=== PATIENT | female | born 1995 | race African-American/Black ===

== ENCOUNTER 2017-10-16 19:59 | Emergency (ER) | payer MEDICAID, SELFPAY ==
[2017-10-16 20:00] VITALS: BP 129/83; PULSE 86; RESP 15; TEMP 37.3; BMI 38.2
--- NOTE | 2017-10-16 21:32 | ED.VISSUMM ---
- ER Visit Summary Date of Service: 10/16/17 Chief Complaint: [] Bilateral ear pain History of Present Illness: The patient is a 22 F [] complaining of bilateral ear pain beginning 2 days ago. Denies fevers. Reports mild sore throat. No other complaints at this time. Physical Examination: [] HEENT exam reveals bilateral tympanic membrane erythema consistent with bilateral otitis media. Moist mucous membranes. Remainder of exam is unremarkable. Test Results: [] None. Emergency Department Course and Treatment: [] Patient provided oral Augmentin and ibuprofen for symptom relief. Patient provided with a prescription of Augmentin 875 #14. I encourage PCP follow-up. Treatment Plan: [] Follow-up with PCP, outpatient antibiotic prescription. Disposition: [] Discharge, stable. Impression: [] Bilateral otitis media This note was generated with [employer] dictation software. It may contain incorrect words, spelling, and punctuation that were not noted in review of the chart prior to signing ED Disposition - Plan for ED Patient: Chief Complaint: Ear Problem Referrals: Taye Majano MD [Primary Care Provider] -
--- NOTE | 2017-10-16 21:33 | ED.DEP ---
ED Disposition - Plan for ED Patient: Disposition: Home or Assisted Living Chief Complaint: Ear Problem Instructions: ED Otitis Media Acute Adult Prescriptions: Amoxicillin/Potassium Clav [Augmentin 875-125 Tablet] 1 ea PO BID #14 tab Referrals: Taye Majano MD [Primary Care Provider] -
[2017-10-16] MEDS: Amox/Clavulanate 875 MG Tablet PO (21:52)
[2017-10-16] MEDS: Ibuprofen 400 MG Tablet 800 MG PO (21:52)
[2017-10-16 21:54] VITALS: RESP 14
== END 2017-10-16 21:54 | disposition home or self-care (01) ==
LOC: ED 21:40
PROVIDERS: Emergency Provider Emergency Medicine; Family Provider Family Medicine; PCP Family Medicine
DX: H66.93 Otitis media, unspecified, bilateral (principal)
CPT/HCPCS: 99283

== ENCOUNTER 2018-05-24 19:25 | Emergency (ER) | payer MEDICAID, SELFPAY ==
[2018-05-24 19:25] VITALS: BP 123/74; PULSE 77; RESP 16; TEMP 37; O2SAT 97; BMI 38.4
--- NOTE | 2018-05-24 20:13 | ED.RN ---
PT STATES SHE IS GOING TO SEE HER FAMILY TOMORROW. LWBS.
== END 2018-05-24 20:05 | disposition left against medical advice (07) ==
LOC: ED 09-27 13:09
PROVIDERS: Emergency Provider Emergency Medicine; Family Provider Family Medicine; PCP Family Medicine
DX: Z53.21 Procedure and treatment not carried out due to patient leaving prior to being seen by health care provider (principal)

== ENCOUNTER 2018-06-04 18:49 | Emergency (ER) | payer MEDICAID, SELFPAY ==
[2018-06-04 18:50] VITALS: BP 135/74; PULSE 75; RESP 16; TEMP 36.7; O2SAT 98; BMI 39.3
--- NOTE | 2018-06-04 19:13 | EKG12_ITS ---
Test Reason : CHEST PAIN Blood Pressure : / mmHG Vent. Rate : 064 BPM Atrial Rate : 064 BPM P-R Int : 162 ms QRS Dur : 080 ms QT Int : 388 ms P-R-T Axes : 014 047 026 degrees QTc Int : 400 ms Normal sinus rhythm Septal infarct , age undetermined Abnormal ECG Confirmed by CONRADO RODRIGUEZ, DILSHAD ([id number]), desk editor ALONSO SARMIENTO ([id number]) on 06/08/2018 8:55:20 AM Referred By: ZHOU/JOHAN Confirmed By:DILSHAD CAMP MD
--- NOTE | 2018-06-04 19:13 | RAD_ITS ---
STUDY: X-RAY CHEST REASON FOR EXAM: Female, 23 years old. Chest pain TECHNIQUE: Single AP portable view of the chest. COMPARISON: 12/23/2015 FINDINGS: The lungs are clear and expanded. There is no demonstrated pleural abnormality. Normal size heart. Normal mediastinum and asad. Normal visualized pulmonary arteries. Normal visualized aortic arch and descending thoracic aorta. Normal visualized thoracic spine. Normal visualized ribs, clavicles, and shoulders. There is no demonstrated abnormality of the visualized soft tissue structures of the upper abdomen. RAD/Chest 1 View (Portable) IMPRESSION: Normal x-ray examination of the chest. Electronically Signed: Michael Vasquez DO at 20:27 EDT Tel , Service support ,
[2018-06-04 19:40] VITALS: BP 123/79; PULSE 78; RESP 16; O2SAT 98
[2018-06-04 20:06] LABS: Absolute Neutrophil Count 4.9 X10^3/uL (2.0-7.7); Basophil# 0.02 X10^3/uL; Basophil% 0.2 % (0-1); Eosinophils% 1.1 % (0-5); Hematocrit 41.8 % (37-47); Hemoglobin 15.1 g/dl (12.0-15.0); Lymphocyte % 35.5 % (19-41); Mean Corp Hgb Conc 36.1 g/gl (32-36); Mean Corpuscular Hgb 30.8 pg (27.0-32.0); Mean Corpuscular Volume 85.1 fL (81-99); Mean Platelet Vol. 9.6 fl (6.2-12.0); Monocyte# 0.76 X10^3/uL; Monocyte% 8.4 % (0-10); Neutrophil # 4.91 X10^3/uL (2.7-7.7); Neutrophil % 54.6 % (47-70); POSITIVE COUNT NO; POSITIVE DIFFERENTIAL NO; POSITIVE MORPHOLOGY NO; Platelet Count 325 K/mm3 (150-450); RBC Distribution Width CV 11.9 % (11.6-14.6); RBC Distribution Width SD 36.7 fl (35.1-43.9); Red Blood Count 4.91 M/mm3 (4.2-5.4)
[2018-06-04 20:18] LABS: Anion Gap 7 (5-15); BUN 15 mg/dL (7-18); BUN/Creat Ratio 18.1 RATIO (10-20); Calcium,Total 8.9 mg/dL (8.5-10.1); Chloride 106 mmol/L (98-107); Creatinine, Serum 0.83 mg/dL (0.55-1.02); EST Glomerular Filtration Rate 90 mL/min (>60); Est Glom Filt Rate - Afr Amer 109 mL/min (>60); Estimated Creatinine Clearance 82.66 ml/min; Glucose 75 mg/dL (74-106); Potassium 3.7 mmol/L (3.5-5.1); Sodium Level 139 mmol/L (136-145)
--- NOTE | 2018-06-04 21:09 | ED.VISSUMM ---
- ER Visit Summary Date of Service: 06/04/18 Chief Complaint: Chest pain right lower extremity contusion History of Present Illness: The patient is a 23 F who noticed anterior pain and swelling on the anterior basilio region, she has a history of von Willebrand's and thought it was a clot. She also had some sharp stabbing chest pain which has resolved. No fever chills no PE risk factors. Pain is not tearing or radiating to her back, she has no neurological symptoms. Physical Examination: [] Not appear in acute distress. Moist mucous membranes, no obvious facial deformity No C-spine tenderness supple neck. Regular rate and rhythm without any obvious murmurs Clear lungs bilaterally speaking in full sentences without any obvious respiratory distress Abdomen soft and nontender no guarding or rebound Moves all extremities without any difficulty or pain. There is a small area that is slightly raised on her anterior basilio, there is no erythema or calor, neurovascularly intact Skin does not show any obvious rashes or lesions, no trauma. Alert oriented ?3 with no gross focal deficit Emergency Department Course and Treatment: Patient had an unremarkable cardiac workup, I do not see an obvious hematoma but there may be a small underlying hematoma on her anterior basilio region, regardless this is not in the calf or thigh or anywhere where a DVT would present I reassured her she will be discharged in stable condition Discharge stable condition Impression: Chest pain nonspecific Right leg pain This note was generated with [employer] dictation software. It may contain incorrect words, spelling, and punctuation that were not noted in review of the chart prior to signing ED Disposition - Plan for ED Patient: Disposition: Home or Assisted Living Chief Complaint: Chest Pain Instructions: ED Chest Pain NonCardiac Referrals: Taye Majano MD [Primary Care Provider] - 2 Days
[2018-06-04 21:30] VITALS: BP 122/61; PULSE 62; RESP 16; O2SAT 99
== END 2018-06-04 21:31 | disposition home or self-care (01) ==
PROVIDERS: Emergency Provider Emergency Medicine; Family Provider Family Medicine; PCP Family Medicine
DX: R07.9 Chest pain, unspecified (principal); M79.661 Pain in right lower leg; M79.89 Other specified soft tissue disorders; D68.0 Von Willebrand disease
CPT/HCPCS: 71045; 80048; 84484; 85025; 93005; 99284; A4216

== ENCOUNTER 2019-12-26 19:26 | Emergency (ER) | payer SELFPAY ==
[2019-11-20 16:40] VITALS: BMI 38.2
[2019-12-26 19:27] VITALS: BP 152/86; PULSE 85; RESP 14; TEMP 36.8; O2SAT 98; BMI 36.1
--- NOTE | 2019-12-26 19:45 | ED.DCSUM_ITS ---
- ER Visit Summary Date of Service: 12/26/19 Chief Complaint: Headache History of Present Illness: The patient is a 24 F who presents with a headache that is been getting worse over the past 3 days. Patient states that she has been taking Tylenol for her headaches with no improvement. Patient states this feels different than previous migraines and that it has lasted longer. Patient states the pain still feels the same as prior migraine headaches but it has not responded to Tylenol like prior migraine headaches. Patient states the pain is localized to the left side of her head. Patient describes the pain as throbbing. Patient admits to some nausea and vomiting. Patient admits to some photophobia. Patient also admits to some intermittent diplopia which is typical of her migraine headaches. Physical Examination: Vital signs are stable. Patient is afebrile. Patient is in no acute distress. Oral mucosa is pink and moist. Neck is supple. Trachea is midline. There is no JVD noted. Heart was regular rate and rhythm. Lungs are clear and equal bilaterally. Abdomen is soft. Bowel sounds are normal. There is no tenderness. There is no rebound or guarding noted. Skin is warm dry. Cranial nerves II through XII are intact. There are no focal motor or sensory deficits noted. Extremities are intact. There is no calf tenderness or edema. Emergency Department Course and Treatment: Patient was given IV fluids, Reglan, Benadryl, and Toradol. Shortly after getting her medications she called out to the nurse and told the nurse that she needed to go home because her brother possibly broke his arm and she has the only vehicle to bring him to the emergency department. Patient requested to be discharged. Patient was able to ambulate without difficulty. Does not appear to be drowsy. Patient will be discharged home. Patient was instructed to follow-up with her primary care physician in 3 to 5 days. Patient was instructed to rest in a dark quiet room. Patient understood and was agreeable with the plan. All questions were answered. Disposition: Discharge home Impression: 1. Migraine headache This note was generated with [employer] software. It may contain incorrect words, spelling, and punctuation that were not noted in review of the chart prior to signing ED Disposition - Plan for ED Patient: Disposition: Home or Assisted Living Diagnosis: Migraine headache Instructions: ED, Migraine (Classical) Referrals: NOT,DEFINED [NON-STAFF] - 3-5 Days
[2019-12-26] MEDS: DiphenhydrAMINE 50 MG/ML Syringe 25 MG IV (19:54)
[2019-12-26] MEDS: 0.9% Normal Saline 1,000 ML 999 ML IV (19:54)
[2019-12-26] MEDS: Metoclopramide 10 MG/2 ML Vial IV (19:55)
[2019-12-26] MEDS: Ketorolac 30 MG/ML Syringe IV (19:55)
[2019-12-26 20:10] VITALS: BP 118/71; PULSE 86; RESP 16; O2SAT 96
== END 2019-12-26 20:49 | disposition home or self-care (01) ==
PROVIDERS: Emergency Provider Emergency Medicine
DX: G43.909 Migraine, unspecified, not intractable, without status migrainosus (principal); M54.2 Cervicalgia; Z72.0 Tobacco use
CPT/HCPCS: 96361; 96374; 96375; 99283; J7030; A4216

== ENCOUNTER → 2020-02-14 12:17 | Outpatient (CLI) | payer MEDICAID, SELFPAY ==
--- NOTE | 2020-02-14 12:35 | RAD_ITS ---
STUDY: X-RAY - RIGHT KNEE REASON FOR EXAM: Female, 24 years old. Patient states she has had right knee pain ever since her surgery on it in 2013 TECHNIQUE: 3 view(s) of the knee. COMPARISON: None. FINDINGS: No acute fracture, dislocation or osseous destruction. No significant joint space narrowing. No significant productive changes. No significant soft tissue swelling. IMPRESSION: Normal x-ray examination of the knee. Electronically Signed: Doron Ireland, at 22:01 EDT Tel , Service support , RAD/Knee 3 Views
== END ==
PROVIDERS: Visit Provider Nurse Practitioner Family
DX: M25.561 Pain in right knee (principal)
CPT/HCPCS: 73562

== ENCOUNTER → 2020-11-29 07:57 | Outpatient (CLI) | payer MEDICAID, SELFPAY ==
--- NOTE | 2020-11-29 08:19 | BI_ITS ---
MAMMOGRAPHY - BILATERAL SCREENING REASON FOR EXAM: Female, 25 years old. Routine annual screening examination. PERTINENT HISTORY: Mother with breast cancer. Grandmother with breast cancer. Aunts with breast cancer. TECHNIQUE: Digital bilateral breast salbador (3D mammographic acquisition) in the CC and MLO projections. 2-D mediolateral oblique (MLO) and craniocaudad (CC) views of both breasts were obtained. CAD: Full Field Digital Mammography with Computer Added Detection was performed. COMPARISON: None. Baseline examination. FINDINGS: Breast Composition: The breasts are heterogeneously dense, which may obscure small masses. There are no dominant masses or suspicious calcifications. No other significant abnormalities are identified. BI/SCRN MAMM (CAD)W/SALBADOR BILAT IMPRESSION: Negative screening mammogram. Yearly followup mammogram recommended. (A) ASSESSMENT CATEGORY: BIRADS Category 1: Negative. A letter regarding these results will be sent to the patient by the facility within 30 days. Approximately 10% of breast cancers are not detected by mammography. A normal mammogram should not delay biopsy of a clinically suspicious abnormality. [id number] Electronically Signed: Sunday Wallace MD at 10:00 EDT , Service support ,
== END ==
DX: Z12.31 Encounter for screening mammogram for malignant neoplasm of breast (principal); Z80.3 Family history of malignant neoplasm of breast
CPT/HCPCS: 77063; 77067

== ENCOUNTER 2020-12-05 11:28 | Emergency (ER) | payer MEDICAID, SELFPAY ==
[2020-12-05 11:29] VITALS: BP 157/88; PULSE 85; RESP 18; TEMP 36.4; O2SAT 98; BMI 31.9
--- NOTE | 2020-12-05 12:17 | RAD_ITS ---
STUDY: X-RAY - LEFT HAND REASON FOR EXAM: Female, 25 years old. Injury TECHNIQUE: 3 view(s) of the hand. COMPARISON: Comparison is made with prior study dated 01/25/2012. FINDINGS: Normal radiocarpal articulation. Normal distal radioulnar joint. Normal visualized carpal bones. Normal carpal articulations Normal carpometacarpal articulation of the thumb. Normal second through fifth carpometacarpal joints. Normal metacarpi. Normal metacarpophalangeal joint of the thumb. Normal interphalangeal joint of the thumb. Normal proximal and distal phalanges of the thumb. Normal metacarpophalangeal joints of the second through fifth fingers. Normal proximal and distal interphalangeal joints of the second through fifth fingers. Normal phalanges of the second through fifth fingers. The soft tissue structures are unremarkable. RAD/Hand Min 3 Views IMPRESSION: Normal x-ray examination of the hand. Electronically Signed: Sunday Wallace MD at 12:38 EDT , Service support ,
--- NOTE | 2020-12-05 13:10 | ED.DCSUM_ITS ---
History of Present Illness Chief Complaint: Upper Extremity Injury Informant: Patient Narrative: Patient presents with 1 week of left hand pain. She states it had been swollen. This morning she noted some redness but that is resolved. She notes pain over the dorsum of the left hand from the little and ring finger MCP joint proximally to the wrist joint. She denies any trauma. She states that she has been diagnosed with a fracture before without any trauma. 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 Past Medical History - Allergies and Home Meds Allergies/Adverse Reactions: Allergies hydrocodone bitartrate [From Vicodin] Adverse Reaction (Verified 12/05/20 11:33) Vomiting Primary Care Physician: [facility],Chioma Gilliland [Primary Care Provider] - Past Medical History: None Surgical History: noncontributory Smoking Status: Current every day smoker Drugs: None Review of Systems General: Denies: Chills, Fever, Sweats Eyes: Denies: Visual changes - bilaterally, Diplopia ENT: Denies: Rhinorrhea, Sore throat Cardiovascular: Denies: Chest pain, Palpitations Respiratory: Denies: Dyspnea, Cough, Dyspnea on exertion Gastrointestinal: Denies: Abdominal pain, Nausea, Vomiting, Diarrhea, Melena, Hematochezia Genitourinary: Denies: Dysuria, Hematuria, Frequency Musculoskeletal: Reports: Swelling, Extremity Pain. Denies: Back pain Skin: Denies: Rash, Wounds Neurological: Denies: Headache, Weakness, Numbness Physical Exam Vital Signs/Narrative: Vital Signs Temp Pulse Resp BP Pulse Ox 12/05/20 11:29 97.6 F L 85 18 157/88 H 98 Inital Vital Signs reviewed: Yes General: Well nourished, Well developed, No Acute Distress Head: Normocephalic, Atraumatic Eyes: Perrl, EOMI ENT: Moist mucous membranes, No rhinorrhea Neck: Supple, Nontender Cardiovascular: Regular rate, Regular rhythm, No murmurs Respiratory: No distress, CTA bilaterally, Chest nontender Abdomen: Soft, Nontender, Nondistended, Normal bowel sounds Back: Nontender, Normal Inspection Extremities: No edema, Tenderness - Tenderness to palpation over the fourth and fifth metacarpals. No deformity. Neurovascular intact. No erythema. No significant swelling or crepitance. Skin: Normal color, No rash Neurological: Alert, Oriented x3, Cranial nerves II-XII grossly intact, Normal Strength, Normal Sensation Psychological: Normal affect, Normal Mood Diagnostic/Tx/Re-eval Clinical Impression(s) from Imaging Studies Hand X-Ray 12/05/20 12:17 IMPRESSION: Normal x-ray examination of the hand. Electronically Signed: Sunday Wallace MD at 12:38 EDT , Service support , - Medical Decision Making My interpretation of the plain films of the left hand are no acute fracture. Allergy concurs. I would have her use anti-inflammatories rest with a cock-up splint follow-up with primary care 10 days if not improved ED Disposition - Plan for ED Patient: Disposition: Home or Assisted Living Diagnosis: Left hand tendonitis Instructions: ED Tendonitis Prescriptions: Naproxen [Naprosyn] 500 mg PO BID #20 tablet Prescription Printed Referrals: [facility],Chioma Gilliland [Primary Care Provider] - (10 days if not improved)
== END 2020-12-05 14:09 | disposition home or self-care (01) ==
PROVIDERS: Emergency Provider Emergency Medicine
DX: M77.8 Other enthesopathies, not elsewhere classified (principal); M79.642 Pain in left hand; F17.200 Nicotine dependence, unspecified, uncomplicated
CPT/HCPCS: 73130; 99283

== ENCOUNTER → 2020-12-19 14:02 | Outpatient (CLI) | payer MEDICAID, SELFPAY ==
[2020-12-05 11:29] VITALS: BMI 31.9
--- NOTE | 2020-12-19 14:10 | RAD_ITS ---
INDICATION: left wrist pain EXAMINATION/TECHNIQUE: X-RAY - LEFT XR Wrist Min 3 Views COMPARISON: None. FINDINGS: No acute fracture or malalignment. No blastic or lytic lesions. No degenerative changes are seen. The soft tissues are unremarkable. RAD/Wrist min 3 Views IMPRESSION: No acute radiographic abnormalities. Electronically Signed: Elmer Strauss MD at 22:16 EDT Tel , Service support ,
== END ==
DX: M25.532 Pain in left wrist (principal); M25.432 Effusion, left wrist
CPT/HCPCS: 73110

== ENCOUNTER → 2021-02-05 10:18 | Outpatient (CLI) | payer MEDICAID, SELFPAY ==
[2021-02-05 12:15] LABS: Erythrocyte Sedimentation Rate 2 mm/hr (0-30)
[2021-02-05 12:17] LABS: Absolute Lymphocyte Count 2.31 X10^3/uL (0.83-4.51); Basophil# 0.04 X10^3/uL; Basophil% 0.5 % (0-1); Eosinophil# 0.12 X10^3/uL; Eosinophils% 1.5 % (0-5); Hematocrit 42.7 % (37-47); Hemoglobin 14.7 g/dL (12.0-15.0); Lymphocyte # 2.31 X10^3/ul (0.83-4.51); Lymphocyte % 28.7 % (19-41); Mean Corp Hgb Conc 34.4 g/dL (32-36); Mean Corpuscular Hgb 30.1 pg (27.0-32.0); Mean Corpuscular Volume 87.5 fL (81-99); Mean Platelet Vol. 10.1 fl (6.2-12.0); Monocyte# 0.59 X10^3/uL; Monocyte% 7.3 % (0-10); NRBC Flagged by Analyzer 0 % (0-5); Neutrophil # 4.98 X10^3/uL (2.7-7.7); Neutrophil % 61.8 % (47-70); Platelet Count 315 K/mm3 (150-450); RBC Distribution Width CV 11.6 % (11.6-14.6); RBC Distribution Width SD 37.4 fl (35.1-43.9); Red Blood Count 4.88 M/mm3 (4.2-5.4); White Blood Count 8.1 K/mm3 (4.4-11.0)
[2021-02-05 12:35] LABS: ALB/GLOB Ratio 1.3 RATIO (0.9-2.4); AST(SGOT) 11 U/L (15-37); Alanine Aminotransfer ALT/SGPT 21 U/L (13-56); Albumin, Serum 3.9 g/dL (3.2-5.0); Alkaline Phosphatase 96 U/L (45-117); Anion Gap 7 (5-15); BUN 16 mg/dL (7-18); BUN/Creat Ratio 18.3 RATIO (10-20); CRP < 2.90 mg/L (0.0-3.0); Chloride 106 mmol/L (98-107); Creatinine, Serum 0.88 mg/dL (0.55-1.02); EST Glomerular Filtration Rate 83 mL/min (>60); Est Glom Filt Rate - Afr Amer 100 mL/min (>60); Globulin 3.1 g/dL (2.2-4.2); Glucose 102 mg/dL (74-106); Potassium 3.8 mmol/L (3.5-5.1); Sodium Level 139 mmol/L (136-145)
== END ==
PROVIDERS: PCP Nurse Practitioner Adult Health; Referring Provider Nurse Practitioner Adult Health; Visit Provider Nurse Practitioner Adult Health
DX: G50.1 Atypical facial pain (principal)
CPT/HCPCS: 36415; 80053; 85025; 85652; 86140

== ENCOUNTER 2021-02-07 14:06 | Emergency (ER) | payer MEDICAID, SELFPAY ==
[2021-02-07 14:07] VITALS: BP 143/84; PULSE 83; RESP 16; TEMP 35.8; O2SAT 98; BMI 35.0
--- NOTE | 2021-02-07 15:01 | CT_ITS ---
STUDY: CT BRAIN WITHOUT CONTRAST REASON FOR EXAM: Female, 25 years old. Pain RADIATION DOSAGE (If Supplied By Facility): CTDIvol = ( 38.43 ) mGy, DLP = ( 640.64 ) mGycm TECHNIQUE: Transaxial CT imaging of the brain was performed without administration of intravenous contrast material. Individualized dose optimization techniques were used for this CT. COMPARISON: No relevant priors. FINDINGS: Normal soft tissue structures. Normal calvarium. Normal size ventricles and extra-axial spaces for the patient''s age. Normal white matter tracts of the cerebral hemispheres. Normal basal ganglia and thalami. Normal brainstem. Normal cerebellum. There is no intracranial hemorrhage. There are no findings of an acute ischemic infarction. 1 opacified air cell at the tip of the right mastoid process. CT/Brain/Head without Contrast IMPRESSION: Normal unenhanced CT scan of the brain. One opacified air cell of the tip of the right mastoid process. Electronically Signed: Sabina Whitney MD at 15:53 EDT , Service support ,
--- NOTE | 2021-02-07 15:04 | EDS_ITS ---
HPI History of Present Illness Chief Complaint: Headache Narrative Narrative: 25-year-old female presenting with right facial pain. This is been present for 2 weeks. Patient was seen by her PCP and had lab work drawn which was normal. She had a normal sed rate. CBC and CMP were unremarkable. She was referred to rigging and controls aircraft mechanic who saw her today. He states that her eye is structurally normal. She does complain of some blurring in the vision intermittently. She also states she has a history of migraine headache but it does not usually last this long. Does not feel the same to her. She denies any dizziness, lightheadedness. [facility] Medical History Migraines Home Medications naproxen 500 mg PO BID #20 tablet 12/05/20 [Rx Last Taken Unknown] Allergy/AdvReac Type Severity Reaction Status Date / Time hydrocodone bitartrate AdvReac Vomiting Verified 02/07/21 14:09 [From Vicodin] Social History Smoking Status: Current every day smoker tobacco type: cigarettes ROS ROS ED Constitutional Constitutional ED: Denies chills, fever(s) or sweats Eyes Eyes: Reports blurry vision right; Denies change in vision ENT ENT ED: Denies ear pain or sore throat Cardiovascular Cardiovascular: Denies chest pain, palpitations or racing heartbeat Respiratory/Chest Respiratory/Chest: Denies cough, dyspnea or sputum Gastrointestinal Gastrointestinal: Denies abdominal pain, constipation, diarrhea, nausea or vomiting Genitourinary Genitourinary ED: Denies dysuria, hematuria or urinary frequency Musculoskeletal Musculoskeletal: Denies arthralgias, myalgias or neck pain Integumentary Denies abscess, Abrasions or rash Neurologic Neurologic: Reports headache(s); Denies paresthesias or weakness Psychiatric Psychiatric: Denies anxiety, depression, suicidal ideation or suicidal thoughts Endocrine Endocrinology: Denies polydipsia or polyuria EXAM Physical Exam Const Vital Signs: 02/07/21 14:07 Temperature 96.4 F L Temperature Source Temporal Pulse Rate 83 Respiratory Rate 16 Blood Pressure 143/84 H Blood Pressure Mean 103 Pulse Ox 98 Oxygen Delivery Method Room Air Positive well nourished General Appearance ED: NAD; Negative for pallor HEENT Reports normocephalic, head/scalp atraumatic and moist mucous membranes HEENT Narrative: No tenderness over the bilateral temples. atraumatic Eyes PERRL and EOMs intact bilaterally Neck no lymphadenopathy and supple Chest Wall inspection of chest normal and palpation of chest normal Resp normal respiratory effort and clear to auscultation bilaterally Auscultation: Negative for rales, rhonchi or wheezes Cardio regular rate and regular rhythm GI normal to inspection, nondistended, normoactive bowel sounds Narrative: Deferred Back/Spine Cervical Spine: Negative for cervical spine tenderness Extremity normal to inspection General Extremety ED: Yes edema and tenderness General Extremity: edema Neuro oriented x3 and CN's II-XII intact bilaterally Sensorium / Orientation: alert Motor Exam: strength 5/5 throughout Psych mental status grossly normal Attitude: No agitated Skin no rashes or lesions noted and no wounds General Skin Exam: Negative for jaundice or pallor MDM MDM MDM Narrative Medical decision making narrative: Patient seen and evaluated on arrival. Vital signs are stable and she is afebrile. She complains of pain to the right side of the scalp, face. I did review her outpatient lab work which shows a white blood cell count of 8.1, hemoglobin 14.7, hematocrit 42.7, platelets 315. Creatinine 0.88 BUN 16 electrolytes normal LFTs normal. ESR 2. Patient will be given Reglan, Benadryl. Obtain CT brain which is normal. Given the patient is already seen an rigging and controls aircraft mechanic to evaluate her right eye and her lab work is normal. I do not believe she needs anything else acutely. Patient states she feels better with a migraine cocktail. Patient will be referred to neurology. Patient amenable to this plan. Impression: 1. Headache 2. Right eye pain Radiography Diagnostic Testing: Radiology Impression Brain CT 02/07/21 15:01 IMPRESSION: Normal unenhanced CT scan of the brain. One opacified air cell of the tip of the right mastoid process. Electronically Signed: Sabina Whitney MD at 15:53 EDT , Service support , Discharge Plan Triage Chief Complaint: Headache ED Provider: John Bartlett Dx/Rx/DC Orders Instructions: ED Headache Unspecified Prescriptions: No Action naproxen 500 MG tablet 500 mg PO BID Qty: 20 RF: 0 Primary Care Provider: Bev Gomez Referrals: Kunal Catalan MD [STAFF PHYSICIAN] - As soon as possible Bev Gomez NP-C [Primary Care Provider] - Disposition Disposition: Home, self care
[2021-02-07] MEDS: 0.9% Normal Saline 1,000 ML 999 ML IV (15:30)
[2021-02-07] MEDS: Metoclopramide 10 MG/2 ML Vial IV (15:30)
[2021-02-07] MEDS: DiphenhydrAMINE 50 MG/ML Syringe 25 MG IV (15:30)
[2021-02-07 17:32] VITALS: BP 135/82; PULSE 71; RESP 18; O2SAT 98
== END 2021-02-07 17:36 | disposition home or self-care (01) ==
PROVIDERS: Emergency Provider Student in an Organized Health Care Education/Training Program; PCP Nurse Practitioner Adult Health
DX: R51.9 Headache, unspecified (principal); H57.11 Ocular pain, right eye; F17.210 Nicotine dependence, cigarettes, uncomplicated
CPT/HCPCS: 70450; 96361; 96374; 96375; 99282; J7030; A4216

== ENCOUNTER → 2021-02-27 06:23 | Outpatient (CLI) | payer MEDICAID, SELFPAY ==
[2021-02-07 14:07] VITALS: BMI 35.0
--- NOTE | 2021-02-27 06:41 | MRI_ITS ---
STUDY: MRI BRAIN WITH AND WITHOUT CONTRAST REASON FOR EXAM: Female, 25 years old. L FACE PAIN AFTER DENTAL PROCEDURE 2 MONTHS AGO TECHNIQUE: Standardized multiplanar fat and water weighted pulse sequences were obtained. IV 18 cc dotarem was administered for the contrast portion of the examination. COMPARISON: None. FINDINGS: Normal size of the ventricles and extra-axial spaces for the patient''s age. Normal white matter tracts of the supratentorial brain. There is no evidence for recent intracranial ischemia or other cause of cytotoxic edema on diffusion weighted imaging (DWI). Normal T2* images of the brain without demonstrated susceptibility artifact. There is no demonstrated hemosiderin stain. Normal bilateral basal ganglia. Normal thalami. There is no extra-axial fluid accumulation. Normal flow voids within the major intracranial circulation suggesting patency by spin echo criteria. Normal venous enhancement. There is no enhancing intra-axial or extra-axial abnormality. Normal sella turcica, pituitary gland, infundibular stalk, optic chiasm and hypothalamus. Normal tectal plate and pineal gland. Normal midbrain, tripp and medulla. Normal cerebellum. Normal basal cisterns. Normal bilateral temporal bones. Normal bilateral internal auditory canals. No demonstrated orbital abnormality, within the constraints of a routine brain study. Normal visualized paranasal sinuses. Normal calvarium and skull base. Normal visualized soft tissue structures. Normal visualized upper cervical spine. MRI/Brain W/WO Contrast IMPRESSION: Normal unenhanced and enhanced MRI of the brain. Electronically Signed: Gregory Gallegos MD at 8:13 EDT Tel , Service support ,
== END ==
DX: G50.1 Atypical facial pain (principal)
CPT/HCPCS: 70553; A9575

== ENCOUNTER 2021-04-27 23:23 | Emergency (ER) | payer MEDICAID, SELFPAY ==
[2021-04-27 23:24] VITALS: BP 135/81; PULSE 61; RESP 18; TEMP 36.6; O2SAT 98; BMI 34.9
--- NOTE | 2021-04-28 00:31 | EX.ED.DYSGE1 ---
HPI History of Present Illness Chief Complaint: Seizure Narrative Narrative: 26-year-old female presenting with concern for possible seizure. She states this is witnessed by her family. Patient states she has no history of seizures is not on any antiepileptic drugs. Patient does state that she was told in the past that she has abnormal reactions to stress and anxiety which caused the symptoms. She has chronic headache pain for which her neurologist tells her to smoke marijuana. She states this is due to her previous surgery for dental infection that has caused chronic pain in her head. Patient denies any fever, chills. She denies nausea or vomiting. She feels otherwise well currently. She states she is just a little bit sleepy. [facility] Medical History Migraines Seizures Home Medications NK 04/27/21 [History Last Taken Unknown] Allergy/AdvReac Type Severity Reaction Status Date / Time hydrocodone bitartrate AdvReac Vomiting Verified 04/27/21 23:27 [From Vicodin] Social History Smoking Status: Current every day smoker tobacco type: cigarettes ROS ROS ED Constitutional Constitutional ED: Denies chills or fever(s) Eyes Eyes: Denies blurry vision or diplopia ENT ENT ED: Denies rhinorrhea or sore throat Cardiovascular Cardiovascular: Denies chest pain or palpitations Respiratory/Chest Respiratory/Chest: Denies cough or dyspnea Gastrointestinal Gastrointestinal: Denies abdominal pain, nausea or vomiting Genitourinary Genitourinary ED: Denies dysuria or hematuria Musculoskeletal Musculoskeletal: Denies arthralgias or myalgias Integumentary Denies abscess or rash Neurologic Neurologic: Reports headache(s); Denies paresthesias Psychiatric Psychiatric: Denies anxiety or depression EXAM Physical Exam Const Vital Signs: 04/27/21 23:24 Temperature 97.9 F Temperature Source Temporal Pulse Rate 61 Respiratory Rate 18 Blood Pressure 135/81 H Blood Pressure Mean 99 Pulse Ox 98 Oxygen Delivery Method Room Air Positive well nourished HEENT Reports moist mucous membranes trauma Eyes PERRL and EOMs intact bilaterally Neck no lymphadenopathy and supple Resp normal respiratory effort and clear to auscultation bilaterally Cardio regular rate and regular rhythm Extremity normal to inspection General Extremety ED: Negative for tenderness Neuro oriented x3, CN's II-XII intact bilaterally and no sensory deficits noted Sensorium / Orientation: alert Motor Exam: strength 5/5 throughout Psych mental status grossly normal Skin no rashes or lesions noted and no wounds MDM MDM MDM Narrative Medical decision making narrative: Patient presenting for a mid patient herself states she has no seizure history and states she does have a history of abnormal reactions to stress or anxiety. She states has been under a lot of stress secondary to working 7 days a week. Patient is from out of town and she is here to see her girlfriend and this is where she stays. Patient has a chronic headache which is unchanged. She has no focal neurologic deficits on examination. Her vital signs are stable and she is afebrile. She states that this time she feels tired and she does not want any work-up or evaluation and she just wants to be discharged home. I feel the patient has the capacity to make decision at this time. We did discuss return precautions. Impression: 1. Altered mental status resolved Discharge Plan Triage Chief Complaint: Seizure ED Provider: John Bartlett Dx/Rx/DC Orders Instructions: Diagnosing Epilepsy Prescriptions: No Action NK RF: 0 Primary Care Provider: [facility] - Disposition Disposition: Home, Self Care
[2021-04-28 00:45] VITALS: BP 133/60; PULSE 67; RESP 18; O2SAT 96
== END 2021-04-28 00:47 | disposition home or self-care (01) ==
LOC: ED 04-28 00:47
PROVIDERS: Emergency Provider Student in an Organized Health Care Education/Training Program
DX: G40.909 Epilepsy, unspecified, not intractable, without status epilepticus (principal); F17.210 Nicotine dependence, cigarettes, uncomplicated; F41.9 Anxiety disorder, unspecified
CPT/HCPCS: 99283

== ENCOUNTER → 2021-05-06 12:20 | Outpatient (CLI) | payer MEDICAID, SELFPAY ==
[2021-05-06 13:31] LABS: Hemoglobin A1c 5.1 % (3.8-5.6)
[2021-05-06 14:27] LABS: T4 Free Direct 0.97 ng/dL (0.76-1.46); Thyroid Stim Hormone (TSH) 0.68 uIU/mL (0.358-3.74)
== END ==
DX: G40.89 Other seizures (principal)
CPT/HCPCS: 36415; 83036; 84439; 84443

== ENCOUNTER → 2021-05-30 12:16 | Outpatient (CLI) | payer MEDICAID, SELFPAY ==
--- NOTE | 2021-05-30 14:51 | TELEMED_ITS ---
[facility] Tele[facility] has confirmed receipt of a request for visit. This document confirms receipt of the order initiating the consult. To find the results of the consultation, please view the patient's reports for the scanned Telemed Consult.
== END ==
PROVIDERS: Referring Provider Nurse Practitioner Adult Health; Visit Provider Nurse Practitioner Adult Health
DX: G40.89 Other seizures (principal)
CPT/HCPCS: 95819

== ENCOUNTER 2021-09-17 11:35 | Outpatient (CLI) | payer MEDICAID, SELFPAY ==
[2021-09-17 12:44] LABS: Absolute Lymphocyte Count 2.25 X10^3/uL (0.83-4.51); Absolute Neutrophil Count 5.8 X10^3/uL (2.0-7.7); Basophil# 0.03 X10^3/uL; Basophil% 0.3 % (0-1); Eosinophil# 0.06 X10^3/uL; Eosinophils% 0.7 % (0-5); Hemoglobin 14.9 g/dL (12.0-15.0); Lymphocyte # 2.25 X10^3/ul (0.83-4.51); Lymphocyte % 25.5 % (19-41); Mean Corp Hgb Conc 34.7 g/dL (32-36); Mean Corpuscular Hgb 30.3 pg (27.0-32.0); Mean Corpuscular Volume 87.4 fL (81-99); Mean Platelet Vol. 9.7 fl (6.2-12.0); Monocyte% 7.9 % (0-10); NRBC Flagged by Analyzer 0 % (0-5); Neutrophil # 5.77 X10^3/uL (2.7-7.7); Neutrophil % 65.4 % (47-70); Platelet Count 304 K/mm3 (150-450); RBC Distribution Width CV 11.9 % (11.6-14.6); RBC Distribution Width SD 38.2 fl (35.1-43.9); Red Blood Count 4.92 M/mm3 (4.2-5.4); White Blood Count 8.8 K/mm3 (4.4-11.0)
[2021-09-17 13:47] LABS: Internal QC Validated? YES +Cl - CLEAR BKGD; Monotest Negative (Negative)
== END 2021-09-17 23:59 | disposition short-term general hospital (02) ==
LOC: LAB 11:37
PROVIDERS: Visit Provider Nurse Practitioner Adult Health
DX: R59.1 Generalized enlarged lymph nodes (principal); R53.83 Other fatigue
CPT/HCPCS: 36415; 85025; 86308

== ENCOUNTER 2021-11-27 14:14 | Outpatient (CLI) | payer MEDICAID, SELFPAY ==
[2021-11-27 16:23] LABS: Absolute Lymphocyte Count 2.39 X10^3/uL (0.83-4.51); Absolute Neutrophil Count 4.4 X10^3/uL (2.0-7.7); Basophil# 0.02 X10^3/uL; Basophil% 0.3 % (0-1); Eosinophil# 0.08 X10^3/uL; Eosinophils% 1.1 % (0-5); Hematocrit 41.7 % (37-47); Hemoglobin 14.4 g/dL (12.0-15.0); Lymphocyte # 2.39 X10^3/ul (0.83-4.51); Lymphocyte % 31.7 % (19-41); Mean Corp Hgb Conc 34.5 g/dL (32-36); Mean Corpuscular Hgb 30.1 pg (27.0-32.0); Mean Corpuscular Volume 87.2 fL (81-99); Mean Platelet Vol. 9.9 fl (6.2-12.0); Monocyte# 0.59 X10^3/uL; Monocyte% 7.8 % (0-10); NRBC Flagged by Analyzer 0 % (0-5); Neutrophil # 4.44 X10^3/uL (2.7-7.7); Neutrophil % 58.8 % (47-70); Platelet Count 379 K/mm3 (150-450); RBC Distribution Width CV 11.7 % (11.6-14.6); RBC Distribution Width SD 37.6 fl (35.1-43.9); Red Blood Count 4.78 M/mm3 (4.2-5.4); White Blood Count 7.5 K/mm3 (4.4-11.0)
[2021-11-27 16:51] LABS: ALB/GLOB Ratio 1.2 RATIO (0.9-2.4); AST(SGOT) 11 U/L (15-37); Alanine Aminotransfer ALT/SGPT 23 U/L (13-56); Albumin, Serum 3.9 g/dL (3.2-5.0); Alkaline Phosphatase 94 U/L (45-117); Anion Gap 4 (5-15); BUN 10 mg/dL (7-18); BUN/Creat Ratio 11.1 RATIO (10-20); Calcium,Total 9.4 mg/dL (8.5-10.1); Chloride 106 mmol/L (98-107); Cholesterol 166 mg/dL (200); EST Glomerular Filtration Rate 80 mL/min (>60); Est Glom Filt Rate - Afr Amer 96 mL/min (>60); Globulin 3.2 g/dL (2.2-4.2); Glucose 97 mg/dL (74-106); High Density Lipoprotein 32 mg/dL; Potassium 3.9 mmol/L (3.5-5.1); Protein, Total 7.1 g/dL (6.4-8.2); Sodium Level 139 mmol/L (136-145); Triglycerides 180 mg/dL; Very Low Density Lipoprotein 36 mg/dL (5-40)
== END 2021-11-27 23:59 | disposition home or self-care (01) ==
LOC: LAB 14:16
PROVIDERS: Referring Provider Nurse Practitioner Adult Health; Visit Provider Nurse Practitioner Adult Health
DX: F31.81 Bipolar II disorder (principal)
CPT/HCPCS: 36415; 80053; 80061; 85025

== ENCOUNTER 2021-12-10 12:55 | Outpatient (CLI) | payer MEDICAID, SELFPAY ==
--- NOTE | 2021-12-10 12:57 | BI_ITS ---
MAMMOGRAPHY - BILATERAL SCREENING REASON FOR EXAM: Female, 26 years old. Routine annual screening examination. PERTINENT HISTORY: Mother with breast cancer. Grandmother with breast cancer. Aunts with breast cancer. TECHNIQUE: Digital bilateral breast salbador (3D mammographic acquisition) in the CC and MLO projections. 2-D mediolateral oblique (MLO) and craniocaudad (CC) views of both breasts were obtained. CAD: Full Field Digital Mammography with Computer Added Detection was performed. COMPARISON: Comparison is made with prior study dated 11/29/2020. FINDINGS: Breast Composition: The breasts are heterogeneously dense, which may obscure small masses. There are no dominant masses or suspicious calcifications. No other significant abnormalities are identified. There has been no significant change since the prior study. BI/SCRN MAMM (CAD)W/SALBADOR BILAT IMPRESSION: Stable bilateral screening mammogram. Yearly follow-up mammogram recommended. (A) ASSESSMENT CATEGORY: BIRADS Category 1: Negative. A letter regarding these results will be sent to the patient by the facility within 30 days. Approximately 10% of breast cancers are not detected by mammography. A normal mammogram should not delay biopsy of a clinically suspicious abnormality. [id number] Electronically Signed: Sunday Wallace MD at 13:34 EDT ,
== END 2021-12-10 23:59 | disposition home or self-care (01) ==
LOC: OPBI 12:55
PROVIDERS: Visit Provider Nurse Practitioner Adult Health
DX: Z12.31 Encounter for screening mammogram for malignant neoplasm of breast (principal); Z80.3 Family history of malignant neoplasm of breast
CPT/HCPCS: 77063; 77067

== ENCOUNTER 2021-12-17 10:22 | Outpatient (CLI) | payer MEDICAID, SELFPAY ==
[2021-12-17 11:18] LABS: Hemoglobin A1c 5.3 % (3.8-5.6)
[2021-12-17 11:40] LABS: Vitamin B12 479 pg/mL (211-911)
[2021-12-17 11:50] LABS: Thyroid Stim Hormone (TSH) 1.12 uIU/mL (0.358-3.74)
== END 2021-12-17 23:59 | disposition home or self-care (01) ==
LOC: LAB 10:24
PROVIDERS: Visit Provider Nurse Practitioner Adult Health
DX: R53.83 Other fatigue (principal); Z13.1 Encounter for screening for diabetes mellitus
CPT/HCPCS: 36415; 82607; 83036; 84443

== ENCOUNTER → 2022-08-31 | Outpatient (CLI) | payer MEDICAID, SELFPAY ==
[2022-08-31 12:16] LABS: Absolute Lymphocyte Count 2.44 X10^3/uL (0.83-4.51); Absolute Neutrophil Count 3.9 X10^3/uL (2.0-7.7); Basophil# 0.03 X10^3/uL; Basophil% 0.4 % (0-1); Eosinophil# 0.09 X10^3/uL; Eosinophils% 1.3 % (0-5); Hematocrit 44.9 % (37-47); Hemoglobin 15.1 g/dL (12.0-15.0); Lymphocyte # 2.44 X10^3/ul (0.83-4.51); Lymphocyte % 34.6 % (19-41); Mean Corp Hgb Conc 33.6 g/dL (32-36); Mean Corpuscular Hgb 30.5 pg (27.0-32.0); Mean Corpuscular Volume 90.7 fL (81-99); Mean Platelet Vol. 10.3 fl (6.2-12.0); Monocyte# 0.59 X10^3/uL; Monocyte% 8.4 % (0-10); NRBC Flagged by Analyzer 0 % (0-5); Neutrophil # 3.89 X10^3/uL (2.7-7.7); Neutrophil % 55.2 % (47-70); Platelet Count 298 K/mm3 (150-450); RBC Distribution Width CV 11.7 % (11.6-14.6); Red Blood Count 4.95 M/mm3 (4.2-5.4); White Blood Count 7.1 K/mm3 (4.4-11.0)
[2022-08-31 12:36] LABS: ALB/GLOB Ratio 1.2 RATIO (0.9-2.4); AST(SGOT) 10 U/L (15-37); Alanine Aminotransfer ALT/SGPT 20 U/L (13-56); Albumin, Serum 3.8 g/dL (3.2-5.0); Alkaline Phosphatase 99 U/L (45-117); Anion Gap 3 (5-15); BUN 11 mg/dL (7-18); Calcium,Total 9.3 mg/dL (8.5-10.1); Chloride 105 mmol/L (98-107); Creatinine, Serum 0.92 mg/dL (0.55-1.02); EST Glomerular Filtration Rate 77 mL/min (>60); Est Glom Filt Rate - Afr Amer 94 mL/min (>60); Globulin 3.3 g/dL (2.2-4.2); Glucose 95 mg/dL (74-106); Lipase 116 U/L (73-393); Potassium 3.9 mmol/L (3.5-5.1); Protein, Total 7.1 g/dL (6.4-8.2); Sodium Level 139 mmol/L (136-145)
== END | disposition home or self-care (01) ==
LOC: LAB 10:49
PROVIDERS: Referring Provider Nurse Practitioner Family; Visit Provider Nurse Practitioner Family
DX: R11.10 Vomiting, unspecified (principal)
CPT/HCPCS: 36415; 80053; 83690; 85025

== ENCOUNTER → 2022-10-28 | Outpatient (CLI) | payer BC, MEDICAID, SELFPAY ==
--- NOTE | 2022-10-28 08:50 | RAD_ITS ---
STUDY: X-RAY - RIGHT ELBOW REASON FOR EXAM: Female, 27 years old. Injury. Pain. TECHNIQUE: 3 view(s) of the elbow. COMPARISON: None. FINDINGS: Normal visualized humerus, radius and ulna. Normal radiocapitellar and ulnotrochlear articulations. The soft tissue structures are unremarkable. RAD/Elbow min 3 Views IMPRESSION: No abnormality of the right elbow. Electronically Signed: Vipul Hill, at 12:37 EST ,
== END | disposition home or self-care (01) ==
LOC: RAD 08:45
PROVIDERS: Referring Provider Nurse Practitioner Family; Visit Provider Nurse Practitioner Family
DX: S59.901A Unspecified injury of right elbow, initial encounter (principal); X58.XXXA Exposure to other specified factors, initial encounter
CPT/HCPCS: 73080

== ENCOUNTER → 2023-01-14 | Outpatient (CLI) | payer BC, MEDICAID, SELFPAY ==
--- NOTE | 2023-01-14 11:37 | US_ITS ---
STUDY: ULTRASOUND TRANSVAGINAL CLINICAL: Female, 27 years old. Irregular menses. Constant vaginal bleeding for 5 months. TECHNIQUE: Transvaginal COMPARISON: None. FINDINGS: Uterus is anteverted and midline measuring 6.8 x 4.3 x 2.3 cm.. There are no myometrial masses. Endometrium measures 3 mm in thickness and is hyperechoic.. There are no endometrial masses, and there is no fluid in the endometrial cavity. Normal uterine cervix. Normal right ovary, measuring 2.6 x 2.3 x 3.1 cm. There are multiple follicles without a dominant cyst. Normal vascularity on Doppler imaging. Normal left ovary, measuring 2.5 x 1.7 x 3.3 cm. There are multiple follicles without a dominant cyst. Normal vascularity on Doppler imaging. There is no free fluid in the pelvis. Polycystic ovary disease: No. US/Transvaginal Non- IMPRESSION: Normal pelvic ultrasound. Electronically Signed: Tony Ortiz DO at 19:00 EDT ,
== END | disposition home or self-care (01) ==
PROVIDERS: Referring Provider Nurse Practitioner Women's Health; Visit Provider Nurse Practitioner Women's Health
DX: N92.5 Other specified irregular menstruation (principal)
CPT/HCPCS: 76830

== ENCOUNTER → 2023-01-18 | Outpatient (CLI) | payer BC, MEDICAID, SELFPAY ==
[2023-01-18 16:30] LABS: Hematocrit 42.3 % (37-47); Hemoglobin 14.9 g/dL (12.0-15.0); Mean Corp Hgb Conc 35.2 g/dL (32-36); Mean Corpuscular Hgb 30.5 pg (27.0-32.0); Mean Corpuscular Volume 86.5 fL (81-99); Mean Platelet Vol. 9.7 fl (6.2-12.0); Platelet Count 269 K/mm3 (150-450); RBC Distribution Width CV 11.7 % (11.6-14.6); RBC Distribution Width SD 37.2 fl (35.1-43.9); Red Blood Count 4.89 M/mm3 (4.2-5.4)
[2023-01-18 17:13] LABS: Iron 78 ug/dL (50-170); Iron Binding Capacity,Total 353 ug/dL (250-450); PERCENT IRON SATURATION 22.1 % (15.0-55.0); Thyroid Stim Hormone (TSH) 0.84 uIU/mL (0.358-3.74)
== END | disposition home or self-care (01) ==
DX: R53.83 Other fatigue (principal)
CPT/HCPCS: 36415; 83540; 83550; 84443; 85027

== ENCOUNTER 2023-02-19 21:07 | Emergency (ER) | payer BC, MEDICAID, SELFPAY ==
[2023-02-19 21:08] VITALS: BP 136/90; PULSE 89; RESP 16; TEMP 36.4; O2SAT 100
[2023-02-19 21:14] VITALS: BMI 33.6
--- NOTE | 2023-02-19 21:39 | EX.ED.UPPERE ---
HPI History of Present Illness Chief Complaint: Laceration Detail of Chief Complaint: Injury left index finger Informant: patient Occured/Mechanism Comment: Cut at work Onset/Context/Timing Context: Sudden Onset Timing: Continuous Quality of Pain: - (No) Location: Radial tip of the left index finger Current Severity: Gone Maximum Severity: Mild Worsened by: Initial injury Relieved by: Not applicable Associated Symptoms Associated Symptoms: Negative for Parasthesia, Weakness or Loss of Funtion Narrative Narrative: Patient is a 27-year-old [id number] woman who presents with laceration to the left index finger. Denies paresthesia, anesthesia or motor weakness. She is not on antithrombotic or anticoagulant. She is presently on no medication. Tetanus Immunization: 5-10 years Prior similar symptoms: Yes Recent Illness/Hospitalization: No PFSH PFSH Medical History Migraines Von willebrand disease, type 1 Home Medications buspirone 10 mg tablet 10 mg PO BID 10/28/22 [History Last Taken Unknown] cariprazine 3 mg capsule (Vraylar) 3 mg PO DAILY 10/28/22 [History Last Taken Unknown] melatonin 1 mg tablet 1 mg PO HS PRN 10/28/22 [History Last Taken Unknown] prednisone 20 mg tablet 20 mg PO BID #2 tabs 10/28/22 [Rx Last Taken Unknown] celecoxib 200 mg capsule (Celebrex) 200 mg PO BID #30 caps 11/04/22 [Rx Last Taken Unknown] Allergy/AdvReac Type Severity Reaction Status Date / Time hydrocodone bitartrate AdvReac Vomiting Verified 02/19/23 21:07 [From Vicodin] Surgical History History of arthroscopic knee surgery History of placement of ear tubes History of tonsillectomy and adenoidectomy Social History Smoking Status: Current every day smoker tobacco type: cigarettes ROS ROS ED Musculoskeletal Musculoskeletal: Denies back pain, myalgias, neck pain or other Neurologic Neurologic: Denies paresthesias or weakness Hematologic/Lymphatic Hematologic/Lymphatic: Reports easy bleeding and easy bruising; Denies lymphadenopathy EXAM Physical Exam Const Vital Signs: 02/19/23 21:08 Temperature 97.6 F L Temperature Source Temporal Pulse Rate 89 Respiratory Rate 16 Blood Pressure 136/90 H Blood Pressure Mean 105 Pulse Ox 100 Oxygen Delivery Method Room Air Positive well nourished, well developed and obese General Appearance ED: well developed and NAD Nutritional Appearance: obese HEENT Reports moist mucous membranes normocephalic and atraumatic Eyes PERRL and EOMs intact bilaterally Neck full ROM Resp normal respiratory effort Cardio regular rate and regular rhythm Extremity Negative for normal to inspection Extremity Narrative: Patient has avulsion of skin radial tip of left index finger. Median, radial and ulnar function intact. Extensor and slight tenderness function intact. The flexor digitorum superficialis and flexor digitorum profundus are intact. Capillary fill is normal. Neuro oriented x3, CN's II-XII intact bilaterally, no focal motor deficits and no sensory deficits noted Sensorium / Orientation: alert Psych mental status grossly normal Skin Skin Narrative: Skin avulsion to bite 3 mm MDM MDM MDM Narrative Medical decision making narrative: Patient is not actively bleeding. Patient has a superficial skin avulsion. Treatment is symptomatic. Discharge Plan Triage Chief Complaint: Laceration ED Provider: Steve Brenner Dx/Rx/DC Orders Clinical Impression: Avulsion of skin of finger Instructions: ED Skin Avulsion Prescriptions: No Action buspirone 10 mg tablet 10 mg PO BID melatonin 1 mg tablet 1 mg PO HS PRN Vraylar 3 mg capsule 3 mg PO DAILY prednisone 20 mg tablet 20 mg PO BID Qty: 2 0RF celecoxib [Celebrex] 200 mg capsule 200 mg PO BID Qty: 30 0RF Primary Care Provider: [facility] Hawthorne Referrals: [facility] Rodriguez [Primary Care Provider] - As Needed Disposition Disposition: Home, Self Care
== END 2023-02-19 21:56 | disposition home or self-care (01) ==
PROVIDERS: Emergency Provider Emergency Medicine; Visit Provider Emergency Medicine
DX: S61.211A Laceration without foreign body of left index finger without damage to nail, initial encounter (principal); E66.9 Obesity, unspecified; Z79.899 Other long term (current) drug therapy; F17.210 Nicotine dependence, cigarettes, uncomplicated
CPT/HCPCS: 99282

== ENCOUNTER → 2023-04-06 | Outpatient (CLI) | payer MEDICAID, SELFPAY ==
--- NOTE | 2023-04-06 14:56 | RAD_ITS ---
INDICATION: LOW BACK PAIN EXAMINATION/TECHNIQUE: X-RAY - XR Spine Thoracic 3 Views COMPARISON: 06/04/2018 chest radiograph. FINDINGS: 3 views of the thoracic spine. BONES: Normal anatomic alignment without evidence of fracture or subluxation. No concerning bony lesion or abnormal sclerosis to suggest lesion. DISCS/JOINTS: No significant degenerative change. SOFT TISSUES: Unremarkable. RAD/Thoracic Spine 3 Views IMPRESSION: Unremarkable thoracic spine. If there is persistent clinical concern for spine fracture and this is a trauma patient, recommend dedicated thoracic spine CT. Electronically Signed: Steve Prieto MD at 23:40 EDT ,
--- NOTE | 2023-04-06 15:00 | RAD_ITS ---
INDICATION: low back pain EXAMINATION/TECHNIQUE: X-RAY - XR Spine Lumbar 2 or 3 Views COMPARISON: No comparison. FINDINGS: 3 views of the lumbar spine. BONES: Normal anatomic alignment without evidence of fracture or subluxation. No concerning bony lesion or abnormal sclerosis to suggest lesion. DISCS/JOINTS: No significant degenerative change. SOFT TISSUES: Unremarkable. RAD/Lumbar Spine 2 or 3 Views IMPRESSION: Unremarkable lumbar spine. If there is persistent clinical concern for spine fracture and this is a trauma patient, recommend dedicated lumbar spine CT. Electronically Signed: Steve Prieto MD at 21:09 EDT ,
== END | disposition home or self-care (01) ==
LOC: RAD.FUTURE 14:51 → RAD 14:52
PROVIDERS: Referring Provider Nurse Practitioner Family; Visit Provider Nurse Practitioner Family
DX: M54.50 Low back pain, unspecified (principal)
CPT/HCPCS: 72072; 72100

== ENCOUNTER 2023-08-20 20:57 | Emergency (ER) | payer SELFPAY ==
[2023-08-20 20:59] VITALS: BP 121/50; PULSE 65; RESP 16; TEMP 36.2; O2SAT 97; BMI 35.4
--- NOTE | 2023-08-20 21:35 | CT_ITS ---
INDICATION: seizure, headache EXAMINATION: CT BRAIN WITHOUT CONTRAST, CTA HEAD, AND CTA NECK TECHNIQUE: Noncontrast axial images were obtained of the brain. Subsequently, routine carotid CT angiogram protocol was performed without and with IV contrast. In addition, images were obtained of the [place] of [place]. NASCET criteria using the distal ICAs for comparison were used for evaluation of stenoses. 3D reconstructions were reviewed. A radiation dose optimization technique was used for this scan. IV Contrast dosage and agent: 100 mL of Isovue-370 COMPARISON: Prior study dated: MRI performed 02/27/2021 FINDINGS: --CT BRAIN WITHOUT CONTRAST: BRAIN PARENCHYMA: No intra- or extra-axial hemorrhage. No evidence of acute infarct. No intracranial mass or mass effect. There is preservation of the tomlin/white matter interface. Posterior fossa structures are unremarkable. CSF SPACES: Appropriate for age. No hydrocephalus. Basal cisterns are patent. CALVARIUM, SKULL BASE, PARANASAL SINUSES AND MASTOID AIR CELLS: Clear. No discrete lytic or blastic abnormalities. ASPECTS Score for Acute Strokes: 10 --CTA NECK: AORTIC ARCH AND BRANCHES: Normal anatomy, patent. RIGHT CCA: No occlusion, significant stenosis or dissection. RIGHT ICA: No occlusion, significant stenosis or dissection. LEFT CCA: No occlusion, significant stenosis or dissection. LEFT ICA: No occlusion, significant stenosis or dissection. RIGHT VERTEBRAL ARTERY: No occlusion, significant stenosis or dissection. LEFT VERTEBRAL ARTERY: No occlusion, significant stenosis or dissection. NECK SOFT TISSUES: The lung apices show no acute abnormality. No cervical lymphadenopathy. No acute osseous abnormality. --CTA HEAD: --Anterior circulation: ICAs: No significant stenosis at the intracranial/visualized segments. ACAs: No significant stenosis at the visualized segments. ACOM: Present. MCAs: No significant stenosis at the visualized segments. --Posterior circulation: PCOMs: Patent bilaterally. operating room orderly: No significant stenosis at the visualized segments. BASILAR ARTERY: No significant stenosis. VERTEBRAL ARTERIES: No significant stenosis at the intradural/visualized segments. No evidence of intracranial aneurysm or vascular malformation. The dural venous sinuses are well opacified. CT/CTA Head AND Neck W/ Contrast IMPRESSION: Negative CT Brain, CTA Carotid, and CTA Brain. Electronically Signed: Titi Jordan MD at 22:40 EST ,
--- NOTE | 2023-08-20 21:37 | EDS_ITS ---
HPI History of Present Illness Chief Complaint: Seizure Detail of Chief Complaint: Seizure Informant: patient and spouse/S.O. Narrative Narrative: Patient presents to the emergency department after having a seizure this evening. Patient was at a bowling alley with friends and family. She had had an argument with her fianc?. She apparently had complained of a headache and went to the restroom and sat down. Patient then was found to be seizing with whole body tonic-clonic like activity and unresponsive. Fianc? states symptoms lasted about 5 minutes and then she started to wake up and then had another episode that lasted about 2 minutes. Patient has history of seizure last which was 3 years ago. Patient states she is never been on seizure medicine because seizures are typically stress related and induced. Patient denies recent illness. Fianc? states that she has been complaining of headaches daily for 2 years. Patient just feels tired. Patient states that headaches run the gamut and sometimes she has nausea and vomiting with them and sometimes bright lights bother her eyes but not always. [facility] Medical History Migraines Von willebrand disease, type 1 Home Medications melatonin 1 mg tablet 5 mg PO HS PRN sleep 10/28/22 [History Last Taken Unknown] Allergy/AdvReac Type Severity Reaction Status Date / Time hydrocodone bitartrate AdvReac Vomiting Verified 02/19/23 21:07 [From Vicodin] Surgical History History of arthroscopic knee surgery History of placement of ear tubes History of tonsillectomy and adenoidectomy Social History Smoking Status: Current every day smoker tobacco type: cigarettes and e- cigarettes ROS ROS ED Review of Systems ROS Unobtainable: other Constitutional Constitutional ED: Reports lethargy; Denies chills, fever(s), sweats or weight loss Eyes Eyes: Denies blurry vision, change in vision or diplopia ENT ENT ED: Denies rhinorrhea or sore throat Cardiovascular Cardiovascular: Denies chest pain, orthopnea or racing heartbeat Respiratory/Chest Respiratory/Chest: Denies cough, dyspnea, dyspnea on exertion, orthopnea or sputum Gastrointestinal Gastrointestinal: Denies abdominal pain, diarrhea, nausea or vomiting Genitourinary Genitourinary ED: Denies dysuria, hematuria or urinary frequency Musculoskeletal Musculoskeletal: Denies arthralgias, back pain, myalgias or neck pain Integumentary Denies abscess, Abrasions or rash Neurologic Neurologic: Reports other Details: Your ; Denies headache(s) or weakness Psychiatric Psychiatric: Denies anxiety, depression or suicidal thoughts Endocrine Endocrinology: Denies polydipsia, polyphagia or polyuria Hematologic/Lymphatic Hematologic/Lymphatic: Denies easy bleeding, easy bruising or lymphadenopathy Allergic/Immunologic Allergic/Immunologic ED: Denies mouth swelling, tongue swelling or urticaria EXAM Physical Exam Narrative Exam Narrative: Patient did not lose control of bowel or bladder. Const Vital Signs: 08/20/23 20:59 08/20/23 23:12 Temperature 97.1 F L Temperature Source Temporal Pulse Rate 65 57 L Respiratory Rate 16 20 H Blood Pressure 121/50 H 132/85 H Blood Pressure Mean 73 100 Pulse Ox 97 97 Oxygen Delivery Method Room Air Room Air Positive well nourished and well developed General Appearance ED: well developed and NAD HEENT Reports TM's clear and moist mucous membranes HEENT Narrative: No bite wounds noted to the tongue or buccal mucosa or lips. normocephalic and atraumatic; Negative for trauma or tenderness Tympanic Membrane ED: Yes TM's clear Eyes PERRL and EOMs intact bilaterally General Eye ED: Negative for pale conjunctiva or scleral icterus Neck no lymphadenopathy, supple and no JVD General: Negative for tenderness Chest Wall inspection of chest normal and palpation of chest normal Chest: Negative for tenderness Resp normal respiratory effort and clear to auscultation bilaterally Effort and Inspection: Negative for respiratory distress or pain with movement Auscultation: Negative for rhonchi, wheezes or diminished lung sounds Cardio regular rate, regular rhythm, S1 normal heart sound, S2 normal heart sound and no murmurs Peripheral Pulses: pulses 2+ throughout GI normal to inspection, nondistended, normoactive bowel sounds, soft to palpation, non-tender, non-distended and no masses Back/Spine no CVA tenderness and no thoracic nor lumbar tenderness Extremity normal to inspection General Extremety ED: Negative for edema General Extremity: Negative for edema Neuro oriented x3, CN's II-XII intact bilaterally, no sensory deficits noted and gait normal Sensorium / Orientation: awake, alert, oriented to person, oriented to place and oriented to time Motor Exam: strength 5/5 throughout and strength abnormal Psych mental status grossly normal Skin no rashes or lesions noted and no wounds MDM MDM MDM Narrative Medical decision making narrative: Months with history of headaches and anxiety related seizures. Today she had a seizure per significant other initially lasted 5 minutes and then another 1 lasted about 2 minutes. Patient did not lose control of bowel or bladder and she did not bite her tongue or oral mucosa. IV line established. Patient had CTA of head and neck which were normal. She describes several years long history of chronic headaches. She currently does not see a neurologist. Basic lab workup obtained showed normal WBC, 7.7 with hemoglobin 14.6 and platelet count of 282. Chemistries and remark well. LFTs were normal your normal. Patient will be medicated with Toradol and Reglan and Benadryl. Suspect her headache may be chronic migraine. At this point we will not treat for seizure as it is unclear if this is nonepileptic seizure versus true seizure. Will refer to neurology for follow-up. Lab Data Attestation: I reviewed the patient's lab results. Labs: Laboratory Results - last 24 hr 08/20/23 21:50 WBC 7.7 RBC 4.86 Hgb 14.6 Hct 42.1 MCV 86.6 MCH 30.0 MCHC 34.7 RDW Std Deviation 37.6 RDW Coeff of Nazia 11.9 Plt Count 282 MPV 9.6 Immature Gran % (Auto) 0.300 Neut % (Auto) 58.3 Lymph % (Auto) 32.7 [place] % (Auto) 7.2 Eos % (Auto) 0.8 Baso % (Auto) 0.7 Absolute Neuts (auto) 4.5 Absolute Lymphs (auto) 2.51 Nucleated RBC % 0 Sodium 140 Potassium 3.7 Chloride 111 H Carbon Dioxide 27.0 Anion Gap 2 L BUN 12 Creatinine 0.98 Estim Creat Clear Calc 73.14 Est GFR (MDRD) Af Amer 86 Est GFR (MDRD) Non-Af 71 BUN/Creatinine Ratio 12.3 Glucose 98 Calcium 8.8 Total Bilirubin 0.30 AST 9 L ALT 22 Alkaline Phosphatase 114 Total Protein 6.8 Albumin 3.8 Globulin 3.0 Albumin/Globulin Ratio 1.3 Urine Color Yellow Urine Clarity Clear Urine pH 6.5 Ur Specific Ponce 1.010 Urine Protein 15 H Urine Glucose (UA) Normal Urine Ketones Negative Urine Occult Blood 25 H Urine Nitrite Negative Urine Bilirubin Negative Urine Urobilinogen Normal Ur Leukocyte Esterase Negative Urine RBC 0-5 SEEN Urine WBC 0 SEEN Ur Squamous Epith Cells 0-5 SEEN Urine Bacteria 0 SEEN Urine Mucus 0 SEEN Radiography Diagnostic Testing: Clinical Impression(s) from Imaging Studies Head/Neck CTA 08/20/23 21:35 IMPRESSION: Negative CT Brain, CTA Carotid, and CTA Brain. Electronically Signed: Titi Jordan MD at 22:40 EST , Discharge Plan Triage Chief Complaint: Seizure ED Provider: Dominic Aguirre Dx/Rx/DC Orders Clinical Impression: Headache, Seizure Instructions: ED, Migraine (Classical), ED Seizure, Recurrent (Adult) Prescriptions: No Action melatonin 1 mg tablet 5 mg PO HS PRN (Reason: sleep) Primary Care Provider: [facility] Rodriguez Referrals: Kunal Catalan MD [Non-Staff -Ordering Privileges] [facility] - Disposition Disposition: Home, Self Care
[2023-08-20 21:59] LABS: Bacteria 0 SEEN /hpf (None Seen); Mucous, Urine 0 SEEN /hpf (<or=2+); White Blood Cells 0 SEEN /hpf (0-5)
[2023-08-20 22:00] LABS: Absolute Lymphocyte Count 2.51 X10^3/uL (0.83-4.51); Absolute Neutrophil Count 4.5 X10^3/uL (2.0-7.7); Basophil# 0.05 X10^3/uL; Basophil% 0.7 % (0-1); Color, Urine Yellow (Yellow); Eosinophil# 0.06 X10^3/uL; Eosinophils% 0.8 % (0-5); Glucose, Dipstick Normal (Normal); Hematocrit 42.1 % (37-47); Hemoglobin 14.6 g/dL (12.0-15.0); Ketone-Dipstick Negative (Negative); Leukocyte Esterase-Dipstick Negative /ul (Negative); Lymphocyte # 2.51 X10^3/ul (0.83-4.51); Lymphocyte % 32.7 % (19-41); Mean Corp Hgb Conc 34.7 g/dL (32-36); Mean Corpuscular Volume 86.6 fL (81-99); Mean Platelet Vol. 9.6 fl (6.2-12.0); Monocyte# 0.55 X10^3/uL; Monocyte% 7.2 % (0-10); NRBC Flagged by Analyzer 0 % (0-5); Neutrophil # 4.48 X10^3/uL (2.7-7.7); Neutrophil % 58.3 % (47-70); Nitrite-Dipstick Negative (Negative); Occult Blood-Urine 25 /ul (Negative); Platelet Count 282 K/mm3 (150-450); Protein-Dipstick 15 mg/dl (Negative); RBC Distribution Width CV 11.9 % (11.6-14.6); RBC Distribution Width SD 37.6 fl (35.1-43.9); Red Blood Count 4.86 M/mm3 (4.2-5.4); Urine Bilirubin Dipstick Negative (Negative); Urine Clarity Clear (Clear); Urine Urobilinogen Normal (Normal); Urine pH 6.5 (5.0 - 8.0); White Blood Count 7.7 K/mm3 (4.4-11.0)
[2023-08-20 22:06] LABS: Red Blood Cells-Urine 0-5 SEEN /hpf (0-5); Squamous Epithelial Cells - UA 0-5 SEEN /hpf (5-10)
[2023-08-20 22:16] LABS: ALB/GLOB Ratio 1.3 RATIO (0.9-2.4); AST(SGOT) 9 U/L (15-37); Alanine Aminotransfer ALT/SGPT 22 U/L (13-56); Albumin, Serum 3.8 g/dL (3.2-5.0); Alkaline Phosphatase 114 U/L (45-117); Anion Gap 2 (5-15); BUN 12 mg/dL (7-18); BUN/Creat Ratio 12.3 RATIO (10-20); Calcium,Total 8.8 mg/dL (8.5-10.1); Chloride 111 mmol/L (98-107); Creatinine, Serum 0.98 mg/dL (0.55-1.02); EST Glomerular Filtration Rate 71 mL/min (>60); Est Glom Filt Rate - Afr Amer 86 mL/min (>60); Estimated Creatinine Clearance 73.14 ml/min; Glucose 98 mg/dL (74-106); Potassium 3.7 mmol/L (3.5-5.1); Protein, Total 6.8 g/dL (6.4-8.2); Sodium Level 140 mmol/L (136-145)
[2023-08-20] MEDS: Metoclopramide 10 MG/2 ML Vial IV (23:07)
[2023-08-20] MEDS: Ketorolac 30 MG/ML Syringe IV (23:10)
[2023-08-20] MEDS: DiphenhydrAMINE 50 MG/ML Syringe 25 MG IV (23:10)
[2023-08-20 23:12] VITALS: BP 132/85; PULSE 57; RESP 20; O2SAT 97
[2023-08-20 23:42] VITALS: BP 132/85; PULSE 61; RESP 15; O2SAT 98
== END 2023-08-20 23:43 | disposition home or self-care (01) ==
PROVIDERS: Emergency Provider Emergency Medicine; Visit Provider Emergency Medicine
DX: R51.9 Headache, unspecified (principal); R56.9 Unspecified convulsions; F17.210 Nicotine dependence, cigarettes, uncomplicated; F17.290 Nicotine dependence, other tobacco product, uncomplicated
CPT/HCPCS: 70496; 70498; 80053; 81001; 85025; 96374; 96375; 99285; Q9967; A4216

== ENCOUNTER → 2023-09-15 | Outpatient (CLI) | payer MEDICAID, SELFPAY ==
[2023-09-15 12:31] LABS: Absolute Lymphocyte Count 1.86 X10^3/uL (0.83-4.51); Absolute Neutrophil Count 2.9 X10^3/uL (2.0-7.7); Basophil# 0.03 X10^3/uL; Basophil% 0.6 % (0-1); Eosinophil# 0.08 X10^3/uL; Eosinophils% 1.5 % (0-5); Hematocrit 43.9 % (37-47); Hemoglobin 15.2 g/dL (12.0-15.0); Lymphocyte # 1.86 X10^3/ul (0.83-4.51); Mean Corp Hgb Conc 34.6 g/dL (32-36); Mean Corpuscular Hgb 30.2 pg (27.0-32.0); Mean Corpuscular Volume 87.3 fL (81-99); Mean Platelet Vol. 10.1 fl (6.2-12.0); Monocyte# 0.42 X10^3/uL; Monocyte% 7.9 % (0-10); NRBC Flagged by Analyzer 0 % (0-5); Neutrophil # 2.91 X10^3/uL (2.7-7.7); Neutrophil % 54.8 % (47-70); Platelet Count 257 K/mm3 (150-450); RBC Distribution Width CV 11.4 % (11.6-14.6); RBC Distribution Width SD 36.6 fl (35.1-43.9); Red Blood Count 5.03 M/mm3 (4.2-5.4); White Blood Count 5.3 K/mm3 (4.4-11.0)
--- OUTSIDE RECORDS SUMMARY | 2023-09-15 13:03 | XMS RPT_ITS | CCD ---
Author Name Unknown Address [address] [place] [address] Organization [facility] Care Team Providers Care Director Of Cardiac Cath Lab Name Role Phone Rodriguez Thomas Unavailable Unavailable Rodriguez Thomas Unavailable Unavailable James Healy Unavailable Unavailable James Healy Unavailable Unavailable [facility] Unavailable Unavailable Cr Lassiter Unavailable Unavailable PROVIDER, UNKNOWN Unavailable Unavailable PROVIDER, UNKNOWN Unavailable Unavailable KESHAV QUINONES Primary Care Physician Keshav Gomez CNP K Unavailable [phone] DIANA VEE Attending Unavailable KESHAV QUINONES Primary Care Unavailab MICHI Brown Attending Unavailable ALYSSA BROCK [facility] Primary Care Provider Un available PAUL SARMIENTO Referring Unavailable MADELEINE KAPOOR Referring Unavailable Allergies Allergy Classification Reported Allergen(s) Allergy Type Date of Onset Reaction(s) Facility (4 sources) Acetaminophen / HYDROcodone; Translations: [acetaminophen-hyd rocodone] Drug Allergy 6 Vomiting [facility] Work Phone: (5 sources) Aspirin; Translations: [aspirin] Drug Allergy 6 Other: See Comments [facility] Work Phone: (5 sources) Ibuprofen; Translations: [ibuprofen] Drug Allergy 6 Other: See Comments [facility] Work Phone: Medications Current Medications Medication Drug Class(es) Dates Sig (Normalized) Sig (Original) Excedrin Mild Headache (1 source) Central Nervous System Stimulant, Methylxanthine Start: 05-14-2017 Excedrin Mild Headache Dose = 2 tab(s), Oral, 0 Refill(s) Start Date: 05/14/17 Status: Ordered busPIRone hydrochloride 10 mg oral tablet (1 source) Start: 01-16-2022 busPIRone 10 mg oral tablet Dose : 10 mg = 1 tab(s), Oral, TID, 0 Refill(s) Start Date: 01/16/22 Status: Ordered fluticasone propionate 0.05 mg/actuat metered dose nasal spray (4 sources) Corticosteroid Start: 01-16-2022 End: 01-23-2022 take 1 dose nasal route twice daily Flonase 50 mcg/inh nasal spray Dose = 2 spray(s), Nostril, each, BID, # 1 EA, 0 Refill(s), Sinusitis Viral upper respiratory tract infection Start Date: 01/16/22 Stop Date: 01/23/22 Status: Ordered Completed/Discontinued Medications Medication Drug Class(es) Dates Sig (Normalized) Sig (Original) baclofen 10 mg oral tablet (1 source) gamma-Aminobutyri c Acid-ergic Agonist Start: 04-18-2021 End: 10-03-2022 take 1 tablet by mouth every eight hours as needed baclofen (LIORESAL) 10 mg tablet Take 1 tablet by mouth three times daily as needed. 45 tablet 2 04/18/2021 10/03/2022 Discontinued Problems Active Problems Problem Classification Problem Date Documented Da te Episodic/Chronic Coagulation and hemorrhagic disorders (4 sources) Blood coagulation disorder, categorized by value of screening test; Translations: [von Willebrand disorder] Onset: 01-06-2016 04-20-2014 Chronic Past or Other Problems Problem Classification Problem Date Documented Da te Episodic/Chronic Epilepsy; convulsions (3 sources) Seizure; Translations: [Unspecified convulsions] Onset: 05-07-2021 05-07-2021 Episodic Results Test Name Value Interpretation Reference Range Facil ity Vital Signs Date Time Vital Sign Value Performing Clinician Facility 07-27-2023 14:19-0500 Body temperature 98.01 [degF] Madeleine Kapoor APRN.DRYCLEANER Work Phone: [facility] 07-27-2023 14:19-0500 Body weight 93.08 kg Madeleine Kapoor MISSION COORDINATOR.DRYCLEANER Work Phone: [facility] 07-27-2023 14:19-0500 Diastolic blood pressure 60 mm[Hg] Madeleine Kapoor MISSION COORDINATOR.DRYCLEANER Work Phone: [facility] 07-27-2023 14:19-0500 Heart rate 78 /min Madeleine Kapoor MISSION COORDINATOR.DRYCLEANER Work Phone: [facility] 07-27-2023 14:19-0500 Respiratory rate 16 /min Madeleine Kapoor MISSION COORDINATOR.DRYCLEANER Work Phone: [facility] 07-27-2023 14:19-0500 SaO2% (BldA) [Mass fraction] 99 % Madeleine Kapoor MISSION COORDINATOR.DRYCLEANER Work Phone: [facility] 07-27-2023 14:19-0500 Systolic blood pressure 110 mm[Hg] Madeleine Aquinosushant MISSION COORDINATOR.DRYCLEANER Work Phone: [facility] 06-23-2023 14:32-0400 Body temperature 98.4 [degF] Paul Sarmiento MISSION COORDINATOR.DRYCLEANER Work Phone: [facility] 06-23-2023 14:32-0400 Body weight 91.81 kg Paul Sarmiento MISSION COORDINATOR.DRYCLEANER Work Phone: [facility] 06-23-2023 14:32-0400 Diastolic blood pressure 78 mm[Hg] Paul Sarmiento MISSION COORDINATOR.DRYCLEANER Work Phone: [facility] 06-23-2023 14:32-0400 Heart rate 75 /min Paul Sarmiento MISSION COORDINATOR.DRYCLEANER Work Phone: [facility] 06-23-2023 14:32-0400 Respiratory rate 21 /min Paul Sarmiento MISSION COORDINATOR.DRYCLEANER Work Phone: [facility] 06-23-2023 14:32-0400 SaO2% (BldA) [Mass fraction] 98 % Paul Sarmiento MISSION COORDINATOR.DRYCLEANER Work Phone: [facility] 06-23-2023 14:32-0400 Systolic blood pressure 118 mm[Hg] Paul Sarmiento MISSION COORDINATOR.DRYCLEANER Work Phone: [facility] 01-16-2022 08:17-0400 Body height [address] VITALY PEREZ MD [facility] 01-16-2022 08:17-0400 Body temperature 98.6 [degF] DR VITALY PEREZ MD [facility] 01-16-2022 08:17-0400 Body weight 88.[address] VITALY PEREZ MD [facility] 01-16-2022 08:17-0400 Diastolic blood pressure 85 mm[Hg] DR VITALY PEREZ MD [facility] 01-16-2022 08:17-0400 Heart rate 85 /min DR VITALY PEREZ MD [facility] 01-16-2022 08:17-0400 Respiratory rate 18 /min DR VITALY PEREZ MD [facility] 01-16-2022 08:17-0400 Systolic blood pressure 131 mm[Hg] DR VITALY PEREZ MD [facility] Encounters Encounter Date Encounter Type Care Provider Facility Start: 07-27-2023 End: 07-27-2023 ambulatory MADELEINE KAPOOR Facility:[facility] Start: 07-27-2023 End: 07-27-2023 Office outpatient visit 15 minutes Madeleine Kapoor MISSION COORDINATOR.DRYCLEANER Work Phone: [facility] Procedures Date Procedure Procedure Detail Performing Clinician Knee region structur e (body structure) DR VITALY PEREZ MD Tonsillectomy and adenoidectomy DR VITALY PEREZ MD Tympanostomy DR VITALY DUNCAN MD Plan of Treatment Date Care Activity Detail Author Start: 09-28-2025 PAP TESTING PAP TESTING [facility] Start: 05-14-2023 Influenza vaccination Influenza Vacc ine (#1) [facility] Start: 09-13-2022 DEPRESSION ASSESSMENT DEPRESSION ASS ESSMENT [facility] Start: 05-14-2022 Influenza vaccination INFLUENZA (#1) [facility] Start: 02-19-2018 Urine microalbumin profile [facility] Start: 2000 PNEUMOCOCCAL (1 - PCV) PNEUMOCOCCAL (1 - PCV) [facility] Start: 2000 Pneumococcal vaccination Pneum ococcal Vaccine (1 - PCV) [facility] Start: 1994 COVID-19 VACCINE (#1) COVID-19 VACCI NE (#1) [facility] Immunizations Immunization Date Immunization Notes Care Provider Fa laurie 08-30-2012 influenza, seasonal, injectable Rossy Tyler MD Work Phone: [facility] 08-30-2012 influenza virus vacc ine, unspecified formulation Paul Sarmiento MISSION COORDINATOR.DRYCLEANER Work Phone: [facility] 06-26-2011 influenza, seasonal, injectable Rossy Tyler MD Work Phone: [facility] 07-24-2008 influenza, seasonal, injectable Rossy Tyler MD Work Phone: [facility] 02-20-2008 hepatitis A vaccine, unspecified formulation Rossy Tyler MD Work Phone: [facility] 02-20-2008 hepatitis B vaccine, adult dosage Rossy Tyler MD Work Phone: [facility] 02-20-2008 human papilloma viru s vaccine, quadrivalent Rossy Tyler MD Work Phone: [facility] 02-20-2008 tetanus toxoid, redu sola diphtheria toxoid, and acellular pertussis vaccine, adsorbed Rossy Tyler MD Work Phone: [facility] 09-28-2007 hepatitis B vaccine, adult dosage Rossy Tyler MD Work Phone: [facility] 09-28-2007 human papilloma viru s vaccine, quadrivalent Rossy Tyler MD Work Phone: [facility] 08-15-2007 hepatitis A vaccine, unspecified formulation Rossy Tyler MD Work Phone: [facility] 08-15-2007 hepatitis B vaccine, adult dosage Rossy Tyler MD Work Phone: [facility] 08-15-2007 influenza, seasonal, injectable Rossy Tyler MD Work Phone: [facility] 08-15-2007 meningococcal polysaccharide (groups A, C, Y and W-135) diphtheria toxoid conjugate vaccine (MCV4P) Rossy Tyler MD Work Phone: [facility] 07-28-2007 human papilloma viru s vaccine, quadrivalent Rossy Tyler MD Work Phone: [facility] 08-13-2005 influenza virus vacc ine, unspecified formulation Rossy Tyler MD Work Phone: [facility] Work Phone: 07-02-2005 Meningococcal, MCV4, unspecified conjugate formulation(groups A, C, Y and W-135) Rossy Tyler MD Work Phone: [facility] 07-02-2005 tetanus toxoid, redu sola diphtheria toxoid, and acellular pertussis vaccine, adsorbed Rossy Tyler MD Work Phone: [facility] 08-11-1999 varicella virus vaccine Nasir Tyler MD Work Phone: [facility] Work Phone: 02-26-1999 diphtheria, tetanus toxoids and acellular pertussis vaccine Rossy Tyler MD Work Phone: [facility] Work Phone: 02-26-1999 measles, mumps and rubella virus vaccine Rossy Tyler MD Work Phone: [facility] Work Phone: 02-26-1999 poliovirus vaccine, inactivated Rossy Tyler MD Work Phone: [facility] Work Phone: 06-08-1995 haemophilus influenz ae type b vaccine, HbOC conjugate Rossy Tyler MD Work Phone: [facility] Work Phone: 03-15-1995 measles, mumps and rubella virus vaccine Rossy Tyler MD Work Phone: [facility] Work Phone: 1994 diphtheria, tetanus toxoids and acellular pertussis vaccine Rossy Tyler MD Work Phone: [facility] Work Phone: 1994 haemophilus influenz ae type b vaccine, HbOC conjugate Rossy Tyler MD Work Phone: [facility] Work Phone: 1994 hepatitis B vaccine, pediatric or pediatric/adolescent dosage Rossy Tyler MD Work Phone: [facility] Work Phone: 1994 poliovirus vaccine, inactivated Rossy Tyler MD Work Phone: [facility] Work Phone: 1994 diphtheria, tetanus toxoids and acellular pertussis vaccine Rossy Tyler MD Work Phone: [facility] Work Phone: 1994 haemophilus influenz ae type b vaccine, HbOC conjugate Rossy Tyler MD Work Phone: [facility] Work Phone: 1994 poliovirus vaccine, inactivated Rossy Tyler MD Work Phone: [facility] Work Phone: 1994 diphtheria, tetanus toxoids and acellular pertussis vaccine Rossy Tyler MD Work Phone: [facility] Work Phone: 1994 haemophilus influenz ae type b vaccine, HbOC conjugate Rossy Tyler MD Work Phone: [facility] Work Phone: 1994 hepatitis B vaccine, pediatric or pediatric/adolescent dosage Rossy Tyler MD Work Phone: [facility] Work Phone: 1994 poliovirus vaccine, inactivated Rossy Tyler MD Work Phone: [facility] Work Phone: 1994 hepatitis B vaccine, pediatric or pediatric/adolescent dosage Rossy Tyler MD Work Phone: [facility] Work Phone: Payers Date Payer Category Payer Self-pay 2022 Unknown [id number] 2020 Medicaid 2017 Unknown 1994 Unknown [id number] 1994 Unknown [id number] Unknown [id number] Social History Date Type Detail Facility Start: 02-11-2021 Tobacco smoking status Light t obacco smoker (finding) [facility] Sex Assigned At Sex [facility] Start: 04-18-2021 End: 06-23-2023 Tobacco smoking status NHIS Smokes tobacco daily [facility] History of tobacco use Cigarette Smoker [facility] Start: 04-18-2021 End: 06-23-2023 Tobacco use and exposure Smokeless tobacco non-user [facility] Start: 11-20-2021 End: 07-27-2023 Alcohol intake Current non-drinker of alcohol (finding) [facility] Start: 01-06-2016 Alcohol Comment quit alcohol at age 14. [facility] Start: 1995 Sex Assigned At Female [facility] Start: 04-18-2021 End: 06-23-2023 History of Social function [facility] Start: 04-18-2021 End: 06-23-2023 Tobacco use panel [facility] PHQ-2 Score 0 [facility] Start: 10-02-2022 Gender identity Identifies as female gender (finding) [facility] Start: 10-02-2022 Sexual orientation Homosexual (findi ng) [facility] Functional Status Date Assessment Result Facility 01-16-2022 Functional Status Sanjuanita neville [facility] Mental Status Date Assessment Result Facility 01-16-2022 Mental Status Sanjuanita Elliottit al [facility] Clinical Notes 01-16-2022 to 07-27-2023 Madeleine Kapoor, [facility] - 07/27/2023 2:31 PM ESTPatient InstructionsPaul Sarmiento APRN.DRYCLEANER - 06/23/2023 2:36 PM EDTTelephone Encounter - Rossy Tyler MD - 10/03/2022 8:37 AM EST Note Date & Type Note Facility 07-27-2023 Note HNO ID: [id number] Author: Juana Mcrae RT(R) Service: Radiology Author Type: Technologist Type: Progress Notes Filed: 07/27/2023 3:10 PM Note Text: Radiology Service Progress Note PATIENT NAME: Nai Gómez DATE OF SERVICE: July 27, 2023 TIME: 3:02 PM PATIENT IDENTITY VERIFICATION COMPLETED USING TWO (2) IDENTIFIERS: Name and Date of confirmed by patient verbally. FALL SCREENING: Has the patient had 2 falls in the last year or 1 fall with injury or currently using an Ambulatory Assistive Device (Walker, Cane, Wheelchair, Crutches, etc.)? No PATIENT GENDER DATA: Female. status: : No status: NO. PATIENT RELEVANT IMPLANT DATA REVIEWED: Not Applicable RADIOLOGY DEPARTMENT: General X-ray: Exam(s) Completed: Upper Extremity X-Ray(s): Humerus, left PERIPHERAL IV DATA: Not applicable SIGNED BY: RT Fredy(R) July 27, 2023 3:02 PM [facility] 07-27-2023 Note HNO ID: [id number] Author: Madeleine Kapoor APRN.DRYCLEANER Service: ? Author Type: Nurse Practitioner Type: Progress Notes Filed: 07/27/2023 3:29 PM Note Text: Subjective HPI Nontoxic-appearing female presents urgent care chief complaint left bicep pain. Duration of symptoms 2 weeks. Associated symptoms left bicep discomfort. Has been present for about 2 weeks. Has not used any OTC medications. Rates pain 3 out of 10. States work has been a little more difficult due to discomfort. 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 No numbness no tingling. No decrease sensation currently. No fractures or surgeries in the past. Denies any fever body aches chills productive cough chest pain shortness of breath pleuritic pain hemoptysis nausea vomiting abdominal pain change in bowel or bladder habits. Past medical history prescription medication use and allergies reviewed. [id number]. .Patient presents with: Arm Pain: Left bicep pain for 2weeks. PAST MEDICAL HISTORY Diagnosis Date Family history of seizure disorder cousin with seizures since childhood. 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 Migraine 2015 neurologist. Unspecified asthma(493.90) Von Willebrand disease, type I (HCC) PAST SURGICAL HISTORY Procedure Laterality Date KNEE ARTHROSCOPY Bilateral 2 knee scopes on both knees. PAST SURGICAL HISTORY OF T and A / BMT ALLERGIES Aspirin, Hydrocodone-Acetaminophen, Motrin [Ibuprofen], Nsaids (Non-Steroidal Anti-Inflammatory Drug), and Tegretol [Carbamazepine] MEDICATIONS cariprazine (VRAYLAR) 1.5 mg capsule 1.5 mg. Melatonin 5 mg cap TAKE 1 CAPSULE BY MOUTH AT NIGHT NEEDED quetiapine fumarate (SEROQUEL ORAL) Take by mouth. desmopressin (DDAVP) 10 mcg/spray (0.1 mL) spry Use 2 Sprays in the nose every 12 hours as needed. fluticasone (FLONASE) 50 mcg/actuation nasal spray FAMILY HISTORY Problem Relation Age of Onset Hypertension Paternal Grandmother Hypertension Paternal Grandfather Headache Mother other (HIV) Mother Asthma Maternal Grandmother Breast Cancer Maternal Grandmother Diabetes Maternal Grandmother Heart Paternal Uncle Social History Tobacco Use Smoking status: Every Day Types: Cigarettes Smokeless tobacco: Never Substance Use Topics Alcohol use: No Comment: quit alcohol at age 14. Drug use: No BP 110/60 Pulse 78 Temp 36.7 ?C (98 ?F) Resp 16 Wt 93.1 kg (205 lb 3.2 oz) LMP 07/05/2006 SpO2 99% BMI 36.13 kg/m? Review of Systems Constitutional: Negative for chills, fever and malaise/fatigue. HENT: Negative for congestion, ear discharge, ear pain, sinus pain and sore throat. Eyes: Negative for blurred vision, pain, discharge and redness. Respiratory: Negative for cough, hemoptysis, sputum production, shortness of breath, wheezing and stridor. Cardiovascular: Negative for chest pain. Gastrointestinal: Negative for abdominal pain, diarrhea, nausea and vomiting. Musculoskeletal: Negative for joint pain and myalgias. Skin: Negative for itching and rash. Neurological: Negative for dizziness and headaches. Objective Physical Exam Constitutional: General: She is not in acute distress. Appearance: She is not toxic-appearing. HENT: Head: Normocephalic. Nose: Nose normal. Eyes: Pupils: Pupils are equal, round, and reactive to light. Cardiovascular: Rate and Rhythm: Normal rate. Pulmonary: Effort: Pulmonary effort is normal. No respiratory distress. Musculoskeletal: Left shoulder: Normal. Left upper arm: Normal. Left elbow: Normal. Cervical back: Normal range of motion. Comments: No deformities noted. No weakness noted. Neurovascular intact. No erythema edema. Skin: General: Skin is warm and dry. Neurological: General: No focal deficit present. Mental Status: She is alert. ASSESSMENT/PLAN: 1. Pain of left upper extremity - ICD9: 729.5, ICD10: - XR HUMERUS 2V AP/LAT LEFT IMPRESSION: No radiographic evidence of acute osseous abnormality No abnormal findings noted on x-ray. Treat as an overuse injury. Supportive therapies discussed. Follow-up with PCP 5 to 7 days reevaluation. Patient was educated on supportive therapies. Patient was instructed to immediately proceed to emergency room for any new, worsening, or symptoms lasting longer than anticipated. The patient's clinical presentation is otherwise unremarkable at this time. Based on exam and clinical finding, the patient is stable for discharge. Plan of care was discussed with patient. Patient verbalizes understanding and agrees to plan of care. This note was generated using [employer] software. It may contain errors in wording, punctuation, or spelling. Madeleine Kapoor APRN.DRYCLEANER [facility] 07-27-2023 History of Presen t illness Narrative Subjective HPI Nontoxic-appearing female presents urgent care chief complaint left bicep pain. Duration of symptoms 2 weeks. Associated symptoms left bicep discomfort. Has been present for about 2 weeks. Has not used any OTC medications. Rates pain 3 out of 10. States work has been a little more difficult due to discomfort. 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 No numbness no tingling. No decrease sensation currently. No fractures or surgeries in the past. Denies any fever body aches chills productive cough chest pain shortness of breath pleuritic pain hemoptysis nausea vomiting abdominal pain change in bowel or bladder habits. Past medical history prescription medication use and allergies reviewed. [id number]-eyis-[id number]. .Patient presents with: Arm Pain: Left bicep pain for 2weeks. PAST MEDICAL HISTORY Diagnosis Date Family history of seizure disorder cousin with seizures since childhood. 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 Migraine 2015 neurologist. Unspecified asthma(493.90) Von Willebrand disease, type I (HCC) PAST SURGICAL HISTORY Procedure Laterality Date KNEE ARTHROSCOPY Bilateral 2 knee scopes on both knees. PAST SURGICAL HISTORY OF T and A / BMT ALLERGIES Aspirin, Hydrocodone-Acetaminophen, Motrin [Ibuprofen], Nsaids (Non-Steroidal Anti-Inflammatory Drug), and Tegretol [Carbamazepine] MEDICATIONS cariprazine (VRAYLAR) 1.5 mg capsule 1.5 mg. Melatonin 5 mg cap TAKE 1 CAPSULE BY MOUTH AT NIGHT NEEDED quetiapine fumarate (SEROQUEL ORAL) Take by mouth. desmopressin (DDAVP) 10 mcg/spray (0.1 mL) spry Use 2 Sprays in the nose every 12 hours as needed. fluticasone (FLONASE) 50 mcg/actuation nasal spray FAMILY HISTORY Problem Relation Age of Onset Hypertension Paternal Grandmother Hypertension Paternal Grandfather Headache Mother other (HIV) Mother Asthma Maternal Grandmother Breast Cancer Maternal Grandmother Diabetes Maternal Grandmother Heart Paternal Uncle Social History Tobacco Use Smoking status: Every Day Types: Cigarettes Smokeless tobacco: Never Substance Use Topics Alcohol use: No Comment: quit alcohol at age 14. Drug use: No BP 110/60 Pulse 78 Temp 36.7 C (98 F) Resp 16 Wt 93.1 kg (205 lb 3.2 oz) LMP 07/05/2006 SpO2 99% BMI 36.13 kg/m Review of Systems Constitutional: Negative for chills, fever and malaise/fatigue. HENT: Negative for congestion, ear discharge, ear pain, sinus pain and sore throat. Eyes: Negative for blurred vision, pain, discharge and redness. Respiratory: Negative for cough, hemoptysis, sputum production, shortness of breath, wheezing and stridor. Cardiovascular: Negative for chest pain. Gastrointestinal: Negative for abdominal pain, diarrhea, nausea and vomiting. Musculoskeletal: Negative for joint pain and myalgias. Skin: Negative for itching and rash. Neurological: Negative for dizziness and headaches. Objective Physical Exam Constitutional: General: She is not in acute distress. Appearance: She is not toxic-appearing. HENT: Head: Normocephalic. Nose: Nose normal. Eyes: Pupils: Pupils are equal, round, and reactive to light. Cardiovascular: Rate and Rhythm: Normal rate. Pulmonary: Effort: Pulmonary effort is normal. No respiratory distress. Musculoskeletal: Left shoulder: Normal. Left upper arm: Normal. Left elbow: Normal. Cervical back: Normal range of motion. Comments: No deformities noted. No weakness noted. Neurovascular intact. No erythema edema. Skin: General: Skin is warm and dry. Neurological: General: No focal deficit present. Mental Status: She is alert. ASSESSMENT/PLAN: 1. Pain of left upper extremity - ICD9: 729.5, ICD10: - XR HUMERUS 2V AP/LAT LEFT IMPRESSION: No radiographic evidence of acute osseous abnormality No abnormal findings noted on x-ray. Treat as an overuse injury. Supportive therapies discussed. Follow-up with PCP 5 to 7 days reevaluation. Patient was educated on supportive therapies. Patient was instructed to immediately proceed to emergency room for any new, worsening, or symptoms lasting longer than anticipated. The patient's clinical presentation is otherwise unremarkable at this time. Based on exam and clinical finding, the patient is stable for discharge. Plan of care was discussed with patient. Patient verbalizes understanding and agrees to plan of care. This note was generated using [employer] software. It may contain errors in wording, punctuation, or spelling. Madeleine Kapoor APRN.DRYCLEANER documented in this encounter [facility] 06-23-2023 Note HNO ID: [id number] Author: Juana Mcrae RT(R) Service: Radiology Author Type: Technologist Type: Progress Notes Filed: 06/23/2023 2:59 PM Note Text: Radiology Service Progress Note PATIENT NAME: Nai Gómez DATE OF SERVICE: June 23, 2023 TIME: 2:45 PM PATIENT IDENTITY VERIFICATION COMPLETED USING TWO (2) IDENTIFIERS: Name and Date of confirmed by patient verbally. FALL SCREENING: Has the patient had 2 falls in the last year or 1 fall with injury or currently using an Ambulatory Assistive Device (Walker, Cane, Wheelchair, Crutches, etc.)? No PATIENT GENDER DATA: Female. status: : No status: NO. PATIENT RELEVANT IMPLANT DATA REVIEWED: Not Applicable RADIOLOGY DEPARTMENT: General X-ray: Exam(s) Completed: Rib X-Ray: Right PERIPHERAL IV DATA: Not applicable SIGNED BY: RT Fredy(R) June 23, 2023 2:45 PM [facility] 06-23-2023 Note HNO ID: [id number] Author: Paul Sarmiento APRN.DRYCLEANER Service: ? Author Type: Nurse Practitioner Type: Progress Notes Filed: 06/23/2023 4:00 PM Note Text: This note was created using [employer]. Subjective Nai Gómez is a 28 year old female. Nai presents with back pain from an injury two hours ago- I was up on a lift 4 feet in the air and fell into the steering wheel while still up on the lift, It knocked the wind out of me Right mid back and Right rib pain 7/10 pain worse with taking deep breaths. History of VonWillebrands Type 1. No treatments or medications taken for this injury today. Denies shortness of breath, chest pains, Nausea, vomiting, changes in bowel or bladder or skin rashes. Review of Systems Constitutional: Negative. Respiratory: Negative. Cardiovascular: Negative. Gastrointestinal: Negative. Musculoskeletal: Positive for back pain (Right thoracic back pain and Right rib pain worse when taking a deep breath). Objective BP 118/78 Pulse 75 Temp 36.9 ?C (98.4 ?F) Resp 21 Wt 91.8 kg (202 lb 6.4 oz) LMP 07/05/2006 SpO2 98% BMI 35.64 kg/m? Physical Exam Constitutional: General: She is not in acute distress. Appearance: Normal appearance. She is not ill-appearing or toxic-appearing. Cardiovascular: Rate and Rhythm: Normal rate and regular rhythm. Pulses: Normal pulses. Heart sounds: Normal heart sounds. Pulmonary: Effort: Pulmonary effort is normal. No respiratory distress. Breath sounds: No wheezing. Chest: Chest wall: No tenderness. Musculoskeletal: Cervical back: Normal. Thoracic back: Signs of trauma (Reported falling from standing position to laying position while still up on a lift- yet fell onto the steering wheel on right side of back/ribs) and tenderness (Mid-thoracic tenderness extends to Right ribs to lateral aspect, worsens with deep breathing and palpation. No crepitus with deep breathing appreciated) present. No swelling, edema or deformity. Lumbar back: Normal. Back: Neurological: Mental Status: She is alert. Assessment and Plan 1. Traumatic injury of rib - XR RIBS/CHEST 3V AP RIB/OBLS/CXR RIGHT; Future 2. Back pain due to injury - XR RIBS/CHEST 3V AP RIB/OBLS/CXR RIGHT; Future -EDUCATION ON COUGHING AND DEEP BREATHING X 10 THREE TIMES DAILY Nai Verbalized understanding and agreement with plan of care. Will seek further treatment if any worsening of symptoms occurs. Paul Sarmiento APRN [facility] 06-23-2023 Instructions Paul Sarmiento APRN.[facility] - 06/23/2023 2:49 PM EDT Diaphragmatic Breathing Exercises 1. Sit in a comfortable position. 2. Take 3 deep cleansing breaths[address] 3[address] one hand on your abdomen and the other on your chest. 4. Try to breathe so that only your abdomen rises and falls. a. As you inhale, concentrate on your chest remaining relatively still while your abdomen rises. It may be helpful to imagine that your pants are too big and you need to push your abdomen out to hold them up. b. When exhaling, allow your stomach to fall in and the air to fully escape. 5. Take some deep breaths, concentrating on only moving your abdomen. Hold each breath for two seconds. 6. Return to regular breathing, continuing to breath so that only your abdomen moves. The CALM Reminder Chest: Breathing slower and deeper Arms: Shoulders sag Legs: Loose and flexible Mouth: Jaw dropsLOW BACK PAIN GENERAL INFORMATION: Low back pain is located in the small of the back. The pain may be related to sprained muscles or ligaments, to muscle spasms, or to herniation of a spinal disc. There are many possible causes of back pain, but the most common causes are gradual wear and tear, physical and emotional stress, and weak or tense muscles from lack of proper exercise. The pain can develop quickly or overnight and may be caused by unusual exertion such as moving furniture or heavy lifting. Low back pain can be severe, and sometimes you may be unable to move without pain. INSTRUCTIONS: 1. During the first 24 hours, apply ice packs to your back for 10-20 minutes 3 to 4 times a day. Put the ice in a plastic bag and place a towel between the bag of ice and your skin. After 24 hours, apply heat to your back with a heating pad set on low or a warm water bottle for 30 minutes every 3 to 4 hours. A gentle massage and warm showers may also be helpful. 2. Stay in bed for 1 to 2 days. Then begin normal activities as you can tolerate without causing pain. 3. Bend at the hips and knees; never bend from the waist only. Lift with your legs, not your back. 4. Sleep on a firm mattress or put a to 1 inch piece of plywood between the mattress and box springs. Do not use a waterbed because it does not support your back correctly. Sleep with a pillow under your knees or sleep on your side with your knees bent. 5. Wear low-heeled shoes. 6. If you are overweight, losing weight will help prevent another attack. 7. Begin a program of back exercises to prevent future episodes of pain. Walking, swimming, and bicycling are good exercise. Avoid exercises that put stress on the back, such as rowing and jogging. CONTACT YOUR DOCTOR OR RETURN TO THE ED IF: 1. You have shooting pains into your buttocks, groin, or legs. 2. You have difficulty urinating or lose control of bowel or bladder function. 3. You have numbness or weakness in your legs or feet. documented in this encounter [facility] 06-23-2023 History of Presen t illness Narrative Images from the original note were not included. This note was created using Streamweaver. Subjective Nai Gómez is a 28 year old female. Nai presents with back pain from an injury two hours ago- I was up on a lift 4 feet in the air and fell into the steering wheel while still up on the lift, It knocked the wind out of me Right mid back and Right rib pain 7/10 pain worse with taking deep breaths. History of VonWillebrands Type 1. No treatments or medications taken for this injury today. Denies shortness of breath, chest pains, Nausea, vomiting, changes in bowel or bladder or skin rashes. Review of Systems Constitutional: Negative. Respiratory: Negative. Cardiovascular: Negative. Gastrointestinal: Negative. Musculoskeletal: Positive for back pain (Right thoracic back pain and Right rib pain worse when taking a deep breath). Objective BP 118/78 Pulse 75 Temp 36.9 C (98.4 F) Resp 21 Wt 91.8 kg (202 lb 6.4 oz) LMP 07/05/2006 SpO2 98% BMI 35.64 kg/m Physical Exam Constitutional: General: She is not in acute distress. Appearance: Normal appearance. She is not ill-appearing or toxic-appearing. Cardiovascular: Rate and Rhythm: Normal rate and regular rhythm. Pulses: Normal pulses. Heart sounds: Normal heart sounds. Pulmonary: Effort: Pulmonary effort is normal. No respiratory distress. Breath sounds: No wheezing. Chest: Chest wall: No tenderness. Musculoskeletal: Cervical back: Normal. Thoracic back: Signs of trauma (Reported falling from standing position to laying position while still up on a lift- yet fell onto the steering wheel on right side of back/ribs) and tenderness (Mid-thoracic tenderness extends to Right ribs to lateral aspect, worsens with deep breathing and palpation. No crepitus with deep breathing appreciated) present. No swelling, edema or deformity. Lumbar back: Normal. Back: Neurological: Mental Status: She is alert. Assessment and Plan 1. Traumatic injury of rib - XR RIBS/CHEST 3V AP RIB/OBLS/CXR RIGHT; Future 2. Back pain due to injury - XR RIBS/CHEST 3V AP RIB/OBLS/CXR RIGHT; Future -EDUCATION ON COUGHING AND DEEP BREATHING X 10 THREE TIMES DAILY Nai Verbalized understanding and agreement with plan of care. Will seek further treatment if any worsening of symptoms occurs. Paul Sarmiento APRN DRYCLEANER documented in this encounter [facility] 10-03-2022 Miscellaneous Notes Patient's request for medication is as follows Requested Prescriptions Signed Prescriptions Disp Refills desmopressin (DDAVP) 10 mcg/spray (0.1 mL) spry 5 mL 5 Sig: Use 2 Sprays in the nose every 12 hours as needed. Authorizing Provider: ROSSY TYLER Order entered - please phone pharmacy and notify patient. Rossy Tyler MD documented in this encounter [facility] 01-16-2022 Hospital Discharg e instructions Patient Education 01/16/2022 08:34:36 URI, Viral, No Abx (Adult) Viral Upper Respiratory Illness (Adult) You have a viral upper respiratory illness (URI), which is another term for the common cold. This illness is contagious during the first few days. It is spread through the air by coughing and sneezing. It may also be spread by direct contact (touching the sick person and then touching your own eyes, nose, or mouth). Frequent handwashing will decrease risk of spread. Most viral illnesses go away within 7 to 10 days with rest and simple home remedies. Sometimes the illness may last for several weeks. Antibiotics will not kill a virus, and they are generally not prescribed for this condition. Home care If symptoms are severe, rest at home for the first 2 to 3 days. When you resume activity, don't let yourself get too tired. Don't smoke. If you need help stopping, talk with your healthcare provider. Avoid being exposed to cigarette smoke (yours or others ). You may use acetaminophen or ibuprofen to control pain and fever, unless another medicine was prescribed. If you have chronic liver or kidney disease, have ever had a stomach ulcer or gastrointestinal bleeding, or are taking blood-thinning medicines, talk with your healthcare provider before using these medicines. Aspirin should never be given to anyone under 18 years of age who is ill with a viral infection or fever. It may cause severe liver or brain damage. Your appetite may be poor, so a light diet is fine. Stay well hydrated by drinking 6 to 8 glasses of fluids per day (water, soft drinks, juices, tea, or soup). Extra fluids will help loosen secretions in the nose and lungs. Qunn-asa-dhkjzbv cold medicines will not shorten the length of time you re sick, but they may be helpful for the following symptoms: cough, sore throat, and nasal and sinus congestion. If you take prescription medicines, ask your healthcare provider or pharmacist which lval-baq-lxzvjpq medicines are safe to use. (Note: Don't use decongestants if you have high blood pressure.) Follow-up care Follow up with your healthcare provider, or as advised. When to seek medical advice Call your healthcare provider right away if any of these occur: Cough with lots of colored sputum (mucus) Severe headache; face, neck, or ear pain Difficulty swallowing due to throat pain Fever of 100.4 F (38 C) or higher, or as directed by your healthcare provider Call 911 Call 911 if any of these occur: Chest pain, shortness of breath, wheezing, or difficulty breathing Coughing up blood Very severe pain with swallowing, especially if it goes along with a muffled voice [id number] [employer]. [address] [place] [address]. All rights reserved. This information is not intended as a substitute for professional medical care. Always follow your healthcare professional's instructions. 01/16/2022 08:34:20 Sinusitis (No Antibiotics) Sinusitis (No Antibiotics) The sinuses are air-filled spaces within the bones of the face. They connect to the inside of the nose. Sinusitis is an inflammation of the tissue that lines the sinuses. Sinusitis can occur during a cold. It can also happen due to allergies to pollens and other particles in the air. It can cause symptoms such as sinus congestion, headache, sore throat, facial swelling, and a feeling of fullness. It may also cause a low-grade fever. Your sinusitis does not include an infection with bacteria. Because of this, antibiotics are not used to treat this problem. Home care Drink plenty of water, hot tea, and other liquids. This may help thin nasal mucus. It also may help your sinuses drain fluids. Heat may help soothe painful areas of your face. Use a towel soaked in hot water. Or, welder pipe making the shower and direct the warm spray onto your face. Using a vaporizer along with a menthol rub at night may also help soothe symptoms. An expectorant with guaifenesin may help thin nasal mucus and help your sinuses drain fluids. You can use an nihd-nir-pegonnl decongestant, unless a similar medicine was prescribed to you. Nasal sprays work the fastest. Use one that contains phenylephrine or oxymetazoline. First blow your nose gently. Then use the spray. Do not use these medicines more often than directed on the label. If you do, your symptoms may get worse. You may also take pills that contain pseudoephedrine. Don t use products that combine multiple medicines. This is because side effects may be increased. Read all medicine labels. You can also ask the pharmacist for help. (People with high blood pressure should not use decongestants. They can raise blood pressure.) Mzdq-agy-irpxgtm antihistamines may help if allergies contributed to your sinusitis. Use acetaminophen or ibuprofen to control pain, unless another pain medicine was prescribed to you. If you have chronic liver or kidney disease or ever had a stomach ulcer, talk with your healthcare provider before using these medicines. (Aspirin should never be taken by anyone under age 18 who is ill with a fever. It may cause severe liver damage.) Use nasal rinses or irrigation as instructed by your healthcare provider. Don't smoke. This can make symptoms worse. Follow-up care Follow up with your healthcare provider or our staff if you are not better in 1 week. When to seek medical advice Call your healthcare provider if any of these occur: Green or yellow fluid draining from your nose or into your throat Facial pain or headache that gets worse Stiff neck Unusual drowsiness or confusion Swelling of your forehead or eyelids Vision problems, such as blurred or double vision Fever of 100.4 F (38 C) or higher, or as directed by your healthcare provider Seizure Breathing problems Symptoms that don't go away in 10 days [id number] [employer] [place] [address]. All rights reserved. This information is not intended as a substitute for professional medical care. Always follow your healthcare professional's instructions. Follow Up Care 01/16/2022 08:08:54 With:DIANA JOHNSTON Address: [address] [facility] [place] [address]- Business (1) When:2-4 days Comments:Return to ED if symptoms worsen With:Call Physician Referral Address:Unknown When:2-4 days [facility] Evaluation + Plan note No data available for this section [facility] Pain of left upper extremity- Primary [facility] No data available for this section [facility] Reason for referral (narrative)* Diagnostic Procedure Only (Routine) - Closed Specialty Diagnoses / Procedures Referred By Contac t Referred To Contact XR IMAGING Diagnoses Traumatic injury of rib Back pain due to injury Procedures XR RIBS/CHEST 3V AP RIB/OBLS/CXR RIGHT RADEX RIBS UNI W/POSTEROANT CH MINIMUM 3 VIEWS Paul Sarmiento APRN.DRYCLEANER [address] [place] [address] Xr Imaging [id number] Referral ID Status Reason Start Date Expiration Date V isits Requested Visits Authorized [id number] Closed Auto-Generate d Referral 06/23/2023 07/22/2024 1 1 [facility] for referral (narrative)* Diagnostic Procedure Only (Urgent) - Closed Specialty Diagnoses / Procedures Referred By Contac t Referred To Contact XR IMAGING Diagnoses Pain of left upper extremity Procedures XR HUMERUS 2V AP/LAT LEFT RADEX HUMERUS MINIMUM 2 VIEWS Madeleine Kapoor APRN.DRYCLEANER [address] [place] [address] [place] [id number] Referral ID Status Reason Start Date Expiration Date V isits Requested Visits Authorized [id number] Closed Auto-Generate d Referral 07/27/2023 08/25/2024 1 1 [facility] Summary Purpose Family History No Family History Records FoundNo Family History Records FoundNo Family History Records FoundNo Family History Records FoundNo Family History Records FoundNo Family History Records FoundNo Family History Records Found Advance Directives No Advanced Directives Records FoundNo Advanced Directives Records FoundNo Advanced Directives Records FoundNo Advanced Directives Records FoundNo Advanced Directives Records FoundNo Advanced Directives Records FoundNo Advanced Directives Records Found Additional Source Comments INFORMATION SOURCE (unrecogn ized section and content) DATE CREATED AUTHOR AUTHOR'S ORGANIZ ATION 03/03/2018 [facility] DATE CREATED AUTHOR AUTHOR'S ORGANIZ ATION 2018 [facility] DATE CREATED AUTHOR AUTHOR'S ORGANIZ ATION 02/16/2020 [facility] DATE CREATED AUTHOR AUTHOR'S ORGANIZ ATION 05/06/2021 [facility] DATE CREATED AUTHOR AUTHOR'S ORGANIZ ATION 07/17/2023 [facility] [place] [facility] DATE CREATED AUTHOR AUTHOR'S ORGANIZ ATION 07/29/2023 [facility] Care Team (unrecognized sect ion and content) Director Of Cardiac Cath Lab Relationship Specialty Start Date End Date Keshav Gomez CNP [address] [place] [address] Referring Internal Medicine 03/21/21 Director Of Cardiac Cath Lab Relationship Specialty Start Date End Date Chioma Rutledge [address] [place] [address] PCP - General 07/27/23 Keshav Gomez CNP [address] [place] [address] Referring Internal Medicine 03/21/21 Source Comments (unrecognize d section and content) In the event this informatio n is protected by the Federal Confidentiality of Alcohol and Drug Abuse Patient Records regulations: The Federal rules restrict any use of the information to criminally investigate or prosecute any alcohol or drug abuse patient.[facility] event this information is protected by the Federal Confidentiality of Alcohol and Drug Abuse Patient Records regulations: The Federal rules restrict any use of the information to criminally investigate or prosecute any alcohol or drug abuse patient.[facility] the event this information is protected by the Federal Confidentiality of Alcohol and Drug Abuse Patient Records regulations: The Federal rules restrict any use of the information to criminally investigate or prosecute any alcohol or drug abuse patient.[facility] Reason for Visit (unrecogniz ed section and content) Reason Comments Back Pain Mid back pain, hurts to breath x 2 hrs Reason Comments Arm Pain Left bicep pain for 2weeks. FOR RECORDS PERTAINING TO PATIENTS WHO ARE OR HAVE BEEN ENROLLED IN A CHEMICAL DEPENDENCY/SUBSTANCEABUSE PROGRAM, SOME INFORMATION MAY BE OMITTED. This clinical summary was aggregated from multiple sources. Caution should be exercised in using it in the provision of clinical care. This summary normalizes information from multiple sources, and as a consequence, information in this document may materially change the coding, format and clinical context of patient data. In addition, data may be omitted in some cases. CLINICAL DECISIONS SHOULD BE BASED ON THE PRIMARY CLINICAL RECORDS. [facility] [employer] [facility]. provides no warranty or guarantee of the accuracy or completeness of information in this document.
[2023-09-15 13:27] LABS: ALB/GLOB Ratio 1.1 RATIO (0.9-2.4); AST(SGOT) 8 U/L (15-37); Alanine Aminotransfer ALT/SGPT 23 U/L (13-56); Albumin, Serum 3.5 g/dL (3.2-5.0); Alkaline Phosphatase 123 U/L (45-117); Anion Gap 5 (5-15); BUN 12 mg/dL (7-18); BUN/Creat Ratio 12.5 RATIO (10-20); Calcium,Total 9.1 mg/dL (8.5-10.1); Chloride 109 mmol/L (98-107); Creatinine, Serum 0.96 mg/dL (0.55-1.02); EST Glomerular Filtration Rate 73 mL/min (>60); Est Glom Filt Rate - Afr Amer 88 mL/min (>60); Globulin 3.3 g/dL (2.2-4.2); Glucose 126 mg/dL (74-106); Iron Binding Capacity,Total 373 ug/dL (250-450); Protein, Total 6.8 g/dL (6.4-8.2); Sodium Level 138 mmol/L (136-145); Thyroid Stim Hormone (TSH) 0.72 uIU/mL (0.358-3.74)
[2023-09-16 09:15] LABS: Iron 111 ug/dL (50-170)
== END | disposition home or self-care (01) ==
DX: N92.0 Excessive and frequent menstruation with regular cycle (principal); R56.9 Unspecified convulsions
CPT/HCPCS: 36415; 80053; 83540; 83550; 84443; 85025

== ENCOUNTER 2023-09-27 11:33 | Emergency (ER) | payer MEDICAID, SELFPAY ==
[2023-09-27 11:34] VITALS: BP 132/81; PULSE 67; RESP 16; TEMP 35.7; O2SAT 100; BMI 35.9
--- NOTE | 2023-09-27 11:47 | CT_ITS ---
STUDY: CT BRAIN WITHOUT CONTRAST REASON FOR EXAM: Female, 28 years old. . Blurred vision. Neck pain. RADIATION DOSAGE (If Supplied By Facility): CTDIvol = ( 44.99 ) mGy, DLP = ( 1332.68 ) mGycm TECHNIQUE: Transaxial CT imaging of the brain was performed without administration of intravenous contrast material. Individualized dose optimization techniques were used for this CT. COMPARISON: Comparison is made with prior study dated February 07, 2021. FINDINGS: Normal soft tissue structures. Normal calvarium. Normal size ventricles and extra-axial spaces for the patient''s age. Normal white matter tracts of the cerebral hemispheres. Normal basal ganglia and thalami. Normal brainstem. Normal cerebellum. There is no intracranial hemorrhage. There are no findings of an acute ischemic infarction. Normal visualized paranasal sinuses. CT/Brain/Head without Contrast IMPRESSION: Normal unenhanced CT scan of the brain. Electronically Signed: Sunday Wallace MD at 12:27 EST ,
--- NOTE | 2023-09-27 11:47 | CT_ITS ---
STUDY: CT CERVICAL SPINE WITHOUT CONTRAST REASON FOR EXAM: Female, 28 years old. Cervical pain. RADIATION DOSAGE (If Supplied By Facility): CTDIvol = ( 27.45 ) mGy, DLP = ( 1332.68 ) mGycm TECHNIQUE: High resolution transaxial imaging was performed without contrast material. Sagittal and coronal images were reconstructed. Individualized dose optimization techniques were used for this CT. COMPARISON: None FINDINGS: Normal craniovertebral junction. Normal anterior atlantoaxial articulation. Normal odontoid process. There is straightening of the normal cervical lordosis. Normal vertebral bodies and posterior osseous elements. C2-3: Normal endplates. Normal disc height and morphology. Normal central canal and intervertebral neuroforamina. C3-4: Normal endplates. Normal disc height and morphology. Normal central canal and intervertebral neuroforamina. C4-5: Normal endplates. Normal disc height and morphology. Normal central canal and intervertebral neuroforamina. C5-6: Normal endplates. Normal disc height and morphology. Normal central canal and intervertebral neuroforamina. C6-7: Normal endplates. Normal disc height and morphology. Normal central canal and intervertebral neuroforamina. C7-T1: Normal endplates. Normal disc height and morphology. Normal central canal and intervertebral neuroforamina. Normal visualized soft tissue structures. CT/Spine Cervical without Contras IMPRESSION: There is straightening of the normal cervical lordosis. Electronically Signed: Sunday Wallace MD at 12:34 EST ,
--- NOTE | 2023-09-27 11:49 | EDS_ITS ---
HPI History of Present Illness Chief Complaint: Other, Pain/Inj Informant: patient Onset/Context/Timing Onset: Days (4 days) Narrative Narrative: Patient presents secondary to 4-day history of sharp shooting neck pain over her head into the left side of her face. She states she will have occasional sharp pain that feels that it starts in the left upper neck. She is across her scalp and into her face. Causing some blurred vision from her left eye. She saw her PCP this morning who felt like her left eye was swollen and sent her to the emergency room. She also reports ringing in her ears bilaterally. No recent injury. Patient states that she was seen here on August 20 with a seizure. Workup was negative and thought that seizure may have been brought on by stress. She is not currently on anticonvulsants. PCP is currently arranging neurology follow- up. [facility] Medical History Migraines Von willebrand disease, type 1 Home Medications melatonin 1 mg tablet 5 mg PO HS PRN sleep 10/28/22 [History Last Taken Unknown] diazepam 2 mg tablet (Valium) 2 mg PO TID PRN muscle spasm #14 tabs 09/27/23 [Rx Last Taken Unknown] lidocaine 5 % topical patch (Lidoderm) 1 patch topical DAILY #5 ea 09/27/23 [Rx Last Taken Unknown] Allergy/AdvReac Type Severity Reaction Status Date / Time hydrocodone bitartrate AdvReac Vomiting Verified 09/27/23 11:33 [From Vicodin] Surgical History History of arthroscopic knee surgery History of placement of ear tubes History of tonsillectomy and adenoidectomy Social History Smoking Status: Current every day smoker tobacco type: cigarettes and e- cigarettes ROS ROS ED Constitutional Constitutional ED: Denies chills or fever(s) Eyes Eyes: Reports blurry vision left; Denies discharge from eye(s) ENT ENT ED: Denies discharge from eye(s), rhinorrhea or sore throat Cardiovascular Cardiovascular: Denies chest pain or palpitations Respiratory/Chest Respiratory/Chest: Denies cough or dyspnea Gastrointestinal Gastrointestinal: Denies abdominal pain, diarrhea, nausea or vomiting Genitourinary Genitourinary ED: Denies dysuria Musculoskeletal Musculoskeletal: Reports neck pain; Denies back pain or extremity pain Integumentary Denies Abrasions or rash Neurologic Neurologic: Reports headache(s); Denies weakness Psychiatric Psychiatric: Denies anxiety or depression Allergic/Immunologic Allergic/Immunologic ED: Denies lip swelling or urticaria EXAM Physical Exam Const Vital Signs: 09/27/23 11:34 09/27/23 12:12 Temperature 96.2 F L Temperature Source Temporal Pulse Rate 67 Respiratory Rate 16 Respiratory Effort Normal Respiratory Pattern Normal Blood Pressure 132/81 H Blood Pressure Mean 98 Pulse Ox 100 Oxygen Delivery Method Room Air Positive well nourished and well developed General Appearance ED: well developed HEENT Reports moist mucous membranes Eyes PERRL and EOMs intact bilaterally Chest Wall inspection of chest normal and palpation of chest normal Resp normal respiratory effort and clear to auscultation bilaterally Cardio regular rate and regular rhythm GI non-tender Palpation: soft Extremity normal to inspection Neuro oriented x3 and no sensory deficits noted Motor Exam: strength 5/5 throughout Psych mental status grossly normal Skin no rashes or lesions noted MDM MDM MDM Narrative Medical decision making narrative: Patient was sent for CT scan of the head and C-spine for any acute abnormalities. I suspect she has pinched nerve that is radiating across the scalp and into the face. Radiography Diagnostic Testing: Clinical Impression(s) from Imaging Studies Brain CT 09/27/23 11:47 IMPRESSION: Normal unenhanced CT scan of the brain. Electronically Signed: Sunday Wallace MD at 12:27 EST , Cervical Spine CT 09/27/23 11:47 IMPRESSION: There is straightening of the normal cervical lordosis. Electronically Signed: Sunday Wallace MD at 12:34 EST , Treatment and Re-Evaluation :: CT scan of the head reveals no acute abnormalities. CT the C-spine shows straightening of the normal cervical lordosis. Given the patient's prior seizure I do not want to give her Flexeril. I will write her a short course of Valium for muscle relaxer as well as Lidoderm patches to put on the back of her neck. She is to follow-up with her primary care physician. Return instructions provided. Discharge Plan Triage Chief Complaint: Other, Pain/Inj ED Provider: Jojo Mcneal Dx/Rx/DC Orders Clinical Impression: Pinched nerve in neck Instructions: ED Neck Spasm, No Trauma Prescriptions: New diazepam [Valium] 2 mg tablet 2 mg PO TID PRN (Reason: muscle spasm) Qty: 14 0RF lidocaine [Lidoderm] 5 % adhesive patch,medicated 1 patch topical DAILY Qty: 5 0RF Rx Instructions: leave on most painful area for up to 12 hrs No Action melatonin 1 mg tablet 5 mg PO HS PRN (Reason: sleep) [facility] Disposition Disposition: Home, Self Care Capacity [employer] General [employer] Reflex Medical hold order details:: IF a medical hold is selected below, a suggested order for a MEDICAL HOLD will reflex upon signing the document. Next of kin: [place] law dictates a PRIORITY LIST for identifying legal decision-maker/legal next of kin in the following order (LNOK): 1st: The patient?s legal guardian, if any 2nd: The patient's spouse (if status is questionable, consult Risk Management) 3rd: The patient?s adult child(tim) (majority, if multiple children) 4th: The patient?s parents 5th: The patient?s adult siblings (majority, if multiple children siblings)
--- NOTE | 2023-09-27 12:14 | ED.RN ---
pt presents to ER with chief complaint of pain radiating from back of head through left eye. started 4 days ago. pain comes and goes. when pain comes pt also experiences blurry vision. pain rated 6-7 on a scale of 0-10.
--- OUTSIDE RECORDS SUMMARY | 2023-09-27 12:44 | XMS RPT_ITS | CCD ---
Author Name Unknown Address [address] [place] [address] Organization [facility] Care Team Providers Care Commercial Litigation Associate Name Role Phone Rodriguez Thomas Unavailable Unavailable Rodriguez Thomas Unavailable Unavailable James Healy Unavailable Unavailable James Healy Unavailable Unavailable [facility] Unavailable Unavailable Cr Lassiter Unavailable Unavailable PROVIDER, UNKNOWN Unavailable Unavailable PROVIDER, UNKNOWN Unavailable Unavailable KESHAV QUINONES Primary Care Physician Keshav Gomez CNP K Unavailable [phone] DIANA VEE Attending Unavailable KESHAV QUINONES Primary Care Unavailab MICHI Brown Attending Unavailable ALYSSA BROCK Primary Care [facility], Chioma Gilliland Primary Care Provider Un available PAUL SARMIENTO Referring Unavailable MADELEINE KAPOOR Referring Unavailable Allergies Allergy Classification Reported Allergen(s) Allergy Type Date of Onset Reaction(s) Facility (4 sources) Acetaminophen / HYDROcodone; Translations: [acetaminophen-hyd rocodone] Drug Allergy 6 Vomiting [facility] Work Phone: (5 sources) Aspirin; Translations: [aspirin] Drug Allergy 6 Other: See Comments [facility] Work Phone: (5 sources) Ibuprofen; Translations: [ibuprofen] Drug Allergy 6 Other: See Comments [facility] Work Phone: Medications Current Medications Medication Drug [...] 14:19-0500 Body temperature 98.01 [degF] Madeleine Kapoor APRN.FLATWORK PRESSER Work Phone: [facility] 07-27-2023 14:19-0500 Body weight 93.08 kg Madeleine Kapoor FOOD ANALYST.FLATWORK PRESSER Work Phone: [facility] 07-27-2023 14:19-0500 Diastolic blood pressure 60 mm[Hg] Madeleine Kapoor FOOD ANALYST.FLATWORK PRESSER Work Phone: [facility] 07-27-2023 14:19-0500 Heart rate 78 /min Madeleine Kapoor FOOD ANALYST.FLATWORK PRESSER Work Phone: [facility] 07-27-2023 14:19-0500 Respiratory rate 16 /min Madeleine Kapoor FOOD ANALYST.FLATWORK PRESSER Work Phone: [facility] 07-27-2023 14:19-0500 SaO2% (BldA) [Mass fraction] 99 % Madeleine Kapoor FOOD ANALYST.FLATWORK PRESSER Work Phone: [facility] 07-27-2023 14:19-0500 Systolic blood pressure 110 mm[Hg] Madeleine Aquinosushant FOOD ANALYST.FLATWORK PRESSER Work Phone: [facility] 06-23-2023 14:32-0400 Body temperature 98.4 [degF] Paul Sarmiento FOOD ANALYST.FLATWORK PRESSER Work Phone: [facility] 06-23-2023 14:32-0400 Body weight 91.81 kg Paul Sarmiento FOOD ANALYST.FLATWORK PRESSER Work Phone: [facility] 06-23-2023 14:32-0400 Diastolic blood pressure 78 mm[Hg] Paul Sarmiento FOOD ANALYST.FLATWORK PRESSER Work Phone: [facility] 06-23-2023 14:32-0400 Heart rate 75 /min Paul Sarmiento FOOD ANALYST.FLATWORK PRESSER Work Phone: [facility] 06-23-2023 14:32-0400 Respiratory rate 21 /min Paul Sarmiento FOOD ANALYST.FLATWORK PRESSER Work Phone: [facility] 06-23-2023 14:32-0400 SaO2% (BldA) [Mass fraction] 98 % Paul Sarmiento FOOD ANALYST.FLATWORK PRESSER Work Phone: [facility] 06-23-2023 14:32-0400 Systolic blood pressure 118 mm[Hg] Paul Sarmiento FOOD ANALYST.FLATWORK PRESSER Work Phone: [facility] 01-16-2022 08:17-0400 Body height [address] VITALY PEREZ MD [facility] 01-16-2022 08:17-0400 Body temperature 98.6 [degF] DR VITALY PEREZ MD [facility] 01-16-2022 08:17-0400 Body weight 88.[address] VITALY PEREZ MD [facility] 01-16-2022 08:17-0400 Diastolic blood pressure 85 mm[Hg] DR VITALY PEREZ MD [facility] 01-16-2022 08:17-0400 Heart rate 85 /min DR VITALY PEREZ MD [facility] 01-16-2022 08:17-0400 Respiratory rate 18 /min DR VITALY PEREZ MD [facility] 01-16-2022 08:17-0400 Systolic blood pressure 131 mm[Hg] DR VITALY PEREZ MD [facility] Encounters Encounter Date Encounter Type Care Provider Facility Start: 07-27-2023 End: 07-27-2023 ambulatory MADELEINE KAPOOR Facility:[facility] Start: 07-27-2023 End: 07-27-2023 Office outpatient visit 15 minutes Madeleine Kapoor FOOD ANALYST.FLATWORK PRESSER Work Phone: [facility] Procedures Date Procedure Procedure Detail Performing Clinician Knee region structur e (body structure) DR VITALY PEREZ MD Tonsillectomy and adenoidectomy DR VITALY PEREZ MD Tympanostomy DR VITALY DUNCAN MD Plan of Treatment Date Care Activity Detail Author Start: 09-28-2025 PAP TESTING PAP TESTING [facility] Start: 05-14-2023 Influenza vaccination Influenza Vacc ine (#1) [facility] Start: 09-13-2022 DEPRESSION ASSESSMENT DEPRESSION ASS ESSMENT [facility] Start: 05-14-2022 Influenza vaccination INFLUENZA (#1) [facility] Start: 02-19-2018 Urine microalbumin profile [facility] Start: 2000 PNEUMOCOCCAL (1 - PCV) PNEUMOCOCCAL (1 - PCV) [facility] Start: 2000 Pneumococcal vaccination Pneum ococcal Vaccine (1 - PCV) [facility] Start: 1994 COVID-19 VACCINE (#1) COVID-19 VACCI NE (#1) [facility] Immunizations Immunization Date Immunization Notes Care Provider Fa laurie 08-30-2012 influenza, seasonal, injectable Rossy Tyler MD Work Phone: [facility] 08-30-2012 influenza virus vacc ine, unspecified formulation Paul Sarmiento FOOD ANALYST.FLATWORK PRESSER Work Phone: [facility] 06-26-2011 influenza, seasonal, injectable Rossy Tyler MD Work Phone: [facility] 07-24-2008 influenza, seasonal, injectable Rossy Tyler MD Work Phone: [facility] 02-20-2008 hepatitis A vaccine, unspecified formulation Rossy Tyler MD Work Phone: [facility] 02-20-2008 hepatitis B vaccine, adult dosage Rossy Tyler MD Work Phone: [facility] 02-20-2008 human papilloma viru s vaccine, quadrivalent Rossy Tyler MD Work Phone: [facility] 02-20-2008 tetanus toxoid, redu sola diphtheria toxoid, and acellular pertussis vaccine, adsorbed Rossy Tyler MD Work Phone: [facility] 09-28-2007 hepatitis B vaccine, adult dosage Rossy Tyler MD Work Phone: [facility] 09-28-2007 human papilloma viru s vaccine, quadrivalent Rossy Tyler MD Work Phone: [facility] 08-15-2007 hepatitis A vaccine, unspecified formulation Rossy Tyler MD Work Phone: [facility] 08-15-2007 hepatitis B vaccine, adult dosage Rossy Tyler MD Work Phone: [facility] 08-15-2007 influenza, seasonal, injectable Rossy Tyler MD Work Phone: [facility] 08-15-2007 meningococcal polysaccharide (groups A, C, Y and W-135) diphtheria toxoid conjugate vaccine (MCV4P) Rossy Tyler MD Work Phone: [facility] 07-28-2007 human papilloma viru s vaccine, quadrivalent Rossy Tyler MD Work Phone: [facility] 08-13-2005 influenza virus vacc ine, unspecified formulation Rossy Tyler MD Work Phone: [facility] Work Phone: 07-02-2005 Meningococcal, MCV4, unspecified conjugate formulation(groups A, C, Y and W-135) Rossy Tyler MD Work Phone: [facility] 07-02-2005 tetanus toxoid, redu sola diphtheria toxoid, and acellular pertussis vaccine, adsorbed Rossy Tyler MD Work Phone: [facility] 08-11-1999 varicella virus vaccine Nasir Tyler MD Work Phone: [facility] Work Phone: 02-26-1999 diphtheria, tetanus toxoids and acellular pertussis vaccine Rossy Tyler MD Work Phone: [facility] Work Phone: 02-26-1999 measles, mumps and rubella virus vaccine Rossy Tyler MD Work Phone: [facility] Work Phone: 02-26-1999 poliovirus vaccine, inactivated Rossy Tyler MD Work Phone: [facility] Work Phone: 06-08-1995 haemophilus influenz ae type b vaccine, HbOC conjugate Rossy Tyler MD Work Phone: [facility] Work Phone: 03-15-1995 measles, mumps and rubella virus vaccine Rossy Tyler MD Work Phone: [facility] Work Phone: 1994 diphtheria, tetanus toxoids and acellular pertussis vaccine Rossy Tyler MD Work Phone: [facility] Work Phone: 1994 haemophilus influenz ae type b vaccine, HbOC conjugate Rossy Tyler MD Work Phone: [facility] Work Phone: 1994 hepatitis B vaccine, pediatric or pediatric/adolescent dosage Rossy Tyler MD Work Phone: [facility] Work Phone: 1994 poliovirus vaccine, inactivated Rossy Tyler MD Work Phone: [facility] Work Phone: 1994 diphtheria, tetanus toxoids and acellular pertussis vaccine Rossy Tyler MD Work Phone: [facility] Work Phone: 1994 haemophilus influenz ae type b vaccine, HbOC conjugate Rossy Tyler MD Work Phone: [facility] Work Phone: 1994 poliovirus vaccine, inactivated Rossy Tyler MD Work Phone: [facility] Work Phone: 1994 diphtheria, tetanus toxoids and acellular pertussis vaccine Rossy Tyler MD Work Phone: [facility] Work Phone: 1994 haemophilus influenz ae type b vaccine, HbOC conjugate Rossy Tyler MD Work Phone: [facility] Work Phone: 1994 hepatitis B vaccine, pediatric or pediatric/adolescent dosage Rossy Tyler MD Work Phone: [facility] Work Phone: 1994 poliovirus vaccine, inactivated Rossy Tyler MD Work Phone: [facility] Work Phone: 1994 hepatitis B vaccine, pediatric or pediatric/adolescent dosage Rossy Tyler MD Work Phone: [facility] Work Phone: Payers Date Payer Category Payer Self-pay 2022 Unknown [id number] 2020 Medicaid 2017 Unknown 1994 Unknown [id number] 1994 Unknown [id number] Unknown [id number] Social History Date Type Detail Facility Start: 02-11-2021 Tobacco smoking status Light t obacco smoker (finding) [facility] Sex Assigned At Sex [facility] Start: 04-18-2021 End: 06-23-2023 Tobacco smoking status NHIS Smokes tobacco daily [facility] History of tobacco use Cigarette Smoker C [facility] Start: 04-18-2021 End: 06-23-2023 Tobacco use and exposure Smokeless tobacco non-user [facility] Start: 11-20-2021 End: 07-27-2023 Alcohol intake Current non-drinker of alcohol (finding) [facility] Start: 01-06-2016 Alcohol Comment quit alcohol at age 14. [facility] Start: 1994 Sex Assigned At Female C [facility] Start: 04-18-2021 End: 06-23-2023 History of Social function [facility] Start: 04-18-2021 End: 06-23-2023 Tobacco use panel [facility] PHQ-2 Score 0 [facility] Start: 10-02-2022 Gender identity Identifies as female gender (finding) [facility] Start: 10-02-2022 Sexual orientation Homosexual (findi ng) [facility] Functional Status Date Assessment Result Facility 01-16-2022 Functional Status Sanjuanita ne[place] [facility] Mental Status Date Assessment Result Facility 01-16-2022 Mental Status Sanjuanita Elliottit al [facility] Clinical Notes 01-16-2022 to 07-27-2023 Madeleine Kapoor, DASH.[facility] - 07/27/2023 2:31 PM ESTPatient InstructionsPaul Sarmiento APRN.FLATWORK PRESSER - 06/23/2023 2:36 PM EDTTelephone Encounter - Rossy Tyler MD - 10/03/2022 8:37 AM EST Note Date & Type Note Facility 07-27-2023 Note HNO ID: [id number] Author: Juana Mcrae RT(R) Service: Radiology Author [...] RT Fredy(R) July 27, 2023 3:02 PM [facility] 07-27-2023 Note HNO ID: [id number] Author: Madeleine Kapoor APRN.FLATWORK PRESSER Service: ? Author Type: Nurse Practitioner Type: [...] difficult due to discomfort. 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 No numbness no tingling. No decrease sensation currently. No fractures or surgeries in the past. Denies any fever body aches chills productive cough chest pain shortness of breath pleuritic pain hemoptysis nausea vomiting abdominal pain change in bowel or bladder habits. Past medical history prescription medication use and allergies reviewed. Rnjzb-lvjh-ckcpzcxu. .Patient presents with: Arm Pain: Left bicep [...] of care. This note was generated using Rostima software. It may contain errors in wording, punctuation, or spelling. Madeleine Kapoor APRN.FLATWORK PRESSER [facility] 07-27-2023 History of Presen t illness Narrative Subjective HPI Nontoxic-appearing female presents urgent care chief complaint left bicep pain. Duration of symptoms 2 weeks. Associated symptoms left bicep discomfort. Has been present for about 2 weeks. Has not used any OTC medications. Rates pain 3 out of 10. States work has been a little more difficult due to discomfort. 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 No numbness no tingling. No decrease sensation currently. No fractures or surgeries in the past. Denies any fever body aches chills productive cough chest pain shortness of breath pleuritic pain hemoptysis nausea vomiting abdominal pain change in bowel or bladder habits. Past medical history prescription medication use and allergies reviewed. Ufcuw-lfvv-kysxeboa. .Patient presents with: Arm Pain: Left bicep [...] of care. This note was generated using Rostima software. It may contain errors in wording, punctuation, or spelling. Madeleine Kapoor APRN.FLATWORK PRESSER documented in this encounter [facility] 06-23-2023 Note HNO ID: [id number] Author: Juana Mcrae RT(R) Service: Radiology Author [...] RT Fredy(R) June 23, 2023 2:45 PM [facility] 06-23-2023 Note HNO ID: [id number] Author: Paul Sarmiento APRN.FLATWORK PRESSER Service: ? Author Type: Nurse Practitioner Type: Progress Notes Filed: 06/23/2023 4:00 PM Note Text: This note was created using Navutriter. Subjective Nai Gómez is a 28 year [...] worsening of symptoms occurs. Paul Sarmiento APRN [facility] 06-23-2023 Instructions Paul Sarmiento APRN.[facility] - 06/23/2023 2:49 PM EDT Diaphragmatic [...] legs or feet. documented in this encounter [facility] 06-23-2023 History of Presen t illness Narrative Images from the original note were not included. This note was created using PowerbyProxi. Subjective Nai Gómez is a 28 year [...] worsening of symptoms occurs. Paul Sarmiento APRN FLATWORK PRESSER documented in this encounter [facility] 10-03-2022 Miscellaneous Notes Patient's request for medication is as follows Requested Prescriptions Signed Prescriptions Disp Refills desmopressin (DDAVP) 10 mcg/spray (0.1 mL) spry 5 mL 5 Sig: Use 2 Sprays in the nose every 12 hours as needed. Authorizing Provider: ROSSY TYLER Order entered - please phone pharmacy and notify patient. Rossy Tyler MD documented in this encounter [facility] 01-16-2022 Hospital Discharg e instructions Patient Education [...] loosen secretions in the nose and lungs. Kuyr-sfi-vvknzjw cold medicines will not shorten the length of time you re sick, but they may be helpful for the following symptoms: cough, sore throat, and nasal and sinus congestion. If you take prescription medicines, ask your healthcare provider or pharmacist which gwmh-mat-xjkggtm medicines are safe to use. (Note: Don't [...] it goes along with a muffled voice [id number] [employer]. [address] [place] [address]. All rights reserved. This information is not [...] a towel soaked in hot water. Or, closing manager the shower and direct the warm spray onto your face. Using a vaporizer along with a menthol rub at night may also help soothe symptoms. An expectorant with guaifenesin may help thin nasal mucus and help your sinuses drain fluids. You can use an jftk-hio-vqdpzuw decongestant, unless a similar medicine was prescribed [...] use decongestants. They can raise blood pressure.) Jyzt-zya-kqlobbk antihistamines may help if allergies contributed to [...] that don't go away in 10 days [id number] [employer] [place] [address]. All rights reserved. This information is not intended as a substitute for professional medical care. Always follow your healthcare professional's instructions. Follow Up Care 01/16/2022 08:08:54 With:DIANA JOHNSTON Address: [address] [place] [address]- Business (1) When:2-4 days Comments:Return to ED if symptoms worsen With:Call Physician Referral Address:Unknown When:2-4 days [facility] Evaluation + Plan note No data available for this section [facility] Diagnosis Pain of left upper extremity- Primary [facility] No data available for this section [facility] Reason for referral (narrative)* Diagnostic Procedure Only (Routine) - Closed Specialty Diagnoses / Procedures Referred By Contac t Referred To Contact XR IMAGING Diagnoses Traumatic injury of rib Back pain due to injury Procedures XR RIBS/CHEST 3V AP RIB/OBLS/CXR RIGHT RADEX RIBS UNI W/POSTEROANT CH MINIMUM 3 VIEWS Paul Sarmiento APRN.FLATWORK PRESSER [address] [place] [address] Xr Imaging [facility] Referral ID Status Reason Start Date Expiration Date V isits Requested Visits Authorized [id number] Closed Auto-Generate d Referral 06/23/2023 07/22/2024 1 1 [facility] for referral (narrative)* Diagnostic Procedure Only (Urgent) - Closed Specialty Diagnoses / Procedures Referred By Contac t Referred To Contact XR IMAGING Diagnoses Pain of left upper extremity Procedures XR HUMERUS 2V AP/LAT LEFT RADEX HUMERUS MINIMUM 2 VIEWS Madeleine Kapoor APRN.FLATWORK PRESSER [address] [place] [address] [place] [address] Referral ID Status Reason Start Date Expiration Date V isits Requested Visits Authorized [id number] Closed Auto-Generate d Referral 07/27/2023 08/25/2024 1 1 [facility] Summary Purpose Family History No Family History [...] DATE CREATED AUTHOR AUTHOR'S ORGANIZ ATION 03/03/2018 [facility] DATE CREATED AUTHOR AUTHOR'S ORGANIZ ATION 2018 [facility] DATE CREATED AUTHOR AUTHOR'S ORGANIZ ATION 02/16/2020 [facility] DATE CREATED AUTHOR AUTHOR'S ORGANIZ ATION 05/06/2021 [facility] DATE CREATED AUTHOR AUTHOR'S ORGANIZ ATION 07/17/2023 [facility] DATE CREATED AUTHOR AUTHOR'S ORGANIZ ATION 07/29/2023 [facility] Care Team (unrecognized sect ion and content) Commercial Litigation Associate Relationship Specialty Start Date End Date Keshav Gomez CNP [address] [place] [address] Referring Internal Medicine 03/21/21 Commercial Litigation Associate Relationship Specialty Start Date End Date Chioma Rutledge [address] [place] [address] PCP - General 07/27/23 Keshav Gomez CNP [address] [place] [address] Referring Internal Medicine 03/21/21 Source Comments (unrecognize d section and content) In the event this informatio n is protected by the Federal Confidentiality of Alcohol and Drug Abuse Patient Records regulations: The Federal rules restrict any use of the information to criminally investigate or prosecute any alcohol or drug abuse patient.[facility] the event this information is protected by the Federal Confidentiality of Alcohol and Drug Abuse Patient Records regulations: The Federal rules restrict any use of the information to criminally investigate or prosecute any alcohol or drug abuse patient.[facility] the event this information is protected by the Federal Confidentiality of Alcohol and Drug Abuse Patient Records regulations: The Federal rules restrict any use of the information to criminally investigate or prosecute any alcohol or drug abuse patient.[facility] Reason for Visit (unrecogniz ed section and [...] BE BASED ON THE PRIMARY CLINICAL RECORDS. [facility] [employer] [facility]. provides no warranty or guarantee of the accuracy or completeness of information in this document.
== END 2023-09-27 13:23 | disposition home or self-care (01) ==
PROVIDERS: Emergency Provider Emergency Medicine; Visit Provider Emergency Medicine
DX: G58.8 Other specified mononeuropathies (principal); H53.8 Other visual disturbances; F17.210 Nicotine dependence, cigarettes, uncomplicated; F17.290 Nicotine dependence, other tobacco product, uncomplicated
CPT/HCPCS: 70450; 72125; 99282

== ENCOUNTER → 2023-11-12 | Outpatient (CLI) | payer MEDICAID, SELFPAY ==
--- NOTE | 2023-11-12 10:21 | MRI_ITS ---
STUDY: MRI BRAIN WITHOUT CONTRAST REASON FOR EXAM: Female, 28 years old. CHRONIC MIGRAINE TECHNIQUE: Standardized multiplanar fat and water weighted pulse sequences were obtained. COMPARISON: CT September 27, 2023 FINDINGS: Normal size of the ventricles and extra-axial spaces for the patient''s age. Normal white matter tracts of the supratentorial brain. There is no evidence for recent intracranial ischemia or other cause of cytotoxic edema on diffusion weighted imaging (DWI). Normal T2* images of the brain without demonstrated susceptibility artifact. There is no demonstrated hemosiderin stain. Normal bilateral basal ganglia. Normal thalami. There is no extra-axial fluid accumulation. Normal flow voids within the major intracranial circulation suggesting patency by spin echo criteria. Normal sella turcica, pituitary gland, infundibular stalk, optic chiasm and hypothalamus. Normal tectal plate and pineal gland. Normal midbrain, tripp and medulla. Normal cerebellum. Normal basal cisterns. Normal bilateral temporal bones. Normal bilateral internal auditory canals. No demonstrated orbital abnormality, within the constraints of a routine brain study. Normal visualized paranasal sinuses. Normal calvarium and skull base. Normal visualized soft tissue structures. Normal visualized upper cervical spine. MRI/Brain without Contrast IMPRESSION: Normal unenhanced MRI of the brain. Electronically Signed: Davon Rashid MD at 13:50 EST ,
--- OUTSIDE RECORDS SUMMARY | 2023-11-12 10:33 | XMS RPT_ITS | CCD ---
Author Name Unknown Address [address] [place] [address] Organization [facility] Care Team Providers Care Catering Sous Chef Name Role Phone Rodriguez Thomas Unavailable Unavailable Rodriguez Thomas Unavailable Unavailable James Healy Unavailable Unavailable James Healy Unavailable Unavailable [facility] Unavailable Unavailable Cr Lassiter Unavailable Unavailable PROVIDER, UNKNOWN Unavailable Unavailable PROVIDER, UNKNOWN Unavailable Unavailable KESHAV QUINONES Primary Care Physician Keshav Gomez CNP Unavailable DIANA VEE Attending Unavailable KESHAV QUINONES Primary Care Unavailab MICHI Brown Attending Unavailable ALYSSA BROCK [facility] Primary Care Provider Un available MADELEINE KAPOOR Referring Unavailable PAUL SARMIENTO Referring Unavailable TATO HAAS Attending Unavailable Allergies Allergy Classification Reported Allergen(s) Allergy Type Date of Onset Reaction(s) Facility (4 sources) Acetaminophen / HYDROcodone; Translations: [acetaminophen-hyd rocodone] Drug Allergy 6 Vomiting [facility] Work Phone: (5 sources) Aspirin; Translations: [aspirin] Drug Allergy 6 Other: See Comments [facility] Work Phone: (5 sources) Ibuprofen; Translations: [ibuprofen] Drug Allergy 6 Other: See Comments [facility] Work Phone: Medications Current Medications Medication Drug [...] Translations: [Unspecified convulsions] Onset: 05-07-2021 05-07-2021 Episodic Other injuries and conditions due to external causes (1 source) Unspecified injury of thorax, initial encounter; Translations: [Traumatic injury of rib] Onset: 06-23-2023 Episodic Spondylosis; intervertebral disc disorders; other back problems (2 sources) Backache; Translations: [Dorsalgia, unspecified] Onset: 06-23-2023 06-23-2023 Episodic Results Test Name Value Interpretation Reference Range Facil ity Vital Signs Date Time Vital Sign Value Performing Clinician Facility 07-27-2023 14:19-0500 Body temperature 98.01 [degF] Madeleine Kapoor ANALYTICS SPECIALIST.COOKING INSTRUCTOR Work Phone: [facility] 07-27-2023 14:19-0500 Body weight 93.08 kg Madeleine Kapoor ANALYTICS SPECIALIST.COOKING INSTRUCTOR Work Phone: [facility] 07-27-2023 14:19-0500 Diastolic blood pressure 60 mm[Hg] Madeleine Kapoor ANALYTICS SPECIALIST.COOKING INSTRUCTOR Work Phone: [facility] 07-27-2023 14:19-0500 Heart rate 78 /min Madeleine Kapoor ANALYTICS SPECIALIST.COOKING INSTRUCTOR Work Phone: [facility] 07-27-2023 14:19-0500 Respiratory rate 16 /min Madeleine Kapoor ANALYTICS SPECIALIST.COOKING INSTRUCTOR Work Phone: [facility] 07-27-2023 14:19-0500 SaO2% (BldA) [Mass fraction] 99 % Madeleine Kapoor ANALYTICS SPECIALIST.COOKING INSTRUCTOR Work Phone: [facility] 07-27-2023 14:19-0500 Systolic blood pressure 110 mm[Hg] Madeleine Kapoor ANALYTICS SPECIALIST.COOKING INSTRUCTOR Work Phone: [facility] 06-23-2023 14:32-0400 Body temperature 98.4 [degF] Paul Sarmiento ANALYTICS SPECIALIST.COOKING INSTRUCTOR Work Phone: [facility] 06-23-2023 14:32-0400 Body weight 91.81 kg Paul Sarmiento ANALYTICS SPECIALIST.COOKING INSTRUCTOR Work Phone: [facility] 06-23-2023 14:32-0400 Diastolic blood pressure 78 mm[Hg] Paul Sarmiento ANALYTICS SPECIALIST.COOKING INSTRUCTOR Work Phone: [facility] 06-23-2023 14:32-0400 Heart rate 75 /min Paul Sarmiento ANALYTICS SPECIALIST.COOKING INSTRUCTOR Work Phone: [facility] 06-23-2023 14:32-0400 Respiratory rate 21 /min Paul Flakito ANALYTICS SPECIALIST.COOKING INSTRUCTOR Work Phone: [facility] 06-23-2023 14:32-0400 SaO2% (BldA) [Mass fraction] 98 % Paul Sarmiento ANALYTICS SPECIALIST.COOKING INSTRUCTOR Work Phone: [facility] 06-23-2023 14:32-0400 Systolic blood pressure 118 mm[Hg] Paul Sarmiento ANALYTICS SPECIALIST.COOKING INSTRUCTOR Work Phone: [facility] 01-16-2022 08:17-0400 Body height [address] VITALY PEREZ MD [facility] 01-16-2022 08:17-0400 Body temperature 98.6 [degF] DR VITALY PEREZ MD [facility] 01-16-2022 08:17-0400 Body weight 88.[address] VITALY PEREZ MD [facility] 01-16-2022 08:17-0400 Diastolic blood pressure 85 mm[Hg] DR VITALY PEREZ MD [facility] 01-16-2022 08:17-0400 Heart rate 85 /min DR VITALY PEREZ MD [facility] 01-16-2022 08:17-0400 Respiratory rate 18 /min DR VITALY PEREZ MD [facility] 01-16-2022 08:17-0400 Systolic blood pressure 131 mm[Hg] DR VITALY PEREZ MD [facility] Encounters Encounter Date Encounter Type Care Provider Facility Start: 11-01-2023 End: 11-01-2023 ambulatory TATO HAAS Not Available Start: 10-05-2023 End: 10-05-2023 [facility] Start: 07-27-2023 End: 07-27-2023 ambulatory [facility] Facility:[facility] Start: 07-27-2023 End: 07-27-2023 [facility].COOKING INSTRUCTOR Work Phone: [facility] Procedures Date Procedure Procedure Detail Performing Clinician Knee region structur e (body structure) DR VITALY PEREZ MD Tonsillectomy and adenoidectomy DR VITALY PEREZ MD Tympanostomy DR VITALY DUNCAN MD Plan of Treatment Date Care Activity Detail Author Start: 09-28-2025 PAP TESTING PAP TESTING [facility] Start: 05-14-2023 Influenza vaccination Influenza Vacc ine (#1) [facility] Start: 09-13-2022 DEPRESSION ASSESSMENT DEPRESSION ASS ESSMENT [facility] Start: 05-14-2022 Influenza vaccination INFLUENZA (#1) [facility] Start: 02-19-2018 Urine microalbumin profile [facility] Start: 2000 PNEUMOCOCCAL (1 - PCV) PNEUMOCOCCAL (1 - PCV) [facility] Start: 2000 Pneumococcal vaccination Pneum ococcal Vaccine (1 - PCV) [facility] Start: 1994 COVID-19 VACCINE (#1) COVID-19 VACCI NE (#1) [facility] Immunizations Immunization Date Immunization Notes Care Provider Shellie sullivan 08-30-2012 influenza, seasonal, injectable Rossy Tyler MD Work Phone: [facility] 08-30-2012 influenza virus vacc ine, unspecified formulation Paul Sarmiento ANALYTICS SPECIALIST.COOKING INSTRUCTOR Work Phone: [facility] 06-26-2011 influenza, seasonal, injectable Rossy Tyler MD Work Phone: [facility] 07-24-2008 influenza, seasonal, injectable Rossy Tyler MD Work Phone: [facility] 02-20-2008 hepatitis A vaccine, unspecified formulation Rosys Tyler MD Work Phone: [facility] 02-20-2008 hepatitis B vaccine, adult dosage Rossy Tyler MD Work Phone: [facility] 02-20-2008 human papilloma viru s vaccine, quadrivalent Rossy Tyler MD Work Phone: [facility] 02-20-2008 tetanus toxoid, redu sola diphtheria toxoid, and acellular pertussis vaccine, adsorbed Rossy Tyler MD Work Phone: [facility] 09-28-2007 hepatitis B vaccine, adult dosage Rossy Tyler MD Work Phone: [facility] 09-28-2007 human papilloma viru s vaccine, quadrivalent Rossy Tyler MD Work Phone: [facility] 08-15-2007 hepatitis A vaccine, unspecified formulation Rossy Tyler MD Work Phone: [facility] 08-15-2007 hepatitis B vaccine, adult dosage Rossy Tyler MD Work Phone: [facility] 08-15-2007 influenza, seasonal, injectable Rossy Tyler MD Work Phone: [facility] 08-15-2007 meningococcal polysaccharide (groups A, C, Y and W-135) diphtheria toxoid conjugate vaccine (MCV4P) Rossy Tyler MD Work Phone: [facility] 07-28-2007 human papilloma viru s vaccine, quadrivalent Rossy Tyler MD Work Phone: [facility] 08-13-2005 influenza virus vacc ine, unspecified formulation Rossy Tyler MD Work Phone: [facility] Work Phone: 07-02-2005 Meningococcal, MCV4, unspecified conjugate formulation(groups A, C, Y and W-135) Rossy Tyler MD Work Phone: [facility] 07-02-2005 tetanus toxoid, redu sola diphtheria toxoid, and acellular pertussis vaccine, adsorbed Rossy Tyler MD Work Phone: [facility] 08-11-1999 varicella virus vaccine Nasir Tyler MD Work Phone: [facility] Work Phone: 02-26-1999 diphtheria, tetanus toxoids and acellular pertussis vaccine Rossy Tyler MD Work Phone: [facility] Work Phone: 02-26-1999 measles, mumps and rubella virus vaccine Rossy Tyler MD Work Phone: [facility] Work Phone: 02-26-1999 poliovirus vaccine, inactivated Rossy Tyler MD Work Phone: [facility] Work Phone: 06-08-1995 haemophilus influenz ae type b vaccine, HbOC conjugate Rossy Tyler MD Work Phone: [facility] Work Phone: 03-15-1995 measles, mumps and rubella virus vaccine Rossy Tyler MD Work Phone: [facility] Work Phone: 1994 diphtheria, tetanus toxoids and acellular pertussis vaccine Rossy Tyler MD Work Phone: [facility] Work Phone: 1994 haemophilus influenz ae type b vaccine, HbOC conjugate Rossy Tyler MD Work Phone: [facility] Work Phone: 1994 hepatitis B vaccine, pediatric or pediatric/adolescent dosage Rossy Tyler MD Work Phone: [facility] Work Phone: 1994 poliovirus vaccine, inactivated Rossy Tyler MD Work Phone: [facility] Work Phone: 1994 diphtheria, tetanus toxoids and acellular pertussis vaccine Rossy yTler MD Work Phone: [facility] Work Phone: 1994 haemophilus influenz ae type b vaccine, HbOC conjugate Rossy Tyler MD Work Phone: [facility] Work Phone: 1994 poliovirus vaccine, inactivated Rossy Tyler MD Work Phone: [facility] Work Phone: 1994 diphtheria, tetanus toxoids and acellular pertussis vaccine Rossy Tyler MD Work Phone: [facility] Work Phone: 1994 haemophilus influenz ae type b vaccine, HbOC conjugate Rossy Tyler MD Work Phone: [facility] Work Phone: 1994 hepatitis B vaccine, pediatric or pediatric/adolescent dosage Rossy Tyler MD Work Phone: [facility] Work Phone: 1994 poliovirus vaccine, inactivated Rossy Tyler MD Work Phone: [facility] Work Phone: 1994 hepatitis B vaccine, pediatric or pediatric/adolescent dosage Rossy Tyler MD Work Phone: [facility] Work Phone: Payers Date Payer Category Payer Unknown [id number] 2023 Self-pay 2022 Unknown [id number] 2020 Medicaid 2017 Unknown 1994 Unknown [id number] 1994 Unknown [id number] 1994 Unknown [id number] Unknown [id number] Social History Date Type Detail Facility Start: 02-11-2021 Tobacco smoking status Light t obacco smoker (finding) [facility] Sex Assigned At Sex [facility] Start: 04-18-2021 End: 06-23-2023 Tobacco smoking status NHIS Smokes tobacco daily [facility] History of tobacco use Cigarette Smoker [facility] Start: 04-18-2021 End: 06-23-2023 Tobacco use and exposure Smokeless tobacco non-user [facility] Start: 11-20-2021 End: 07-27-2023 Alcohol intake Current non-drinker of alcohol (finding) [facility] Start: 01-06-2016 Alcohol Comment quit alcohol at age 14. [facility] Start: 1994 Sex Assigned At Female C [facility] Start: 04-18-2021 End: 06-23-2023 History of Social function [facility] Start: 04-18-2021 End: 06-23-2023 Tobacco use panel [facility] PHQ-2 Score 0 [facility] Start: 10-02-2022 Gender identity Identifies as female gender (finding) [facility] Start: 10-02-2022 Sexual orientation Homosexual (findi ng) [facility] Functional Status Date Assessment Result Facility 01-16-2022 Functional Status [place] [facility] Mental Status Date Assessment Result Facility 01-16-2022 Mental Status [place] [facility] Clinical Notes 01-16-2022 to 10-05-2023 Madeleine Kapoor APRN.[facility] - 07/27/2023 2:31 PM ESTPatient Paul Lares APRN.COOKING INSTRUCTOR - 06/23/2023 2:36 PM EDTTelephone Encounter - Rossy Tyler MD - 10/03/2022 8:37 AM EST Note Date & Type Note Facility 10-05-2023 Note HNO ID: [id number] Author: ROSI FATIMA APRN.[facility] Service: ? Author Type: Nurse Practitioner Type: Progress Notes Filed: 10/05/2023 15:58 Note Text: CC: Patient presents with: Sore Throat: Cough x 4 days Patient reports sore throat and cough for 4 days. Has had multiple viral contacts including RSV. Patient denies fever, chills. HPI: Nai Gómez is a 28 year old female who presents to the office with complaint of cough, nonproductive and sore throat for 4 days. Symptoms are staying the same. Associated symptoms includes sore throat and cough. Denies facial pain/pressure, swollen glands, body aches, fever, and ear pain. Treatments tried include nothing so far. with no relief of symptoms. Sick contacts: yes. History of asthma, frequent episodes of bronchitis, chronic bronchitis, bronchiectasis or COPD: No Smoker: No Seasonal/environmental allergies: No The ROS is otherwise negative. The patient's pmh, medications, allergies, and past visits are reviewed. PHYSICAL EXAM: BP 137/72 Pulse 79 Temp 36.7 ?C (98 ?F) Resp 18 Wt 91.6 kg (202 lb) LMP 09/15/2023 (Approximate) SpO2 98% BMI 35.57 kg/m? General appearance: alert, cooperative, pleasant, in no acute distress Head: Normocephalic Eyes: PERRLA, EOM's intact, conjunctiva pink and moist, no icterus, sclera white, non-injected Ears: Right ear: External ear/canal- Normal, TM - clear with good landmarks. Left ear: External ear/canal- Normal, TM - clear with good landmarks Nose: clear. Oropharynx:moist without lesions, mild erythema, without exudates present Neck:supple and no adenopathy Heart: Negative. RRR without obvious murmur, gallop, or rubs. No ectopy. Lungs: clear to auscultation, without rales or wheeze, good air exchange PAST MEDICAL HISTORY Diagnosis Date Family history [...] (Non-Steroidal Anti-Inflammatory Drug), and Tegretol [Carbamazepine] MEDICATIONS topiramate (TOPAMAX) 50 mg tablet take 1 tablet by mouth every day at night Melatonin 5 mg cap TAKE 1 CAPSULE BY MOUTH AT NIGHT NEEDED quetiapine fumarate (SEROQUEL ORAL) Take by mouth. desmopressin (DDAVP) 10 mcg/spray (0.1 mL) spry Use 2 Sprays in the nose every 12 hours as needed. cariprazine (VRAYLAR) 1.5 mg capsule 1.5 mg. (Patient not taking: Reported on 10/05/2023) fluticasone (FLONASE) 50 mcg/actuation nasal spray (Patient not taking: Reported on 10/05/2023) FAMILY HISTORY Problem Relation Age of Onset Hypertension Paternal Grandmother Hypertension Paternal Grandfather Headache Mother other (HIV) Mother Asthma Maternal Grandmother Breast Cancer Maternal Grandmother Diabetes Maternal Grandmother Heart Paternal Uncle Social History Tobacco Use Smoking status: Every Day Types: Cigarettes Smokeless tobacco: Never Substance Use Topics Alcohol use: No Comment: quit alcohol at age 14. Drug use: No DATA REVIEWED: Most recent labs ASSESSMENT/PLAN: 1. Sore throat - ICD9: 462, ICD10: J02.9 (primary diagnosis) - Rapid Strep negative in the office today - Discussed supportive care treatment with fluids, rest and analgesia. - STREP A MOLECULAR (POC) - negative 2. URI, acute - ICD9: 465.9, ICD10: J06.9 - Discussed viral etiology and rationale for treatment. - Symptomatic treatment with prn analgesia - Supportive care with fluids and rest - COVID AND INFLUENZA A/B AND RSV NAAT, ROUTINE Potential red flag symptoms discussed with the patient. Reviewed appropriate action plan to take if red flag symptoms occur. Patient agreeable to treatment plan. Lissa Ashraf Supervising provider was present and guided the care of the patient for the entire session on this date. All documentation was reviewed and agreed upon. Rosi Fatima APRN.[facility] 07-27-2023 Note HNO ID: [id number] Author: Juana Mcrae RT(R) Service: Radiology Author [...] RT Fredy(R) July 27, 2023 3:02 PM [facility] 07-27-2023 Note HNO ID: [id number] Author: Madeleine Kapoor APRN.COOKING INSTRUCTOR Service: ? Author Type: Nurse Practitioner Type: [...] difficult due to discomfort. 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 No numbness no tingling. No decrease sensation currently. No fractures or surgeries in the past. Denies any fever body aches chills productive cough chest pain shortness of breath pleuritic pain hemoptysis nausea vomiting abdominal pain change in bowel or bladder habits. Past medical history prescription medication use and allergies reviewed. Ixysa-kdax-sdaoqobt. .Patient presents with: Arm Pain: Left bicep [...] of care. This note was generated using [employer] software. It may contain errors in wording, punctuation, or spelling. Madeleine Kapoor APRN.[facility] 07-27-2023 History of Presen t illness Narrative Subjective HPI Nontoxic-appearing female presents urgent care chief complaint left bicep pain. Duration of symptoms 2 weeks. Associated symptoms left bicep discomfort. Has been present for about 2 weeks. Has not used any OTC medications. Rates pain 3 out of 10. States work has been a little more difficult due to discomfort. 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 No numbness no tingling. No decrease sensation currently. No fractures or surgeries in the past. Denies any fever body aches chills productive cough chest pain shortness of breath pleuritic pain hemoptysis nausea vomiting abdominal pain change in bowel or bladder habits. Past medical history prescription medication use and allergies reviewed. Huswt-pchk-sozqjdxu. .Patient presents with: Arm Pain: Left bicep [...] of care. This note was generated using [employer] software. It may contain errors in wording, punctuation, or spelling. Madeleine Kapoor APRN.[facility] documented in this encounter [facility] 06-23-2023 Note HNO ID: [id number] Author: Juana Mcrae RT(R) Service: Radiology Author [...] RT Fredy(R) June 23, 2023 2:45 PM [facility] 06-23-2023 Note HNO ID: [id number] Author: Paul Sarmiento APRN.[facility] Service: ? Author Type: Nurse Practitioner Type: Progress Notes Filed: 06/23/2023 4:00 PM Note Text: This note was created using [employer]. Subjective Nai Gómez is a 28 year [...] worsening of symptoms occurs. Paul Sarmiento APRN COOKING INSTRUCTOR [facility] 06-23-2023 Instructions Paul Sarmiento APRN.COOKING INSTRUCTOR - 06/23/2023 2:49 PM EDT Diaphragmatic Breathing [...] legs or feet. documented in this encounter [facility] 06-23-2023 History of Presen t illness Narrative Images from the original note were not included. This note was created using [employer]. Subjective Nai Gómez is a 28 year [...] worsening of symptoms occurs. Paul Sarmiento APRN COOKING INSTRUCTOR documented in this encounter [facility] 10-03-2022 Miscellaneous Notes Patient's request for medication is as follows Requested Prescriptions Signed Prescriptions Disp Refills desmopressin (DDAVP) 10 mcg/spray (0.1 mL) spry 5 mL 5 Sig: Use 2 Sprays in the nose every 12 hours as needed. Authorizing Provider: ROSSY TYLER Order entered - please phone pharmacy and notify patient. Rossy Tyler MD documented in this encounter [facility] 01-16-2022 Hospital Discharg e instructions [...] loosen secretions in the nose and lungs. Sahq-lji-hpygtbc cold medicines will not shorten the length of time you re sick, but they may be helpful for the following symptoms: cough, sore throat, and nasal and sinus congestion. If you take prescription medicines, ask your healthcare provider or pharmacist which fkim-cfd-nhofsln medicines are safe to use. (Note: Don't [...] it goes along with a muffled voice [phone] [employer]. [address] [place] [address], [place] [address]. All rights reserved. This information is not [...] a towel soaked in hot water. Or, fiberglass roving winder the shower and direct the warm spray onto your face. Using a vaporizer along with a menthol rub at night may also help soothe symptoms. An expectorant with guaifenesin may help thin nasal mucus and help your sinuses drain fluids. You can use an pecu-ibw-dowbvii decongestant, unless a similar medicine was prescribed [...] use decongestants. They can raise blood pressure.) Zvtc-dhw-fduiyvr antihistamines may help if allergies contributed to [...] that don't go away in 10 days [phone] [employer]. [address] [place] [address]. All rights reserved. This information is not intended as a substitute for professional medical care. Always follow your healthcare professional's instructions. Follow Up Care 01/16/2022 08:08:54 With:DIANA JOHNSTON Address: [address] [facility] [place] [address]- Business (1) When:2-4 days Comments:Return to ED if symptoms worsen With:Call Physician Referral Address:Unknown When:2-4 days [facility] Evaluation + Plan note No data available for this section [facility] Pain of left upper extremity- Primary [facility] No data available for this section [facility] Reason for referral (narrative)* Diagnostic Procedure Only (Routine) - Closed Specialty Diagnoses / Procedures Referred By Contac t Referred To Contact XR IMAGING Diagnoses Traumatic injury of rib Back pain due to injury Procedures XR RIBS/CHEST 3V AP RIB/OBLS/CXR RIGHT RADEX RIBS UNI W/POSTEROANT CH MINIMUM 3 VIEWS Paul Sarmiento APRN.COOKING INSTRUCTOR [address] [place] [address] [place] [address] Referral ID Status Reason Start Date Expiration Date V isits Requested Visits Authorized [id number] Closed Auto-Generate d Referral 06/23/2023 07/22/2024 1 1 [facility] Diagnostic Procedure Only (Urgent) - Closed Specialty Diagnoses / Procedures Referred By Contac t Referred To Contact XR IMAGING Diagnoses Pain of left upper extremity Procedures XR HUMERUS 2V AP/LAT LEFT RADEX HUMERUS MINIMUM 2 VIEWS Madeleine Kapoor APRN.COOKING INSTRUCTOR [address] [place] [address] [place] [address] Referral ID Status Reason Start Date Expiration Date V isits Requested Visits Authorized [id number] Closed Auto-Generate d Referral 07/27/2023 08/25/2024 1 1 [facility] Summary Purpose Family History No [...] DATE CREATED AUTHOR AUTHOR'S ORGANIZ ATION 03/03/2018 [facility] DATE CREATED AUTHOR AUTHOR'S ORGANIZ ATION 2018 [facility] DATE CREATED AUTHOR AUTHOR'S ORGANIZ ATION 02/16/2020 [facility] DATE CREATED AUTHOR AUTHOR'S ORGANIZ ATION 05/06/2021 [facility] DATE CREATED AUTHOR AUTHOR'S ORGANIZ ATION 07/17/2023 [facility] ([place] DATE CREATED AUTHOR AUTHOR'S ORGANIZ ATION 10/06/2023 [facility] DATE CREATED AUTHOR AUTHOR'S ORGANIZ ATION 11/02/2023 [facility] [facility] Care Team (unrecognized sect ion and content) Catering Sous Chef Relationship Specialty Start Date End Date Keshav Gomez CNP [address] [place] [address] Referring Internal Medicine 03/21/21 Catering Sous Chef Relationship Specialty Start Date End Date Clinic, [facility] Gilliland [address] [place] [address] PCP - General 07/27/23 Keshav Gomez CNP [address] [place] [address] Referring Internal Medicine 03/21/21 Source Comments (unrecognize d section and content) In the event this informatio n is protected by the Federal Confidentiality of Alcohol and Drug Abuse Patient Records regulations: The Federal rules restrict any use of the information to criminally investigate or prosecute any alcohol or drug abuse patient.[facility] the event this information is protected by the Federal Confidentiality of Alcohol and Drug Abuse Patient Records regulations: The Federal rules restrict any use of the information to criminally investigate or prosecute any alcohol or drug abuse patient.[facility] the event this information is protected by the Federal Confidentiality of Alcohol and Drug Abuse Patient Records regulations: The Federal rules restrict any use of the information to criminally investigate or prosecute any alcohol or drug abuse patient.[facility] Reason for Visit (unrecogniz ed [...] BE BASED ON THE PRIMARY CLINICAL RECORDS. [facility]. provides no warranty or guarantee of the accuracy or completeness of information in this document.
== END | disposition home or self-care (01) ==
LOC: MRI 10:13
PROVIDERS: Referring Provider Psychiatry & Neurology Neurology; Visit Provider Psychiatry & Neurology Neurology
DX: G43.719 Chronic migraine without aura, intractable, without status migrainosus (principal)
CPT/HCPCS: 70551

== ENCOUNTER 2024-01-24 16:49 | Emergency (ER) | payer SELFPAY ==
[2024-01-24 16:50] VITALS: BP 125/94; PULSE 72; RESP 16; TEMP 36.6; O2SAT 99; BMI 34.4
--- NOTE | 2024-01-24 17:02 | RAD_ITS ---
STUDY: X-RAY - RIGHT HAND REASON FOR EXAM: Female, 28 years old. INJURY TECHNIQUE: 3 view(s) of the hand. COMPARISON: None. FINDINGS: Normal radiocarpal articulation. Normal distal radioulnar joint. Normal visualized carpal bones. Normal carpal articulations Normal carpometacarpal articulation of the thumb. Normal second through fifth carpometacarpal joints. Normal metacarpi. Normal metacarpophalangeal joint of the thumb. Normal interphalangeal joint of the thumb. Normal proximal and distal phalanges of the thumb. Normal metacarpophalangeal joints of the second through fifth fingers. Normal proximal and distal interphalangeal joints of the second through fifth fingers. Normal phalanges of the second through fifth fingers. The soft tissue structures are unremarkable. RAD/Hand Min 3 Views IMPRESSION: Normal x-ray examination of the hand. Electronically Signed: Taye Mcintosh MD at 17:21 EDT ,
--- NOTE | 2024-01-24 17:47 | EDS_ITS ---
<Statement entered by Jojo Mcneal MD - 01/24/24 18:32> I have personally performed a face to face assessment of the patient and have reviewed the IRINA Note. Patient present secondary to right hand injury. She states she got upset and punched a metal object. She complains of pain along the MCP joints of the third, fourth, and fifth digits as well as the proximal phalanx of the same fingers. She is right-hand dominant. No open wounds noted. Patient sitting up in bed no acute distress. Heart is regular rate and rhythm. Lungs are grossly clear. Right upper extremity examination with mild tenderness palpation over the third, fourth, and fifth MCP joints. Normal edema noted. Good range of motion of the digits with good cap refill and sensation distally. No tenderness at the wrist or elbow. Right hand x-ray per my interpretation reveals no acute fracture. Radiology interpretation reviewed and agrees. Test results discussed with the patient. HPI History of Present Illness Chief Complaint: Upper Extremity Injury Narrative Narrative: Patient is a 28-year-old female with no significant medical history is [id number] presenting to the emerged part with right hand pain. Patient states last evening, she became very upset, and she started punching a metal pole. Patient states she punched several times. Patient has pain to both the second third and fourth knuckles. She went to work today, had difficulty moving her hand and the boss wanted her to go get x-rays. She denies any other injury. Denies any injury to the wrist. [facility] Medical History Migraines Von willebrand disease, type 1 Home Medications NK 01/24/24 [History Last Taken Unknown] Allergy/AdvReac Type Severity Reaction Status Date / Time hydrocodone bitartrate AdvReac Vomiting Verified 01/24/24 16:51 [From Vicodin] Surgical History History of arthroscopic knee surgery History of placement of ear tubes History of tonsillectomy and adenoidectomy Social History (Updated 01/24/24 @ 17:39 by Roxane Phillip) housing: house current occupational status: employed Smoking Status: Current every day smoker tobacco type: cigarettes and e-
--- NOTE | 2024-01-24 17:47 | EX.ED.UPPERE ---
HPI History of Present Illness Chief Complaint: Upper Extremity Injury Narrative Narrative: Patient is a 28-year-old female with no significant medical history is [id number] presenting to the emerged part with right hand pain. Patient states last evening, she became very upset, and she started punching a metal pole. Patient states she punched several times. Patient has pain to both the second third and fourth knuckles. She went to work today, had difficulty moving her hand and the boss wanted her to go get x-rays. She denies any other injury. Denies any injury to the wrist. [facility] Medical History Migraines Von willebrand disease, type 1 Home Medications NK 01/24/24 [History Last Taken Unknown] Allergy/AdvReac Type Severity Reaction Status Date / Time hydrocodone bitartrate AdvReac Vomiting Verified 01/24/24 16:51 [From Vicodin] Surgical History History of arthroscopic knee surgery History of placement of ear tubes History of tonsillectomy and adenoidectomy Social History (Updated 01/24/24 @ 17:39 by Roxane Phillip) housing: house current occupational status: employed Smoking Status: Current every day smoker tobacco type: cigarettes and e-cigarettes ROS ROS ED ROS Narrative Constitutional: Negative for fever, chills, weight loss, weakness Eyes: Negative for vision loss, vision change, double vision ENT: Negative for any sore throat, ear pain, congestion Cardiovascular: Negative for any chest pain, tightness, palpitations Respiratory: Negative for any cough, sputum production, hemoptysis, dyspnea, dyspnea on exertion, orthopnea Gastrointestinal: Negative for any abdominal pain, nausea, vomiting, diarrhea, constipation, blood in stool, blood in vomit : Negative for any urinary frequency, dysuria, retention, blood in urine Muscle skeletal: Negative for any neck pain, back pain. Positive right hand pain Neurological: Negative for any headache, syncope, dizziness Skin: Negative for any rashes, itching, abrasions, lacerations Psychiatric: Negative for any depression, anxiety, stress, suicidal ideation, homicidal ideation Hematologic: Negative for any excessive bruising, easy bleeding EXAM Physical Exam Narrative Exam Narrative: Vital signs reviewed. HEET: Head normocephalic atraumatic, TMs clear bilaterally. Posterior pharynx is clear, moist mucous membranes. Nares clear bilaterally. Neck: Supple with no lymphadenopathy or tenderness. No signs of meningismus. Cardiac: Regular rate and rhythm no murmurs gallops or rubs, equal peripheral pulses bilaterally. Respiratory: Lungs clear to auscultation bilaterally. No chest tenderness. Abdomen: Soft, nontender, nondistended. No abdominal bruit or pulsatile masses. No hepatosplenomegaly Extremities: No peripheral edema, no signs of gross trauma or deformity. Active full range of motion of all extremities. +2 radial pulse. Patient able to flex and extend at the wrist. Patient does have pain with opening closing of her fist. However there is no deformity, there is no abrasion. Neuro: Cranial nerves II through XII intact, no focal neurological deficits. Skin: Clean dry and intact with no rash, purpura, petechiae, vesicles or pustules. Backs/flank: No CVA tenderness, no midline spinal tenderness, no deformity. Psych: Normal mood and affect. No SI, HI or acute psychosis. Const Vital Signs: 01/24/24 16:50 Temperature 98 F Temperature Source Temporal Pulse Rate 72 Respiratory Rate 16 Blood Pressure 125/94 H Blood Pressure Mean 104 Pulse Ox 99 Oxygen Delivery Method Room Air MDM MDM Radiography Diagnostic Testing: Clinical Impression(s) from Imaging Studies Hand X-Ray 01/24/24 17:02 IMPRESSION: Normal x-ray examination of the hand. Electronically Signed: Taye Mcintosh MD at 17:21 EDT Reading Location ID and State: [facility] / [place] Tel , Service support , Treatment and Re-Evaluation Narrative: Differential diagnosis includes however is not limited to: Boxer's fracture, hand contusion, finger fracture Patient appears to be in no obvious respiratory distress, patient's vital signs are stable. Presenting to the emergency department with right hand pain after punching a metal pole. Patient did receive x-rays of the right hand, these were interpreted by the ER physician. This showed normal x-rays of the hand. At this time, patient be treated conservatively with ibuprofen, ice, patient structured to ice and elevate. Instructed to perform gentle stretching. I did speak with her regarding the options of punching a metal pole. Patient is agreeable with the plan. Stable for discharge. Discharge Plan Triage Chief Complaint: Upper Extremity Injury ED Midlevel Provider: Jose Kay ED Provider: Jojo Mcneal Dx/Rx/DC Orders Clinical Impression: Contusion of hand Instructions: Bruises (Contusions), ED Hand Contusion Prescriptions: No Action NK Primary Care Provider: Chioma Hawthorne [facility] [Primary Care Provider] - Activity Restrictions/Additional Instructions: Please ice and elevate. Use ibuprofen, Tylenol. Disposition Disposition: Home, Self Care
== END 2024-01-24 18:42 | disposition home or self-care (01) ==
LOC: ED 18:09
PROVIDERS: Emergency Provider Emergency Medicine; Visit Provider Emergency Medicine
DX: S60.221A Contusion of right hand, initial encounter (principal); F17.210 Nicotine dependence, cigarettes, uncomplicated; F17.290 Nicotine dependence, other tobacco product, uncomplicated; W22.09XA Striking against other stationary object, initial encounter
CPT/HCPCS: 73130; 99282

== ENCOUNTER → 2024-11-28 | Outpatient (CLI) | payer MEDICAID, SELFPAY ==
[2024-11-28 10:46] LABS: Absolute Neutrophil Count 4.7 X10^3/uL (2.0-7.7); Basophil# 0.02 X10^3/uL; Basophil% 0.3 % (0-1); Eosinophil# 0.15 X10^3/uL; Hematocrit 43.3 % (37-47); Hemoglobin 15.4 g/dL (12.0-15.0); Lymphocyte % 27.7 % (19-41); Mean Corp Hgb Conc 35.6 g/dL (32-36); Mean Corpuscular Hgb 30.8 pg (27.0-32.0); Mean Corpuscular Volume 86.6 fL (81-99); Mean Platelet Vol. 10.6 fl (6.2-12.0); Monocyte# 0.63 X10^3/uL; Monocyte% 8.3 % (0-10); NRBC Flagged by Analyzer 0 % (0-5); Neutrophil # 4.66 X10^3/uL (2.7-7.7); Neutrophil % 61.4 % (47-70); Platelet Count 269 K/mm3 (150-450); RBC Distribution Width CV 11.9 % (11.6-14.6); RBC Distribution Width SD 38.1 fl (35.1-43.9); White Blood Count 7.6 K/mm3 (4.4-11.0)
[2024-11-28 11:22] LABS: ALB/GLOB Ratio 1.8 RATIO (0.9-2.4); AST(SGOT) 16 U/L (<=31); Alanine Aminotransfer ALT/SGPT 15 U/L (<=34); Albumin, Serum 4.5 g/dL (3.5-5.0); Alkaline Phosphatase 93 U/L (35-104); Amylase 68 U/L (28-100); Anion Gap 8 (5-15); BUN 8 mg/dL (4-19); BUN/Creat Ratio 8.1 RATIO (10-20); Calcium,Total 9.8 mg/dL (7.6-11.0); Carbon Dioxide 24.8 mmol/L (21.0-32.0); Chloride 106 mmol/L (98-108); Creatinine, Serum 0.98 mg/dL (0.70-1.20); EST Glomerular Filtration Rate 80 (>60); Globulin 2.5 g/dL (2.2-4.2); Glucose 113 mg/dL (70-99); Lipase 25 U/L (13-75); Potassium 4.2 mmol/L (3.3-5.1); Sodium Level 138 mmol/L (133-145); Total Bilirubin 0.48 mg/dL (0.00-1.30)
[2024-11-28 12:28] LABS: Hemoglobin A1c 5.5 % (<=5.6)
== END | disposition home or self-care (01) ==
LOC: LAB 10:07
PROVIDERS: Referring Provider Family Medicine; Visit Provider Family Medicine
DX: R11.2 Nausea with vomiting, unspecified (principal); R73.09 Other abnormal glucose
CPT/HCPCS: 36415; 80053; 82150; 83036; 83690; 85025

== ENCOUNTER → 2024-12-01 | Outpatient (CLI) | payer MEDICAID, SELFPAY ==
--- NOTE | 2024-12-01 09:30 | US_ITS ---
PROCEDURE: ABDOMEN COMPLETE 12/01/2024 REASON FOR EXAM: NAUSEA AND VOMITING TECHNIQUE: Complete abdominal ultrasound matthew-scale images with color doppler. PATIENT PREPARATION: Per protocol COMPARISON: None FINDINGS: Liver: Grossly normal size and echotexture. Gallbladder: No stones, sludge, wall thickening or tenderness. Common bile duct: Normal measuring 3.5 mm. Pancreas: Normal Kidneys: The right kidney measures 10.4 cm x 5.2 cm x 3.5 cm. The left kidney measures 11.3 cm x 4.3 cm 6.2 cm. Spleen: Normal in size and echotexture measuring . Aorta: Visualized abdominal aorta is of normal size. IVC: Visualized inferior vena cava is unremarkable. Peritoneal Findings: No ascites identified. US/Abdomen Complete IMPRESSION: NORMAL ABDOMINAL ULTRASOUND. Reading Location: [place] [address]
== END | disposition home or self-care (01) ==
LOC: US 09:30
PROVIDERS: PCP Family Medicine; Referring Provider Family Medicine; Visit Provider Family Medicine
DX: R11.2 Nausea with vomiting, unspecified (principal)
CPT/HCPCS: 76700

== ENCOUNTER 2025-03-15 07:30 | Outpatient (RCR) | payer MEDICAID, SELFPAY ==
--- NOTE | 2025-02-20 14:19 | HP.OTEVAL_ITS ---
Patient's Visit Information Visit Information Visit Information: NAI GÓMEZ is a 29 year old F, referred to Occupational Therapy by FERNANDEZ Parker, with a diagnosis of ulnar neuropathy at right wrist. Date of Evaluation: 02/20/25 Occupational Therapist: Becca Sweeney Subjective Subjective: pt broke her hand by punching the wall and fx 5th metacarpal in Sep, now getting N&T through dorsal side of D4/5. Pt reporting pain with UD and wrist flexion, N&T is sporadic throughout the day. no problems at night. 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 Pain hurt at first, then pain went away, then N&T started next day back at work. Then went to urgent care for work restrictions and splinting. Reinjury date was 01/25. Did xrays agai n and no new fx was present, only tissue swelling. pt reporting wrist feels weak and stiff. 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: L 75#, R 10# Lateral Pinch: L 22#, R 8# Tip-to-Tip Pinch: L 12#, R 5# Strength Comments: ballotment test noted increased stiffness through R DRUJ compared to unaffected side with increased pain through ulnar side of wrist Quick DASH-Disab of Arm,Shoulder& Hand Quick DASH Score: 43.1800 Goals Goal:: pt to demo improved R lending advisor strength by at least 75% of unaffected side to complete daily house hold tasks with dominant hand Goal:: pt to demo improved R WE/WF by 15' with no more than 2/10 pain pt to demo improved R UD by 10' with no more than 2/10 pain Goal:: pt to report no more than 3/10 pain with movement activities to complete HEP Goal:: pt to demo compliance with all HEP including nerve glides for adequate healing potential Goal:: pt to demo improved functional indep at home by decreased DASH score by 30 points Rehabilitation General Assessment: pt presenting with N&T along ulnar side of right hand following re-injury at work when cleaning the grill, impacting her neuropathy. pt with hx of R D5 metacarpal fracture in Sep, no surgery only multiple casting for healing. recent xray showed no new fracture, however, N&T can become severe as well as pain on dorsal aspect of D5 metacarpal. Pt with decreased R wrist AROM and D5 AROM as well as decreased lending advisor/pinch strength that is effecting her ability to complete daily tasks. pt expressing frustration with inability to complete normal daily tasks such as opening jars. pt would benefit from skilled OT services in OP setting to improve AROM, decrease pain and edema, reduce feelings of N&T and improve strength when appropriate. Rehabilitation Potential: Good Anticipated Interventions Anticipated Interventions: A/AAROM/PROM, Strengthening, Edema Control, Massage, Triggerpoint Release, Desensitization and Modalities Visit Plan Frequency: 2-3x /Week Duration: 3 Weeks General Plan: continue per POC x2-3/week for 3 weeks for improved AROM, reduced pain/edema, and greater strengthening to return to PLOF TEXT: Thank you for the opportunity to evaluate your patient. For Medicare and Medicare HMO plans, please review the plan of care and approve it. It will need to be FAXED BACK to us at [phone] for Medicare purposes. Please let me know if there are questions or concerns regarding this plan of care. Physician Signature: Date:
--- NOTE | 2025-06-05 15:47 | HP.OTDCNRP_ITS ---
Patient Information Patient Information: NAI GÓMEZ was seen in my office for initial evaluation on 02/20/25. 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 Pertinent comments regarding their Occupational therapy will appear below: no further apts have been scheduled and due to time lapse in services pt is d/c at this time. At this point I will be discontinuing this patient from occupational therapy. I would be happy to see this patient again in the future if found appropriate by the physician. Thank you! Nery Guerra, OTR/L, CHT
== END 2025-03-15 19:00 | disposition home or self-care (01) ==
LOC: OT 07:30
PROVIDERS: PCP Nurse Practitioner Family; Referring Provider Physician Assistant; Visit Provider Physician Assistant
DX: S62.346D Nondisplaced fracture of base of fifth metacarpal bone, right hand, subsequent encounter for fracture with routine healing (principal); G56.21 Lesion of ulnar nerve, right upper limb
CPT/HCPCS: 97110; 97140; 97165

== ENCOUNTER 2025-05-21 14:51 | Emergency (ER) | payer MEDICAID, SELFPAY ==
[2025-05-21 14:52] VITALS: BP 145/99; PULSE 89; RESP 18; TEMP 36.9; O2SAT 100
--- NOTE | 2025-05-21 15:38 | CT_ITS ---
PROCEDURE: ABDOMEN/PELVIS WITHOUT CONT 05/21/2025 REASON FOR EXAM: KIDNEY STONE TECHNIQUE: Procedure Code: [id number] Modality: CT Procedure: ABDOMEN/PELVIS WITHOUT CONT Noncontrast technique limits evaluation of the abdominal and pelvic viscera. Coronal and Sagittal reconstruction series were provided. One or more dose reduction techniques were used (e.g., Automated exposure control, adjustment of the mA and/or kV according to patient size, use of iterative reconstruction technique). RADIATION DOSE SUMMARY: DLP: 547 mGycm COMPARISON: None FINDINGS: Limited sections of the lung bases demonstrate no focal pulmonary mass or consolidations. The liver, spleen, pancreas, and both adrenal glands demonstrate no acute findings. Scattered calcifications throughout the spleen likely reflective of granulomatous disease. The gallbladder is unremarkable. The stomach is unremarkable. The small bowel loops are not dilated. The appendix is normal. No colonic obstruction. There is no free air or significant free fluid. The kidneys are unremarkable. No kidney stones. No obstructive uropathy or hydronephrosis. The urinary bladder is partially distended. The pelvic structures are intact. There is no solid pelvic mass. 1.9 x 1.4 cm cyst within the right ovary. No significant lymphadenopathy. Air-filled material within the vaginal canal likely a tampon. The aorta and IVC demonstrate no acute findings. Visualized osseous structures demonstrate no acute abnormality. CT/Abdomen/Pelvis without Cont IMPRESSION: No acute intra-abdominal process although evaluation is limited in the absence of IV contrast. No kidney stones. No obstructive uropathy or hydronephrosis. Reading [id number]
--- NOTE | 2025-05-21 16:10 | EX.ED.DYSGE1 ---
HPI History of Present Illness Chief Complaint: Flank Pain Detail of Chief Complaint: Right flank pain radiating anteriorly with dark urine and brown rossi in Informant: patient Onset/Context/Timing Onset: Weeks (Onset 1 week) Context: Sudden Onset Timing: Continuous and Waxes and wanes Quality: Pain Location: Right flank radiating anteriorly Current Severity: Mild Maximum Severity: Severe Worsened by: Nothing Relieved by: Nothing Associated Symptoms Associated Symptoms: N/B, brown-colored urine and rossi in commode Narrative Narrative: Patient is a 30-year-old female who is sexually active with women only. Last menses was 2 weeks ago. She states she is over by with a male partner. She presents because of right flank pain that radiates anteriorly with brown-colored urine and what looked like rossi at the bottom of the commode. She has no known history of renal ureterolithiasis and no known family history. She denies dysuria. She does have urgency. She states when she goes she only goes a small amount. Her urine output is decreased over the past week. She does endorse thirst but not dry mouth. She denies orthostatic symptoms. She denies fever, chills night sweats. She states she has had some intermittent diarrhea. She does not know any blood or mucus. Patient is not able to take NSAIDs because she has type I von Willebrand's disease. Prior similar symptoms: No Recent Illness/Hospitalization: No [facility] Medical History Von willebrand disease, type 1 Migraines Home Medications ?Medication ?Instructions ?Recorded ?Last Taken ?Type fremanezumab-vfrm 225 mg/1.5 mL 225 mg subcut QMONTH 10/11/24 Unknown History subcutaneous auto-injector (Ajovy) melatonin 5 mg capsule mg PO 10/11/24 Unknown History quetiapine 25 mg tablet (Seroquel) 25 mg PO QDAY 10/11/24 Unknown History morphine 15 mg immediate release 15 mg PO Q8H PRN pain 3 days #9 05/21/25 Unknown Rx tablet tabs nitrofurantoin 100 mg PO Q12 #10 CAPSULES 05/21/25 Unknown Rx monohydrate/macrocrystals 100 mg capsule Allergy/AdvReac Type Severity Reaction Status Date / Time gabapentin Allergy hives, Verified 05/21/25 14:54 throat itchy hydrocodone bitartrate (From Allergy throat Verified 05/21/25 14:54 Vicodin) swelling topiramate (From Topamax) Allergy hives, Verified 05/21/25 14:54 throat itchy tramadol Allergy throat Verified 05/21/25 14:54 swelling NSAIDS (Non-Steroidal AdvReac blood Verified 05/21/25 14:54 Anti-Inflamma clotting disorder Surgical History History of placement of ear tubes History of tonsillectomy and adenoidectomy History of arthroscopic knee surgery Social History (Updated 05/21/25 @ 16:[address] Steve Brenner MD) household members: spouse housing: house current occupational status: employed Smoking Status: Current every day smoker tobacco type: cigarettes and e-cigarettes ROS ROS ED Constitutional Constitutional ED: Denies chills, fever(s), subjective or sweats Cardiovascular Cardiovascular: Denies chest pain, orthopnea, palpitations or paroxysmal nocturnal dyspnea Respiratory/Chest Respiratory/Chest: Denies cough, dyspnea, dyspnea on exertion, orthopnea or paroxysmal nocturnal dyspnea Gastrointestinal Gastrointestinal: Reports abdominal pain, nausea and vomiting; Denies constipation, diarrhea or melena Genitourinary Genitourinary ED: Reports hematuria and other Details: Urgency ; Denies dysuria or urinary frequency Musculoskeletal Musculoskeletal: Reports other Details: Right flank pain ; Denies arthralgias, back pain, myalgias or neck pain Integumentary Denies rash Neurologic Neurologic: Denies paresthesias or weakness Hematologic/Lymphatic Hematologic/Lymphatic: Reports systems reviewed and no addt'l complaints, except as documented EXAM Physical Exam Const Vital Signs: 05/21/25 14:52 05/21/25 18:52 Temperature 98.4 F Temperature Source Oral Pulse Rate 89 78 Respiratory Rate 18 15 Blood Pressure 145/99 H 112/74 Blood Pressure Mean 114 86 Pulse Ox 100 100 Oxygen Delivery Method Room Air Positive well nourished and well developed Constitutional Narrative: Patient appears uncomfortable. She switched from [id number] trying to find position of comfort without success. General Appearance ED: well developed; Negative for cyanotic, diaphoretic or pallor HEENT Reports moist mucous membranes HEENT Narrative: Head is atraumatic and normocephalic. Ears normal. Nares patent Eyes PERRL and EOMs intact bilaterally General Eye ED: Negative for pale conjunctiva or scleral icterus Neck no lymphadenopathy and no JVD Resp normal respiratory effort and clear to auscultation bilaterally Cardio regular rate, regular rhythm, S1 normal heart sound, S2 normal heart sound and no murmurs GI normal to inspection, nondistended, normoactive bowel sounds, non-tender, non-distended and no masses; Negative for hepatosplenomegaly Back/Spine no CVA tenderness Extremity normal to inspection General Extremety ED: Negative for edema General Extremity: Negative for edema Neuro oriented x3 and CN's II-XII intact bilaterally Sensorium / Orientation: alert Psych mental status grossly normal Skin no rashes or lesions noted, no wounds and skin turgor normal General Skin Exam: elasticity normal; Negative for jaundice or pallor MDM MDM MDM Narrative Medical decision making narrative: Patient with abrupt onset of right flank pain and unable to find position comfort with dark-colored urine urgency and what may be passed stone presents with persistent pain. Will obtain CT appropriate blood work to assess for renal calculi, ureteral calculi, infection, so the scans based hydronephrosis due to other etiology then stone. Lab Data Attestation: I reviewed the patient's lab results. Lab results narrative: CBC is normal. Basic metabolic panel reveals an elevated glucose of 130 with normal CO2 and a gap. Urine is turbid amelie in color and positive for protein, ketones, occult blood, nitrites and leukoesterase. Negative for bilirubin. Micro however is negative with 0 RBCs, WBCs, squamous epithelial cells and bacteria. With her having urgency small amounts suspect that she probably does have an infection. She was not treated with NSAIDs because she has history of von Willebrand's disease. Will discharge with prescription for Macrobid. Culture was sent. Labs: Laboratory Results - last 24 hr 05/21/25 05/21/25 15:24 17:26 WBC 7.4 RBC 4.87 Hgb 15.0 Hct 42.5 MCV 87.3 MCH 30.8 MCHC 35.3 RDW Std Deviation 37.6 RDW Coeff of Nazia 11.8 Plt Count 283 MPV 10.2 Immature Gran % (Auto) 0.300 Neut % (Auto) 63.6 Lymph % (Auto) 28.4 Hettinger % (Auto) 6.6 Eos % (Auto) 0.7 Baso % (Auto) 0.4 Absolute Neuts (auto) 4.7 Absolute Lymphs (auto) 2.09 Nucleated RBC % 0 Sodium 139 Potassium 3.9 Chloride 104 Carbon Dioxide 24.1 Anion Gap 11 BUN 14 Creatinine 0.89 Est GFR (MDRD) Non-Af 88 BUN/Creatinine Ratio 15.1 Glucose 130 H Calcium 9.3 Urine Color Amelie Urine Clarity Turbid Urine pH 6.[address] [place] 1.010 Urine Protein 100 H Urine Glucose (UA) Normal Urine Ketones 5 H Urine Occult Blood 250 H Urine Nitrite Positive H Urine Bilirubin Negative Urine Urobilinogen Normal Ur Leukocyte Esterase 100 H Urine RBC 0 SEEN Urine WBC 0 SEEN Ur Squamous Epith Cells 0 SEEN Urine Bacteria 0 SEEN Urine Mucus 0 SEEN Radiography Diagnostic Testing: Clinical Impression(s) from Imaging Studies Abdomen/Pelvis CT 05/21/25 15:38 IMPRESSION: No acute intra-abdominal process although evaluation is limited in the absence of IV contrast. No kidney stones. No obstructive uropathy or hydronephrosis. [id number] Triage Chief Complaint: Flank Pain ED Provider: Steve Brenner Dx/Rx/DC Orders Clinical Impression: Dysuria, Ketosis, Acute right flank pain, Von willebrand disease, type 1 Instructions: ED Dysuria, Uncertain Cause (Adult), ED Flank Pain with Uncertain Cause Prescriptions: New nitrofurantoin monohyd/m-cryst 100 mg capsule 100 mg PO Q12 Qty: 10 0RF morphine 15 mg tablet 15 mg PO Q8H PRN (Reason: pain) 3 Days Qty: 9 0RF No Action quetiapine [Seroquel] 25 mg tablet 25 mg PO QDAY Ajovy Autoinjector 225 mg/1.5 mL auto-injector 225 mg subcut QMONTH melatonin 5 mg capsule PO Primary Care Provider: Apurva Lee Referrals: Apurva Lee, [facility] [Primary Care Provider] - 3-5 Days if not improving Print Language: Malay Disposition Disposition: Home, Self Care
[2025-05-21 16:16] LABS: Hematocrit 42.5 % (37-47); Hemoglobin 15.0 g/dL (12.0-15.0); Immature Granulocytes Count 0.020 X10^3/uL (0.0-0.0); Mean Corp Hgb Conc 35.3 g/dL (32-36); Mean Corpuscular Volume 87.3 fL (81-99); Mean Platelet Vol. 10.2 fl (6.2-12.0); NRBC Flagged by Analyzer 0 % (0-5); Platelet Count 283 K/mm3 (150-450); RBC Distribution Width CV 11.8 % (11.6-14.6); RBC Distribution Width SD 37.6 fl (35.1-43.9); Red Blood Count 4.87 M/mm3 (4.2-5.4); White Blood Count 7.4 K/mm3 (4.4-11.0)
[2025-05-21 16:42] LABS: Anion Gap 11 (5-15); BUN 14 mg/dL (4-19); BUN/Creat Ratio 15.1 RATIO (10-20); Calcium,Total 9.3 mg/dL (7.6-11.0); Carbon Dioxide 24.1 mmol/L (21.0-32.0); Chloride 104 mmol/L (98-108); Glucose 130 mg/dL (70-99); Potassium 3.9 mmol/L (3.3-5.1)
[2025-05-21 17:32] LABS: Mucous, Urine 0 SEEN /hpf (<or=2+)
[2025-05-21 18:16] LABS: Color, Urine Amber (Yellow); Glucose, Dipstick Normal (Normal); Ketone-Dipstick 5 mg/dl (Negative); Leukocyte Esterase-Dipstick 100 /ul (Negative); Nitrite-Dipstick Positive (Negative); Occult Blood-Urine 250 /ul (Negative); Protein-Dipstick 100 mg/dl (Negative); Specific Gravity, Urine 1.010 (1.002-1.030); Urine Bilirubin Dipstick Negative (Negative)
[2025-05-21 18:52] VITALS: BP 112/74; PULSE 78; RESP 15; O2SAT 100
[2025-05-21 19:31] VITALS: BP 112/74; PULSE 78; RESP 15; TEMP 36.7; O2SAT 100
[2025-05-21 19:54] LABS: Red Blood Cells-Urine 5-10 SEEN /hpf (0-5); Squamous Epithelial Cells - UA 0-5 SEEN /hpf (5-10)
== END 2025-05-21 19:35 | disposition home or self-care (01) ==
PROVIDERS: Emergency Provider Emergency Medicine; PCP Nurse Practitioner Family; Visit Provider Emergency Medicine
DX: R30.0 Dysuria (principal); E88.89 Other specified metabolic disorders; D68.01 Von Willebrand disease, type 1; R10.9 Unspecified abdominal pain; F17.210 Nicotine dependence, cigarettes, uncomplicated; F17.290 Nicotine dependence, other tobacco product, uncomplicated
CPT/HCPCS: 74176; 80048; 81001; 85025; 87086; 87088; 96374; 96375; 96376; 99283; A4216; J2405